=== PATIENT | male | born 1945 | race Caucasian/White ===

== ENCOUNTER → 2018-01-18 | Outpatient (CLI) | payer MEDICARE, BC ==
--- NOTE | 2018-01-25 09:54 | P.ARTDOP ---
Arterial Doppler LOWER EXTREMITY ARTERIAL DOPPLER: DATE OF SERVICE: 01/18/2018 Reason for study: Bilateral leg weakness, unable to walk. Doppler waveforms: Multiphasic bilaterally throughout. Pulse volume recording: Normal configuration. Pressure gradients: None. Ankle-brachial indices: Greater than 1 bilaterally. Toe pressures: [] on the right, [] on the left Impression: Normal study.
== END | disposition home or self-care (01) ==
LOC: RADUSWWP 14:09
PROVIDERS: ATTEND Psychiatry & Neurology Neurology
DX: I70.213 Atherosclerosis of native arteries of extremities with intermittent claudication, bilateral legs (principal)
CPT/HCPCS: 93923

== ENCOUNTER → 2019-04-19 | Outpatient (CLI) | payer MEDICARE, BC ==
--- NOTE | 2019-04-20 10:57 | NM ---
EXAMINATION TYPE: NM thyroid image w uptake DATE OF EXAM: 04/20/2019 COMPARISON: NONE HISTORY: Change in weight, heart palpitations TECHNIQUE: Thyroid iodine uptake is calculated and images performed after the oral administration of 302 uCi 1-123 Capsule. FINDINGS: There is a diffuse increased uptake throughout both lobes of the thyroid. Questionable cold defect involving the inferolateral right thyroid lobe.. The 4 hour iodine uptake is calculated at 1 5.2% (normal range 8-14%). The 24-hour iodine uptake is calculated at 41.1% (normal range 15-35%). IMPRESSION: 1. Findings are suggestive of hyperthyroidism. 2. Questionable cold defect inferior lateral right lobe thyroid for which ultrasound suggested.
== END | disposition home or self-care (01) ==
LOC: RADNMMAIN 09:26
PROVIDERS: ATTEND Family Medicine
DX: R94.6 Abnormal results of thyroid function studies (principal); Z88.1 Allergy status to other antibiotic agents
CPT/HCPCS: 78014; A9516

== ENCOUNTER → 2019-05-04 | Outpatient (CLI) | payer MEDICARE, BC ==
--- NOTE | 2019-05-04 14:27 | US ---
EXAMINATION TYPE: US thyroid st tissue head/neck DATE OF EXAM: 05/04/2019 COMPARISON: NM 04/19/19 CLINICAL HISTORY: E04.1 RT LOBE NODULE. Abnormal nuclear study. Abnormal thyroid labs. GLAND SIZE: Right Lobe: 5.2 x 2.1 x 1.9 cm Overall Parenchyma: heterogenous Left Lobe: 4.2 x 1.6 x 1.4 cm Overall Parenchyma: heterogeneous Isthmus Thickness: 0.5 cm NODULES RIGHT: # of nodules measured on right: ?1 1. 1.1 X 0.3 x 0.9 cm isoechoic solid nodule at the lower pole with poorly defined margins; possibl e extrathyroid extension. This nodule is taller than wide and shows intranodular vascularity. Prior size: No previous ? Nodule vs normal thyroid tissue. LEFT: # of nodules measured on left: 0 ISTHMUS: # of nodules measured in the isthmus: 1 1. 0.3 cm simple cyst toward right side. Bilateral neck scanned, no evidence of lymphadenopathy. Right lymph node = 1.3 x 0.7 x 0.6 cm IMPRESSION: Cannot exclude marked far posterior mid to lower pole right thyroid nodule. Total points 6, TR 4 lesion. Advise ultrasound follow-up.
== END | disposition home or self-care (01) ==
LOC: RADUSWWP 13:34
PROVIDERS: ATTEND Family Medicine
DX: E04.1 Nontoxic single thyroid nodule (principal); R22.0 Localized swelling, mass and lump, head; E05.90 Thyrotoxicosis, unspecified without thyrotoxic crisis or storm; Z91.048 Other nonmedicinal substance allergy status; Z88.8 Allergy status to other drugs, medicaments and biological substances
CPT/HCPCS: 76536

== ENCOUNTER → 2019-05-25 | Outpatient (CLI) | payer MEDICARE, BC ==
--- NOTE | 2019-05-28 12:29 | CT ---
EXAMINATION TYPE: CT soft tissue neck wo con DATE OF EXAM: 05/25/2019 COMPARISON: Ultrasound 05/04/2019 HISTORY: 73-year-old male abnormal results thyroid function test. TECHNIQUE: Contiguous axial scanning of the soft tissues of the neck without IV contrast. Coronal and sagittal reconstructions performed. CT DLP: 500.6 mGycm Automated exposure control for dose reduction was used. FINDINGS: Visualized intracranial structures, orbits and globes, paranasal sinuses, and mastoid air cells appea r clear. Lack of IV contrast limits assessment of the cervical mucosal space and also makes it more difficult to assess for underlying lymphadenopathy. In the visualized upper thorax, large caliber to the main left pulmonary artery at 3.2 cm suggests un derlying pulmonary arterial hypertension. Nonenlarged and borderline to mildly enlarged mediastinal lymph nodes measure up to 1 cm precarinal r egion, 9 mm AP window, and 1 cm upper right paratracheal. There is a cutaneous/subcutaneous nodule along the anterior right upper chest measuring 1.3 cm that s hould be correlated with physical exam. Right lobe of the thyroid gland is mildly enlarged at 5.3 cm craniocaudal. There is a subtle nodular extension from the posterior lower pole of the right lobe, reference axial image 40 and sagittal imag e 37 which may correspond to the nodule seen on ultrasound. This is a very subtle finding only seen a fter correlation with the recent ultrasound. The mandibular and parotid glands appear satisfactory. Scattered small abnormal calcifications are present along the cheeks of uncertain clinical significan ce. No suspicious cervical lymphadenopathy identified. Bones: Moderate to advanced endplate spondylotic change throughout with reversal of the normal cervic al lordosis and degenerative or posttraumatic interbody ankylosis at C3-C4 with fixed grade 1 retroli sthesis here. IMPRESSION: 1. AFTER CORRELATING WITH THE PATIENT'S RECENT 05/04/2019 THYROID ULTRASOUND, THERE IS VERY SUBTLE NOD ULAR EXTENSION FROM THE POSTERIOR LOWER POLE OF THE RIGHT THYROID LOBE PROBABLY CORRESPONDING TO THE NODULE SEEN ON 05/04/2019. THIS CAN BE FOLLOWED BY ULTRASOUND. 2. A CUTANEOUS/SUBCUTANEOUS NODULE MEASURING 1.3 CM ALONG THE ANTERIOR RIGHT UPPER CHEST. CORRELATE W ITH PHYSICAL EXAM FINDINGS TO EXCLUDE A SUSPICIOUS CUTANEOUS LESION. FINDING MAY REPRESENT A SEBACEOU S CYST. 3. MEASUREMENTS SUGGEST UNDERLYING PULMONARY ARTERIAL HYPERTENSION. CLINICALLY CORRELATE. 4. IN ADDITION, BORDERLINE ENLARGED MEDIASTINAL LYMPH NODES ARE SEEN IN THE UPPER THORAX. THREE-MONTH FOLLOW-UP CONTRAST ENHANCED CT CHEST RECOMMENDED TO REASSESS.
== END | disposition home or self-care (01) ==
LOC: RADCTMAIN 14:38
PROVIDERS: ATTEND Family Medicine
DX: E04.1 Nontoxic single thyroid nodule (principal); R94.6 Abnormal results of thyroid function studies; R22.2 Localized swelling, mass and lump, trunk; I77.89 Other specified disorders of arteries and arterioles; R59.0 Localized enlarged lymph nodes
CPT/HCPCS: 70490

== ENCOUNTER → 2019-06-23 | Outpatient (CLI) | payer MEDICARE, BC ==
[2019-06-23 14:59] LABS: HCT 31.5 % (39.0-53.0); MCH 26.3 pg (25.0-35.0); MCHC 31.6 g/dL (31.0-37.0); Platelet Count 165 k/uL (150-450); RBC 3.79 m/uL (4.30-5.90); RDW 15.7 % (11.5-15.5); WBC 2.1 k/uL (3.8-10.6)
[2019-06-23 15:05] LABS: Prothrombin Time 10.5 sec (9.0-12.0)
[2019-06-23 15:06] LABS: Calcium 9.3 mg/dL (8.4-10.2); Potassium 4.2 mmol/L (3.5-5.1); Total Bilirubin 0.7 mg/dL (0.2-1.3); Total Protein 6.5 g/dL (6.3-8.2)
[2019-06-23 15:07] LABS: Appearance,Urine Clear (Clear); Bilirubin,Urine Negative (Negative); Blood,Urine Negative (Negative); Color,Urine Yellow; Glucose,Urine (UA) Negative (Negative); Ketones,Urine Negative (Negative); Leukocyte Esterase,Urine Negative (Negative); Nitrite,Urine Negative (Negative); PH, Urine 6.5 (5.0-8.0); Protein,Urine Negative (Negative); Specific Gravity,Urine 1.014 (1.001-1.035); Urobilinogen,Urine <2.0 mg/dL (<2.0)
== END | disposition home or self-care (01) ==
LOC: LABPAT 13:45
PROVIDERS: ATTEND Orthopaedic Surgery
DX: Z01.818 Encounter for other preprocedural examination (principal); Z01.812 Encounter for preprocedural laboratory examination; M17.11 Unilateral primary osteoarthritis, right knee
CPT/HCPCS: 36415; 80053; 81003; 85027; 85610; 85730; 86850; 86900; 86901; 87070; 93005

== ENCOUNTER → 2019-09-11 | Outpatient (CLI) | payer MEDICARE, BC ==
[2019-09-11 11:47] LABS: African American GFR (CKD) >90 (>60 ml/min/1.73 sqM); Blood Urea Nitrogen 21 mg/dL (9-20); Non-African American GFR(CKD) 84 (>60 ml/min/1.73 sqM)
--- NOTE | 2019-09-11 13:10 | CT ---
EXAMINATION TYPE: CT chest w con DATE OF EXAM: 09/11/2019 COMPARISON: Neck CT May 25, 2019 HISTORY: new found lymphadenopathy on prior neck ct, abnormal CT. CT DLP: 408.3 mGycm. Automated Exposure Control for Dose Reduction was Utilized. TECHNIQUE: CT scan of the thorax is performed following with IV Contrast, patient injected with 100 mL of Isovue 300. FINDINGS: LUNGS: Mild to moderate linear scarring and/or atelectasis in both lower lobes most prominent just ab ove diaphragm. No suspicious nodules or masses. No pleural effusion or pneumothorax bilaterally. MEDIASTINUM: Correlating with neck CT there are prominent but subcentimeter lymph nodes throughout th e mediastinum. Right paratracheal lymph node measuring 1.3 x 0.9 cm axial image 17 not significantly changed from prior study image 24. 2 adjacent prominent pericarinal lymph nodes axial image 26 noted, largest measures 1.5 x 1.1 cm axial image 26. Small pericardial effusion is seen most prominent infe riorly. Cardiomegaly. Moderate three-vessel coronary artery calcification with moderate to severe chance trial dilatation. OTHER: Prominent bilateral subareolar gynecomastia. Splenomegaly measuring 17.0 cm long axis axial im age 67. Subcutaneous vertical sutures overlying the upper to mid abdomen are partially imaged. Occasi onal diverticula visualized colon. Mild fluid signal throughout the upper abdominal mesentery. Spine is straightened with mild multilevel spurring. Prominent but subcentimeter bilateral axillary lymph n odes. Stable 1.2 cm right upper medial subcutaneous lesion axial image 18 presumed dermatologic or ot her benign etiology. IMPRESSION: Prominent borderline enlarged thoracic lymph nodes as detailed above without significant change from prior CT. Cannot exclude neoplastic process such as lymphoma. Mild leah mesentery though t present. Splenomegaly noted. Need for further workup with PET CT or CT abdomen and pelvis study angely uld be based on clinical and lab correlation.
== END | disposition home or self-care (01) ==
LOC: RADCTMAIN 11:08
PROVIDERS: ATTEND Internal Medicine Hematology & Oncology
DX: R59.0 Localized enlarged lymph nodes (principal); R91.8 Other nonspecific abnormal finding of lung field
CPT/HCPCS: 82565; 84520; 71260; 36415; Q9967

== ENCOUNTER 2020-12-26 06:29 | Day surgery (SDC) | payer MEDICARE, BC ==
[2020-12-23 16:07] VITALS: BMI 27.1
[~2020-12-26 06:29] MED LIST: LACTATED RINGERS 1,000 ML IV SCH; LIDOCAINE 1% (10MG/ML) FOR IV START INTRADERMA PRN
[2020-12-26 06:59] VITALS: RESP 16; TEMP 97.9
[2020-12-26] MEDS ORDERED: PROPOFOL 10 MG/ML 20 ML VIAL IV ONE (07:06)
[2020-12-26] MEDS ORDERED: fentaNYL (PF) 50 MCG/ML 2 ML AMP ONE (07:06)
[2020-12-26 08:00] LABS: Basophils % (A) 0 %; Eosinophils # (A) 0.1 k/uL (0-0.7); Eosinophils % (A) 4 %; HCT 31.8 % (39.0-53.0); HGB 10.1 gm/dL (13.0-17.5); Lymphocytes # (A) 0.6 k/uL (1.0-4.8); Lymphocytes % (A) 28 %; MCH 27.8 pg (25.0-35.0); MCHC 31.7 g/dL (31.0-37.0); MCV 87.6 fL (80.0-100.0); Mean Platelet Volume 7.3; Monocytes # (A) 0.2 k/uL (0-1.0); Monocytes % (A) 8 %; Neutrophils # (A) 1.1 k/uL (1.3-7.7); Neutrophils % (A) 57 %; Platelet Count 155 k/uL (150-450); RBC 3.63 m/uL (4.30-5.90); RDW 14.4 % (11.5-15.5); Reticulocyte % 1.7 % (0.5-2.0)
[2020-12-26 08:13] VITALS: BP 125/78; PULSE 48
--- NOTE | 2020-12-26 08:26 | PCN ---
PROCEDURE NOTE PROCEDURE: Bone marrow aspirate and biopsy. DATE OF PROCEDURE: December 26, 2020. PREOPERATIVE DIAGNOSIS: Pancytopenia. POSTOPERATIVE DIAGNOSIS: Pancytopenia. SITE: Right iliac crest. ANESTHESIA: Local with IV systemic sedation. DETAILS: Utilizing sterile technique, the skin overlying the right iliac crest was prepared with Betadine and alcohol. After adequate sterile draping, systemic sedation and local anesthesia with 1% lidocaine, a size 11, 4-inch Jamshidi needle was utilized to access the periosteum with ease. A total of 16 mL of aspirate and 3 cm bone core biopsies were obtained. The patient tolerated the procedure very well. There was no immediate procedure related complications. TOTAL BLOOD LOSS: Less than 1 mL. RESULTS: Pending. MMODL / IJN: [id number] /
== END 2020-12-26 08:13 | disposition home or self-care (01) ==
LOC: OR 06:29
PROVIDERS: ATTEND Internal Medicine Hematology & Oncology
DX: D72.810 Lymphocytopenia (principal); D70.8 Other neutropenia; I10 Essential (primary) hypertension; Z98.890 Other specified postprocedural states; Z90.89 Acquired absence of other organs; Z80.3 Family history of malignant neoplasm of breast; Z80.42 Family history of malignant neoplasm of prostate; Z86.19 Personal history of other infectious and parasitic diseases; E53.8 Deficiency of other specified B group vitamins; D50.9 Iron deficiency anemia, unspecified; I48.92 Unspecified atrial flutter; I27.20 Pulmonary hypertension, unspecified; E07.9 Disorder of thyroid, unspecified; K21.9 Gastro-esophageal reflux disease without esophagitis; Z79.01 Long term (current) use of anticoagulants; Z79.899 Other long term (current) drug therapy
CPT/HCPCS: 85025; 85045; 38222; J3010; J2704

== ENCOUNTER → 2021-06-10 | Outpatient (CLI) | payer MEDICARE, BC ==
[2021-06-10 14:52] LABS: INR 1.1 (<1.2); Partial Thromboplastin Time 28.7 sec (22.0-30.0); Prothrombin Time 11.3 sec (9.0-12.0)
[2021-06-10 22:57] LABS: HCT 32.4 % (39.6-50.0); MCH 27.9 pg (27.0-32.0); MCHC 30.9 g/dL (32.0-37.0); MCV 90.5 fL (80.0-97.0); Mean Platelet Volume 10.9 fL (9.5-12.2); Platelet Count 175 X 10*3/uL (140-440); RBC 3.58 X 10*6/uL (4.40-5.60); RDW 14.5 % (11.5-14.5); WBC 2.37 X 10*3/uL (4.50-10.00)
[2021-06-11 05:40] LABS: African American GFR (CKD) 80.7 (60.0-200.0); Albumin 4.3 g/dL (3.8-4.9); Albumin/Globulin Ratio 1.74 (1.60-3.17); Anion Gap 15.5 mmol/L (4.00-12.00); BUN/Creat Ratio 16.76 Ratio (12.00-20.00); Blood Urea Nitrogen 17.6 mg/dL (9.0-27.0); Globulin 2.5 g/dL (1.6-3.3); Non-African American GFR(CKD) 69.6 (60.0-200.0); Total Bilirubin 0.5 mg/dL (0.30-1.20); Total Protein 6.7 g/dL (6.2-8.2)
== END | disposition home or self-care (01) ==
LOC: LABWHC1 13:51
PROVIDERS: ATTEND Orthopaedic Surgery
DX: Z01.812 Encounter for preprocedural laboratory examination (principal)
CPT/HCPCS: 36415; 80053; 85027; 85610; 85730; 87070; 93005

== ENCOUNTER → 2021-07-16 | Outpatient (CLI) | payer MEDICARE, BC ==
[2021-07-16 12:49] LABS: INR 1.1 (<1.2); Partial Thromboplastin Time 29.7 sec (22.0-30.0); Prothrombin Time 11.1 sec (9.0-12.0)
[2021-07-16 13:13] LABS: Appearance,Urine Clear (Clear); Bilirubin,Urine Negative (Negative); Blood,Urine Trace (Negative); Color,Urine Yellow; Glucose,Urine (UA) Negative (Negative); Hyaline Casts,Urine 3 /lpf (0-2); Ketones,Urine Negative (Negative); Leukocyte Esterase,Urine Negative (Negative); Mucus,Urine Rare /hpf; Nitrite,Urine Negative (Negative); PH, Urine 5.5 (5.0-8.0); Protein,Urine 1+ (Negative); RBC,Urine 4 /hpf (0-5); Specific Gravity,Urine 1.026 (1.001-1.035); Squamous Epithelial Cell,Urine <1 /hpf (0-4); Urobilinogen,Urine <2.0 mg/dL (<2.0); WBC,Urine 2 /hpf (0-5)
== END | disposition home or self-care (01) ==
LOC: LABPAT 11:38
PROVIDERS: ATTEND Orthopaedic Surgery
DX: Z01.812 Encounter for preprocedural laboratory examination (principal); M17.11 Unilateral primary osteoarthritis, right knee
CPT/HCPCS: 81001; 85610; 85730

== ENCOUNTER 2021-07-22 11:38 | Day surgery (SDC) | payer MEDICARE, BC ==
[2021-07-15 10:45] VITALS: BMI 27.8
[~2021-07-22 11:38] MED LIST changes: +ACETAMINOPHEN TAB 500 MG TAB PO PRN; +DEXAMETHASONE SOD PHOSPHATE 4 MG/ML 1 ML VIAL IV ONE; +GABAPENTIN 300 MG CAP PO PRN; -LACTATED RINGERS 1,000 ML IV SCH; -LIDOCAINE 1% (10MG/ML) FOR IV START INTRADERMA PRN; +MELOXICAM 7.5 MG TAB PO PRN; +MIDAZOLAM 2 MG/2 ML VIAL IV PRN; +ONDANSETRON 4 MG/2 ML VIAL IVP ONE; +ROPIVACAINE/EPI/CLONIDINE/KET 50 ML SYRINGE MISCELLANE PRN; +TRANEXAMIC ACID 1,000 MG in SODIUM CHLORIDE 0.9% 100 ML IVPB PRN
[2021-07-22] MEDS ORDERED: MIDAZOLAM 2 MG/2 ML VIAL IVP ONE (12:50)
[2021-07-22] MEDS: LACTATED RINGERS 1,000 ML IV SCH (12:56)
[2021-07-22] MEDS ORDERED: HYDROmorphone 0.5 MG/0.5 ML SYRINGE IVP PRN ×2 (13:11)
[2021-07-22] MEDS ORDERED: ePHEDrine 50 MG/ML 1 ML AMP ONE (13:11)
[2021-07-22] MEDS ORDERED: fentaNYL (PF) 50 MCG/ML 2 ML AMP ONE (13:11)
[2021-07-22] MEDS ORDERED: MAGNESIUM HYDROXIDE 2,400 MG/10 ML CUP PO PRN (13:11)
[2021-07-22] MEDS ORDERED: PROPOFOL 10 MG/ML 20 ML VIAL IV ONE (13:11)
[2021-07-22] MEDS ORDERED: NALOXONE 0.4 MG/ML 1 ML VIAL IV PRN (13:11)
[2021-07-22] MEDS ORDERED: HYDROmorphone 0.2 MG/1 ML SYRINGE IVP PRN (13:11)
[2021-07-22] MEDS ORDERED: DEXAMETHASONE SOD PHOSPHATE 4 MG/ML 1 ML VIAL ONE (13:11)
[2021-07-22] MEDS ORDERED: bisacodyL 10 MG SUPP RECTAL PRN (13:11)
[2021-07-22] MEDS ORDERED: GLYCOPYRROLATE 0.2 MG/ML 2 ML VIAL ONE (13:11)
[2021-07-22] MEDS ORDERED: MIDAZOLAM 2 MG/2 ML VIAL ONE (13:11)
[2021-07-22] MEDS ORDERED: PHENYLEPHRINE-0.9% NACL SYG 1,000 MCG/10 ML SYRINGE ONE (13:11)
[2021-07-22] MEDS ORDERED: ROPIVACAINE 5 MG/ML 30 ML VIAL ONE (13:11)
[2021-07-22] MEDS ORDERED: ONDANSETRON 4 MG/2 ML VIAL IVP PRN (13:11)
[2021-07-22] MEDS ORDERED: NA PHOS,M-B/NA PHOS,DI-BA 133 ML ENEMA RECTAL PRN (13:11)
[2021-07-22] MEDS ORDERED: SODIUM CHLORIDE 0.9% 100 ML BAG ONE (13:11)
[2021-07-22] MEDS ORDERED: TRANEXAMIC ACID 1,000 MG/10 ML VIAL ONE (13:11)
[2021-07-22] MEDS ORDERED: HYDROcodone/APAP 7.5-325MG 1 EACH TAB PO PRN (13:12)
[2021-07-22] MEDS ORDERED: ceFAZolin 1,000 MG in SODIUM CHLORIDE 0.9% 1,000 ML IRRIGATION ONE (13:16)
[2021-07-22] MEDS ORDERED: LACTATED RINGERS 1,000 ML IV ONE ×4 (14:10→17:25)
--- NOTE | 2021-07-22 14:40 | P.OP ---
Date of Procedure: 07/22/21 Preoperative Diagnosis: Severe osteoarthritis right knee Postoperative Diagnosis: Severe osteoarthritis right knee Procedure(s) Performed: Right total knee arthroplasty Implants: Welch [employer] Nephew Journey II Oxinium bicruciate stabilized femoral component size 7, right [employer] Journey nonporous tibial baseplate size 7, right [employer] Journey II, constrained articular insert, size 9 mm, Size 7-8, right [employer] Journey Johnna II resurfacing patellar component, oval, 35 mm All components were cemented using Palacos R bone cement The articulation is Oxinium on polyethylene Anesthesia: spinal Surgeon: Bo Martinez Furnace Filler #1: Lola Ferguson Furnace Filler #2: Taiwo Hutchinson Estimated Blood Loss (ml): 50 Pathology: other (Bone and cartilage) Condition: stable Disposition: PACU Indications for Procedure: After failure of conservative treatment we discussed the surgical and nonsurgical treatment options at length. Patient wishes to proceed with a total knee arthroplasty. Complications specific to this procedure were discussed at length, including but not limited to infection, bleeding, stiffness, and nerve injury. Covid-19 was also discussed at length with the patient, and they are aware of the current policies and procedures. The patient was given the option of delaying surgery, but they elect to proceed knowing these risks. Patient is aware of all these complications and informed consent was obtained Operative Findings: The operative findings are consistent with severe osteoarthritis of the right knee Description of Procedure: Patient was seen in the preoperative area and the consent was reviewed and the operative site was marked with a skin marker. The patient verified the procedure and the operative site. An adductor canal pain catheter and an iPACK block was placed by anesthesia in the preoperative area. The patient was then brought to the operating room and given preoperative antibiotics intravenously. A gram of transexamic acid was given intravenously. A spinal anesthetic was administered by the anesthesia department. A tourniquet was placed on the upper thigh and the lower extremity was prepped with chlorhexidine and draped in usual sterile fashion. A universal timeout was then performed which confirmed the patient's name, surgical site, ALLERGIES, and consent. The lower extremity was then exsanguinated and tourniquet was inflated to 250 mmHg. A standard anterior midline approach to the knee was performed. The skin and subcutaneous tissue were sharply dissected down to the patellar tendon. A medial parapatellar arthrotomy was then performed. The knee was then extended, the patellar was everted, and the knee was again flexed. The infra-patellar fat pad was removed in order to enhance exposure. The anterior horns of both menisci were excised, and a release was performed to the posterior medial aspect of the knee. On gross visual inspection, there was complete loss of articular cartilage in the medial and patellofemoral joint spaces. There was also significant cartilage damage in the lateral compartment. There were multiple periarticular osteophytes globally about the knee which were then removed with a Ronguer. The femoral canal was then opened with the 9.5 mm intramedullary drill. The 8 mm intramedullary opal was then inserted into the femoral canal with the distal femoral cutting guide set for 5 of valgus. The distal femoral cutting block was then pinned in place. The intramedullary opal was then removed, and the distal femur was then cut. The cutting block was then removed and the cut was checked for symmetry. The resected bone was then measured to confirm the appropriate distal femoral resection. Next, the sizing guide was then placed and set for 3 external rotation based off of the epicondylar axis and Whitesides line. Pins were then placed and the drill holes, and the femur was sized with the sizing stylus. The pins were then removed, and the sizing guide was then removed. The spikes of the femoral block was then placed into the predrilled holes, and malleted into place. Two 45 mm pins were then placed into the fixation holes on the cutting block. An cherri wing was then used to ensure there would be no notching with the anterior cut. The anterior condyles were cut without notching. The anterior chord cut was then performed, followed by the posterior cut, posterior chamfer cut, and the anterior chamfer cut. The collateral ligaments were protected during the entire process. The cutting blo ck was then removed. Any remaining bone and osteophytes were removed from the femur with a Rominger. The femoral canal was plugged with autologous bone. Attention was then directed to the tibia. The remaining ACL was removed with a Ronguer, and the tibia was then gently subluxed forward with a large bent knee retractor. Any remaining menisci were excised. The posterior lateral corner was cauterized in order to coagulate the lateral geniculate artery. The extra medullary tibial cutting guide was then placed, set for the appropriate rotation, slope, and depth of resection. The proximal tibia cutting guide was then pinned in place. Proximal tibia was then cut and sized. The femoral trial was placed. A narrow saw blade was then used to remove the anterior intracondylar femoral bone. The CR notch trial was then placed. The tibial trial was placed with the appropriate-sized insert. The knee was able to fully extend and flex to 130 and was stable throughout all range of motion. The knee was then extended and the patella was everted. Patella was then measured, and then using an osteotomy guide, the patella was cut at the appropriate level. The patella was then measured and drilled and the patella trial was then placed. The knee was then taken through range of motion with the patella trial and the patella tracked normally using the no thumbs technique.. The knee was then extended patella trial was then removed and the patella was everted. Knee was then flexed and lug holes were drilled through the femoral trial and the femoral trial was then removed. The tibial was then re-exposed, and the tibial broach guide was then pinned in place after it was set for the appropriate rotation to allow for the most coverage without overhang. The tibia was then reamed and broached. The cut surfaces of bone were then irrigated with pulsatile lavage. The knee was also irrigated with Irrisept solution. The components were then opened, the cement was mixed, and the components were then cemented in place. The cement was allowed to harden with the knee in full extension. After the cemented hardened. The tourniquet was released, and hemostasis was obtained. A second gram of transexamic acid was given intravenously. The knee was again irrigated. The knee was again taken through range of motion and found to be stable throughout all range of motion of 0-130, and the patella tracked normally. The fascia was then closed with 0 Vicryl followed by #2 strata fix suture. The subcutaneous tissue was closed with 3-0 Vicryl and 3-0 strata fix. Exofin glue was used for the skin and placed with the knee in flexion. After the glue had dried, and Optafoam silver impregnated dressing was applied. The patient was then transferred to recovery room in stable condition. The human resources assistant manager HANY Andujar was required due the complexity surgery and the need for a skilled surgical garment inspector. She assisted in positioning, draping, retraction, and closure of the wound.
--- NOTE | 2021-07-22 16:06 | XR ---
EXAMINATION TYPE: XR knee limited RT DATE OF EXAM: 07/22/2021 COMPARISON: NONE TECHNIQUE: Two views submitted HISTORY: Post op FINDINGS: There is a prosthetic knee in near anatomic alignment. There is soft tissue edema and emphysema. IMPRESSION: 1. Postoperative change. Appears in near-anatomic alignment
[2021-07-22] MEDS: HYDROmorphone 0.5 MG/0.5 ML SYRINGE IVP PRN ×2 (16:49→17:14)
[2021-07-22] MEDS: SODIUM CHLORIDE 0.9% 1,000 ML IV SCH (17:57)
--- NOTE | 2021-07-22 19:37 | P.ANPRN ---
Procedure Note - Anesthesia - Nerve Block Performed Right Adductor Canal Infusion Time Out Performed: Yes Date of Procedure: 07/22/21 Procedure Start Time: 12:49 Procedure Stop Time: 12:59 Location of Patient: PreOp Indication: Acute Post-Operative Pain, Requested by Surgeon Sedation Type: Sedate with meaningful contact maintained Preparation: Sterile Prep, Sterile Dressing Position: Supine Catheter: Indwelling Needle Types: Pajunk Needle Gauge: 21 Ultrasound used to visualize needle placement: Yes Ultrasound used to observe medication spread: Yes Blood Aspirated: No Pain Paresthesia on Injection Noted: No Resistance on Injection: Normal Image Stored and Saved: Yes Events: Uneventful and Well Tolerated (ropi .5% 20cc)
--- NOTE | 2021-07-22 19:38 | P.ANPRN ---
Procedure Note - Anesthesia - Nerve Block Performed Right Jovanck Single Time Out Performed: Yes Date of Procedure: 07/22/21 Procedure Start Time: 13:00 Procedure Stop Time: 13:05 Location of Patient: PreOp Indication: Acute Post-Operative Pain, Requested by Surgeon Sedation Type: Sedate with meaningful contact maintained Preparation: Sterile Prep Position: Supine Needle Types: Pajunk Needle Gauge: 21 Ultrasound used to visualize needle placement: Yes Ultrasound used to observe medication spread: Yes Blood Aspirated: No Pain Paresthesia on Injection Noted: No Resistance on Injection: Normal Image Stored and Saved: Yes Events: Uneventful and Well Tolerated (ropi .5% 25cc plus dexamethasone 4mg)
[2021-07-22] MEDS ORDERED: SENNOSIDES-DOCUSATE SODIUM 1 EACH TAB PO SCH (21:00)
[2021-07-22] MEDS: HYDROcodone/APAP 7.5-325MG 1 EACH TAB PO PRN (21:20)
[2021-07-23] MEDS: HYDROcodone/APAP 7.5-325MG 1 EACH TAB PO PRN ×2 (05:20→11:12)
[2021-07-23] MEDS: LACTATED RINGERS 1,000 ML IV SCH (06:16)
--- NOTE | 2021-07-23 07:33 | P.DS ---
Providers Expected date of discharge: 07/23/21 Attending physician: Bo Martinez Consults: 07/22/21 13:11 Consult Physician Routine Consulting Provider: Clovis Espinosa Consult Reason/Comments: medical management Do you want consulting provider notified?: Yes Primary care physician: Clovis Espinosa - Discharge Diagnosis(es) (1) Primary localized osteoarthritis of right knee Current Visit: Yes Status: Acute (2) Status post total right knee replacement Current Visit: Yes Status: Acute Hospital Course: This is a 75-year-old male who was last seen with complaint of continued right knee pain. The patient has a known history of degenerative arthritis of the right knee and presents to discuss surgical options. After discussion and consideration the patient elects to proceed with total right knee arthroplasty. The patient is seen preoperatively by his primary care physician and cleared for surgery. The patient is admitted to [facility] for total right knee arthroplasty. The procedure is performed without complication or sequelae. Patient is doing well postoperatively. Vital signs are stable at discharge. Labs are stable at discharge. the patient is ambulating well with walker with minimal assistance. The patient is discharged to home on postop day #1 pending medical clearance. Please see orders and refer to the med rec for accurate list of medications. Patient Condition at Discharge: Good Plan - Discharge Summary Discharge Rx Participant: No New Discharge Prescriptions: New HYDROcodone/APAP 7.5-325MG [Aurora 7.5-325] 1 - 2 tab PO Q6H PRN #32 tab PRN Reason: Pain Sennosides [Senokot] 2 tab PO DAILY PRN #60 tablet PRN Reason: Constipation Ondansetron Odt [Zofran Odt] 1 tab PO Q8HR PRN #10 tab PRN Reason: Nausea No Action Diclofenac Sodium [Voltaren] 75 mg PO BID PRN PRN Reason: Pain ALPRAZolam [Xanax] 0.5 mg PO QID PRN PRN Reason: Anxiety Multivit-Min/Folic/Vit K/Lycop [Men's Multivitamin Tablet] 1 each PO DAILY Ergocalciferol [Vitamin D2 (1250 Mcg = 72878 Iu)] 1,250 mcg PO Q30D Gabapentin 300 mg PO TID Folic Acid 1 mg PO DAILY Albuterol Sulfate [Ventolin HFA] 1 - 2 puff INHALATION Q6H PRN PRN Reason: Shortness Of Breath Apixaban [Eliquis] 5 mg PO BID hydroCHLOROthiazide [Hydrodiuril] 25 mg PO DAILY PRN PRN Reason: Edema Spironolactone [Aldactone] 25 mg PO DAILY PRN PRN Reason: swelling Dextroamphetamine/Amphetamine [Adderall Xr] 30 mg PO QAM Macitentan [Opsumit] 10 mg PO HS Losartan [Cozaar] 50 mg PO HS HYDROcodone/APAP 7.5-325MG [Aurora 7.5-325] 1 tab PO TID PRN PRN Reason: Pain Cyanocobalamin [Vitamin B-12 Injection] 1,000 mcg SQ WE Iron Infusions 1 dose IV Q90D Discharge Medication List ALPRAZolam [Xanax] 0.5 mg PO QID PRN 12/23/20 [History] Albuterol Sulfate [Ventolin HFA] 1 - 2 puff INHALATION Q6H PRN 12/23/20 [History] Apixaban [Eliquis] 5 mg PO BID 12/23/20 [History] Dextroamphetamine/Amphetamine [Adderall Xr] 30 mg PO QAM 12/23/20 [History] Diclofenac Sodium [Voltaren] 75 mg PO BID PRN 12/23/20 [History] Losartan [Cozaar] 50 mg PO HS 12/23/20 [History] Macitentan [Opsumit] 10 mg PO HS 12/23/20 [History] Multivit-Min/Folic/Vit K/Lycop [Men's Multivitamin Tablet] 1 each PO DAILY 12/23/20 [History] Spironolactone [Aldactone] 25 mg PO DAILY PRN 12/23/20 [History] hydroCHLOROthiazide [Hydrodiuril] 25 mg PO DAILY PRN 12/23/20 [History] Cyanocobalamin [Vitamin B-12 Injection] 1,000 mcg SQ WE 06/20/21 [History] Ergocalciferol [Vitamin D2 (1250 Mcg = 61655 Iu)] 1,250 mcg PO Q30D 06/20/21 [History] Folic Acid 1 mg PO DAILY 06/20/21 [History] Gabapentin 300 mg PO TID 06/20/21 [History] HYDROcodone/APAP 7.5-325MG [Aurora 7.5-325] 1 tab PO TID PRN 06/20/21 [History] Iron Infusions 1 dose IV Q90D 07/15/21 [History] HYDROcodone/APAP 7.5-325MG [Aurora 7.5-325] 1 - 2 tab PO Q6H PRN #32 tab 07/22/21 [Rx] Ondansetron Odt [Zofran Odt] 1 tab PO Q8HR PRN #10 tab 07/22/21 [Rx] Sennosides [Senokot] 2 tab PO DAILY PRN #60 tablet 07/22/21 [Rx] Follow up Appointment(s)/Referral(s): Bo Martinez DO [Doctor of Osteopathic Medicine] - 2 Weeks Activity/Diet/Wound Care/Special Instructions: Weightbearing as tolerated with a walker. CPM 5-6h daily as tolerated. Leave dressing intact. Dressing may be removed by home care nurse or by patient in 7 days. Then change dressing twice daily until follow up. May shower with initial dressing intact and after removal. If dressing become saturated, please remove. Recommend use of compression stockings daily until follow up to help prevent swelling and blood clots. May remove at night before sleeping. Please resume Eliquis. Please follow up with [facility] and call with any questions or concerns, . Discharge Disposition: HOME WITH HOME HEALTH SERVICES
--- NOTE | 2021-07-23 07:58 | P.PN ---
Progress Note - Text 07/23/21 711am 75-year-old male is post total knee replacement. Patient seen and evaluated this morning for postop pain control, On-Q pump solution running at 8 mL an hour, patient has a VAS of 1 at rest dressing clean dry and intact and to continue On-Q pump infusion
[2021-07-23 08:08] LABS: Basophils % (A) 0 %; Eosinophils % (A) 0 %; HCT 28.5 % (39.0-53.0); HGB 9.4 gm/dL (13.0-17.5); Lymphocytes # (A) 0.4 k/uL (1.0-4.8); Lymphocytes % (A) 8 %; MCH 28.7 pg (25.0-35.0); MCV 87.1 fL (80.0-100.0); Mean Platelet Volume 8.8; Monocytes # (A) 0.4 k/uL (0-1.0); Monocytes % (A) 9 %; Neutrophils # (A) 3.7 k/uL (1.3-7.7); Neutrophils % (A) 82 %; Platelet Count 149 k/uL (150-450); RBC 3.27 m/uL (4.30-5.90); RDW 14.2 % (11.5-15.5); WBC 4.5 k/uL (3.8-10.6)
[2021-07-23] MEDS ORDERED: APIXABAN 5 MG TAB PO SCH ×2 (09:00→11:45)
[2021-07-23] MEDS: SODIUM CHLORIDE 0.9% 1,000 ML IV SCH (09:16)
[2021-07-23 12:44] VITALS: BP 123/65; PULSE 51; RESP 17; TEMP 98.6
--- NOTE | 2021-07-24 15:12 | PN ---
PROGRESS NOTE DATE OF SERVICE: 07/23/2021. CHIEF COMPLAINT: Status post right TKA. HISTORY OF PRESENT ILLNESS: This gentleman is doing well. He has not had any fever, chills, difficulty urinating, nausea, vomiting, etc. He expects to go home today. PHYSICAL EXAMINATION: Chest is clear. Cardiac exam is unchanged. Abdomen is soft, nontender. Dressing is dry and pulses in the lower extremities are normal. IMPRESSION: Status post right TKA. PLAN: Probably home today. MMODL / IJN: [id number] /
--- NOTE | 2021-07-24 16:48 | CONS ---
CONSULTATION CHIEF COMPLAINT: Arthritis, right knee. HISTORY OF PRESENT ILLNESS: This gentleman was brought in for an elective TKA on the right side. REVIEW OF SYSTEMS: He has had no recent neurologic problems, chest pain, shortness of breath, abdominal pain, urinary complaints, etc. Past medical history, family history, and personal and social histories reveal that he has a long-standing history of congestive heart failure, pulmonary hypertension, cardiac murmur, coronary artery disease, vitamin D deficiency and pancytopenia. The remainder of his history, including medications, past medical history, family history and personal and social histories can all be found in his admitting summary. He cannot take SELENE inhibitors. He is currently on Lasix, gabapentin, diclofenac, omeprazole, Aldactazide, folic acid, D3, Ventolin HFA, losartan, Eliquis, Vicodin and Xanax. PHYSICAL EXAMINATION: Blood pressure 138/85 with a pulse of 70, respirations of 30. He is afebrile. In general he appeared to be slightly pale and in no acute distress. Skin color is otherwise normal. Lymph nodes are not enlarged. Head, ears, eyes, nose, mouth and throat are normal. Neck veins are not distended. Thyroid is not enlarged. Chest is clear. Cardiac exam demonstrates a faint grade 2/6 systolic murmur. Abdomen is soft, nontender. Extremities are normal. IMPRESSION: Osteoarthritis of right knee. RECOMMENDATIONS: None at this time. He seems to be doing well. Thank you. Respectfully, Clovis Espinosa II, M.D. MARLA / PADMINI: [phone] /
== END 2021-07-23 13:40 | disposition home health service (06) ==
LOC: OR 11:38 → 5NMEDONC 17:02 → OR 07-23 13:40
PROVIDERS: ATTEND Orthopaedic Surgery
DX: M17.11 Unilateral primary osteoarthritis, right knee (principal); Z20.822 Contact with and (suspected) exposure to COVID-19
CPT/HCPCS: 27447; 97162; 64999; 64448; 76942; 85025; 87635; 73560; C1713; C1776; J2250; J1100; J0690 ×3; J2405; J1170; 88300

== ENCOUNTER → 2021-11-06 | Outpatient (CLI) | payer MEDICARE, BC ==
[2021-11-06 14:35] LABS: INR 1.1 (<1.2); Partial Thromboplastin Time 35.5 sec (22.0-30.0)
[2021-11-06 18:24] LABS: African American GFR (CKD) 75.4 (60.0-200.0); Albumin 4.6 g/dL (3.8-4.9); Albumin/Globulin Ratio 1.76 (1.60-3.17); Anion Gap 11.8 mmol/L (10.00-18.00); BUN/Creat Ratio 15.68 Ratio (12.00-20.00); Blood Urea Nitrogen 17.4 mg/dL (9.0-27.0); Calcium 10.1 mg/dL (8.7-10.3); Carbon Dioxide 24.3 mmol/L (20.0-27.5); Globulin 2.6 g/dL (1.6-3.3); Non-African American GFR(CKD) 65.1 (60.0-200.0); Potassium 3.9 mmol/L (3.5-5.5); Total Bilirubin 0.7 mg/dL (0.30-1.20); Total Protein 7.2 g/dL (6.2-8.2)
[2021-11-06 18:26] LABS: HCT 35.1 % (39.6-50.0); HGB 10.4 g/dL (13.0-17.0); MCHC 29.6 g/dL (32.0-37.0); MCV 84.4 fL (80.0-97.0); Mean Platelet Volume 9.7 fL (9.5-12.2); NRBC Per 100 WBC 0 /100 WBCS (0.0-0.0); Platelet Count 151 X 10*3/uL (140-440); RBC 4.16 X 10*6/uL (4.40-5.60); WBC 2.22 X 10*3/uL (4.50-10.00)
== END | disposition home or self-care (01) ==
LOC: LABPAT 12:48
PROVIDERS: ATTEND Orthopaedic Surgery
DX: Z01.812 Encounter for preprocedural laboratory examination (principal)
CPT/HCPCS: 80053; 85027; 85610; 85730; 87070

== ENCOUNTER 2021-11-11 07:25 | Inpatient (IN) | payer MEDICARE, BC ==
[2021-11-05 16:27] VITALS: BMI 26.9
[~2021-11-11 07:25] MED LIST changes: -DEXAMETHASONE SOD PHOSPHATE 4 MG/ML 1 ML VIAL IV ONE; +LIDOCAINE 1% (10MG/ML) FOR IV START INTRADERMA PRN; -MIDAZOLAM 2 MG/2 ML VIAL IV PRN; -ROPIVACAINE/EPI/CLONIDINE/KET 50 ML SYRINGE MISCELLANE PRN; -TRANEXAMIC ACID 1,000 MG in SODIUM CHLORIDE 0.9% 100 ML IVPB PRN; +TRANEXAMIC ACID IN NACL,ISO-OS 1,000 MG in SALINE 1 100ML.BAG IVPB PRN
[2021-11-11] MEDS: LACTATED RINGERS 1,000 ML IV SCH (08:02)
[2021-11-11] MEDS ORDERED: NALOXONE 0.4 MG/ML 1 ML VIAL IV PRN (08:17)
[2021-11-11] MEDS ORDERED: ONDANSETRON 4 MG/2 ML VIAL IVP PRN (08:17)
[2021-11-11] MEDS ORDERED: MAGNESIUM HYDROXIDE 2,400 MG/10 ML CUP PO PRN (08:17)
[2021-11-11] MEDS ORDERED: NA PHOS,M-B/NA PHOS,DI-BA 133 ML ENEMA RECTAL PRN (08:17)
[2021-11-11] MEDS ORDERED: bisacodyL 10 MG SUPP RECTAL PRN (08:17)
[2021-11-11] MEDS ORDERED: HYDROmorphone 0.5 MG/0.5 ML SYRINGE IVP PRN ×2 (08:17)
[2021-11-11] MEDS ORDERED: DEXAMETHASONE SOD PHOSPHATE 4 MG/ML 1 ML VIAL IVP ONE (08:31)
[2021-11-11 08:47] LABS: INR 1.1 (<1.2); Partial Thromboplastin Time 29.8 sec (22.0-30.0); Prothrombin Time 11.9 sec (9.0-12.0)
[2021-11-11] MEDS ORDERED: MIDAZOLAM 2 MG/2 ML VIAL IVP ONE (08:55)
[2021-11-11] MEDS ORDERED: fentaNYL (PF) 50 MCG/ML 2 ML AMP IVP ONE ×2 (08:55→12:55)
[2021-11-11] MEDS ORDERED: GLYCOPYRROLATE 0.2 MG/ML 2 ML VIAL ONE (09:21)
[2021-11-11] MEDS ORDERED: MIDAZOLAM 2 MG/2 ML VIAL ONE (09:21)
[2021-11-11] MEDS ORDERED: SODIUM CHLORIDE 0.9% (PF) 10 ML VIAL ONE (09:21)
[2021-11-11] MEDS ORDERED: PROPOFOL 10 MG/ML 20 ML VIAL IV ONE (09:21)
[2021-11-11] MEDS ORDERED: ePHEDrine 50 MG/ML 1 ML VIAL ONE (09:21)
[2021-11-11] MEDS ORDERED: TRANEXAMIC ACID IN NACL,ISO-OS 1,000 MG/100 ML BAG ONE (09:21)
[2021-11-11] MEDS ORDERED: ROPIVACAINE 5 MG/ML 30 ML VIAL ONE (09:21)
[2021-11-11] MEDS ORDERED: ceFAZolin 1,000 MG in SODIUM CHLORIDE 0.9% 1,000 ML IRRIGATION ONE (09:51)
--- NOTE | 2021-11-11 10:20 | P.ANPRN ---
Procedure Note - Anesthesia - Nerve Block Performed Left Adductor Canal Infusion Time Out Performed: Yes (855) Date of Procedure: 11/11/21 Procedure Start Time: 08:56 Procedure Stop Time: 09:01 Location of Patient: PreOp Indication: Acute Post-Operative Pain, Requested by Surgeon Specifically requested for management of pain by DrJulián: Bo Martinez Sedation Type: Sedate with meaningful contact maintained Preparation: Sterile Prep, Sterile Dressing Position: Supine Catheter Depth at Skin (cm): 9 Catheter: Indwelling Needle Types: Pajunk Needle Gauge: 18 Ultrasound used to visualize needle placement: Yes Ultrasound used to observe medication spread: Yes Injectate: 0.5% Ropivacaine (see comment for volume) (15cc + 5cc nacl) Blood Aspirated: No Pain Paresthesia on Injection Noted: No Resistance on Injection: Normal Image Stored and Saved: Yes Events: Uneventful and Well Tolerated
--- NOTE | 2021-11-11 10:21 | P.ANPRN ---
Procedure Note - Anesthesia - Nerve Block Performed Left iPack Single Time Out Performed: Yes (0855) Date of Procedure: 11/11/21 Procedure Start Time: : Procedure Stop Time: : Location of Patient: PreOp Indication: Acute Post-Operative Pain, Requested by Surgeon Specifically requested for management of pain by DrJulián: Bo Martinez Sedation Type: Sedate with meaningful contact maintained Preparation: Sterile Prep Position: Supine Catheter: None Needle Types: Pajunk Needle Gauge: 21 Ultrasound used to visualize needle placement: Yes Ultrasound used to observe medication spread: Yes Injectate: 0.5% Ropivacaine (see comment for volume) (15cc + 5cc nacl) Blood Aspirated: No Pain Paresthesia on Injection Noted: No Resistance on Injection: Normal Image Stored and Saved: Yes Events: Uneventful and Well Tolerated
--- NOTE | 2021-11-11 10:42 | P.OP ---
Date of Procedure: 11/11/21 Preoperative Diagnosis: Severe osteoarthritis left knee Postoperative Diagnosis: Severe osteoarthritis left knee Procedure(s) Performed: Left total knee arthroplasty Implants: Welch [employer] Nephew Journey II CR Oxinium cruciate retaining femoral component size 7, left Welch [employer] Nephew Journey nonporous tibial baseplate size 7, left Welch [employer] Nephew Journey II, XLPE Deep Dished articular insert, size 9 mm, Size 7- 8, left [employer]hew Journey Johnna II resurfacing patellar component, oval, 35 mm All components were cemented using Palacos R bone cement The articulation is Oxinium on polyethylene Anesthesia: spinal Surgeon: Bo Martinez Cut Tobacco Bulker #1: Lola Ferguson Cut Tobacco Bulker #2: Preston Billingsley Estimated Blood Loss (ml): 50 Pathology: other (Bone and cartilage) Condition: stable Disposition: PACU Indications for Procedure: After failure of conservative treatment we discussed the surgical and nonsurgical treatment options at length. Patient wishes to proceed with a total knee arthroplasty. Complications specific to this procedure were discussed at length, including but not limited to infection, bleeding, stiffness, and nerve injury. Covid-19 was also discussed at length with the patient, and they are aware of the current policies and procedures. The patient was given the option of delaying surgery, but they elect to proceed knowing these risks. Patient is aware of all these complications and informed consent was obtained Operative Findings: The operative findings are consistent with severe osteoarthritis of the left knee Description of Procedure: Patient was seen in the preoperative area and the consent was reviewed and the operative site was marked with a skin marker. The patient verified the procedure and the operative site. An adductor canal pain catheter and an iPACK block was placed by anesthesia in the preoperative area. The patient was then brought to the operating room and given preoperative antibiotics intravenously. A gram of transexamic acid was given intravenously. A spinal anesthetic was administered by the anesthesia department. A tourniquet was placed on the upper thigh and the lower extremity was prepped with chlorhexidine and draped in usual sterile fashion. A universal timeout was then performed which confirmed the patient's name, surgical site, ALLERGIES, and consent. The lower extremity was then exsanguinated and tourniquet was inflated to 250 mmHg. A standard anterior midline approach to the knee was performed. The skin and subcutaneous tissue were sharply dissected down to the patellar tendon. A medial parapatellar arthrotomy was then performed. The knee was then extended, the patellar was everted, and the knee was again flexed. The infra-patellar fat pad was removed in order to enhance exposure. The anterior horns of both menisci were excised, and a release was performed to the posterior medial aspect of the knee. On gross visual inspection, there was complete loss of articular cartilage in the medial and patellofemoral joint spaces. There was also significant cartilage damage in the lateral compartment. There were multiple periarticular osteophytes globally about the knee which were then removed with a Ronguer. The femoral canal was then opened with the 9.5 mm intramedullary drill. The 8 mm intramedullary opal was then inserted into the femoral canal with the distal femoral cutting guide set for 5 of valgus. The distal femoral cutting block was then pinned in place. The intramedullary opal was then removed, and the distal femur was then cut. The cutting block was then removed and the cut was checked for symmetry. The resected bone was then measured to confirm the appropriate distal femoral resection. Next, the sizing guide was then placed and set for 3 external rotation based off of the epicondylar axis and Whitesides line. Pins were then placed and the drill holes, and the femur was sized with the sizing stylus. The pins were then removed, and the sizing guide was then removed. The spikes of the femoral block was then placed into the predrilled holes, and malleted into place. Two 45 mm pins were then placed into the fixation holes on the cutting block. An cherri wing was then used to ensure there would be no notching with the anterior cut. The anterior condyles were cut without notching. The anterior chord cut was then performed, followed by the posterior cut, posterior chamfer cut, and the anterior chamfer cut. The collateral ligaments were protected during the entire process. The cutting block was then removed. Any remaining bone and osteophytes were removed from the femur with a Ronguer. The femoral canal was plugged with autologous bone. Attention was then directed to the tibia. The remaining ACL was removed with a Ronguer, and the tibia was then gently subluxed forward with a large bent knee retractor. Any remaining menisci were excised. The posterior lateral corner was cauterized in order to coagulate the lateral geniculate artery. The extra medullary tibial cutting guide was then placed, set for the appropriate rotation, slope, and depth of resection. The proximal tibia cutting guide was then pinned in place. Proximal tibia was then cut and sized. The femoral trial was placed. A narrow saw blade was then used to remove the anterior intracondylar femoral bone. The CR notch trial was then placed. The tibial trial was placed with the appropriate-sized insert. The knee was able to fully extend and flex to 130 and was stable throughout all range of motion. The knee was then extended and the patella was everted. Patella was then measured, and then using an osteotomy guide, the patella was cut at the appropriate level. The patella was then measured and drilled and the patella trial was then placed. The knee was then taken through range of motion with the patella trial and the patella tracked normally using the no thumbs technique. The knee was then extended patella trial was then removed and the patella was everted. Knee was then flexed and lug holes were drilled through the femoral trial and the femoral trial was then removed. The tibial was then re-exposed, and the tibial broach guide was then pinned in place after it was set for the appropriate rotation to allow for the most coverage without overhang. The tibia was then reamed and bro ached. The cut surfaces of bone were then irrigated with pulsatile lavage. The knee was also irrigated with Irrisept solution. The components were then opened, the cement was mixed, and the components were then cemented in place. The cement was allowed to harden with the knee in full extension. After the cemented hardened, the tourniquet was released and hemostasis was obtained. A second gram of transexamic acid was given intravenously. The knee was again irrigated. The knee was again taken through range of motion and found to be stable throughout all range of motion of 0-130, and the patella tracked normally. The fascia was then closed with 0 Vicryl followed by #2 strata fix suture. The subcutaneous tissue was closed with 3-0 Vicryl and 3-0 strata fix. Exofin glue was used for the skin and placed with the knee in flexion. After the glue had dried, and Optafoam silver impregnated dressing was applied. The patient was then transferred to recovery room in stable condition. The assistants HANY Andujar and HANY Vickers were required due the complexity surgery and the need for a skilled surgical instrument technician. She assisted in positioning, draping, retraction, and closure of the wound.
[2021-11-11] MEDS ORDERED: ROPIVACAINE 0.2%-NS ON-Q PUMP 2 MG/ML EACH MISCELLANE ONE (11:21)
[2021-11-11] MEDS: HYDROmorphone 0.5 MG/0.5 ML SYRINGE IVP PRN ×5 (11:31→16:13)
--- NOTE | 2021-11-11 11:36 | XR ---
EXAMINATION TYPE: XR knee limited LT DATE OF EXAM: 11/11/2021 COMPARISON: NONE TECHNIQUE: Two views submitted HISTORY: Post op FINDINGS: There is a prosthetic knee in near anatomic alignment. There is soft tissue edema and emphysema. IMPRESSION: 1. Postoperative change. Appears in near-anatomic alignment
[2021-11-11] MEDS ORDERED: LACTATED RINGERS 1,000 ML IV ONE (11:45)
[2021-11-11] MEDS: SODIUM CHLORIDE 0.9% 1,000 ML IV SCH (13:44)
[2021-11-11] MEDS ORDERED: HYDROcodone/APAP 7.5-325MG 1 EACH TAB PO PRN (14:19)
[2021-11-11] MEDS ORDERED: ALPRAZolam 0.5 MG TAB PO PRN (19:11)
[2021-11-11] MEDS ORDERED: SENNOSIDES 8.6 MG TAB PO PRN (19:11)
[2021-11-11] MEDS ORDERED: SPIRONOLACTONE 25 MG TAB PO PRN (19:11)
[2021-11-11] MEDS ORDERED: hydroCHLOROthiazide 25 MG TAB PO PRN (19:11)
[2021-11-11] MEDS: HYDROcodone/APAP 7.5-325MG 1 EACH TAB PO PRN (19:51)
[2021-11-11] MEDS: SENNOSIDES-DOCUSATE SODIUM 1 EACH TAB PO SCH (20:27)
[2021-11-11] MEDS: LOSARTAN 50 MG TAB PO SCH (20:28)
[2021-11-11] MEDS: APIXABAN 5 MG TAB PO SCH ×2 (20:29→23:45)
[2021-11-11] MEDS: GABAPENTIN 300 MG CAP PO SCH (20:29)
--- NOTE | 2021-11-11 23:21 | CONS ---
CONSULTATION CHIEF COMPLAINT: Arthritis of the left knee. HISTORY OF PRESENT ILLNESS: This is another admission for this 75-year-old white male who had a prior knee replacement and is in for his second. He has a history of COPD, CAD, and congestive heart failure. He has had a mitral valve clip. He has been stable and doing well of late. He has had no fever, chest pain, shortness of breath, orthopnea, etc. Past medical history, family history, and personal and social histories reveal that his medications include: 1. Lasix 40 mg once a day. 2. Folic acid 1 mg once a day for anemia. 3. Diclofenac 75 once a day. 4. Omeprazole 20 mg once a day. 5. Aldactazide 25/25 once a day. 6. Gabapentin 300 mg 4 times a day. 7. Xanax 1 mg twice a day p.r.n. 8. Vitamin D. 9. Ventolin HFA. 10.Losartan 50 mg once a day. 11.Vicodin 10/325 p.r.n. 12.Ferrous sulfate. 13.Adderall 30 mg once a day. 14.Opsumit 10 mg twice a day. He has had numerous proceed surgical procedures. He does not smoke. PHYSICAL EXAMINATION: Blood pressure is 110/70 with a pulse of 51, respirations 16. He is afebrile. In general he appeared to be well developed, well nourished, slightly pale and comfortable. Head, ears, eyes, nose, mouth and throat were normal. Neck veins are not distended. Chest is clear. Cardiac exam demonstrated what sounded like sinus rhythm with a grade 1 systolic murmur. Abdomen is flat, soft and nontender. Extremities are normal. Neurologically he is intact. He is admitted to the hospital with diagnoses: 1. Osteoarthritis of the left knee. 2. Chronic obstructive pulmonary disease. 3. Congestive heart failure. 4. History of hypertension. 5. Anemia. RECOMMENDATIONS: None. Thank you. Respectfully, Clovis Espinosa II, M.D. MARLA / PADMINI: [phone] /
[2021-11-11] MEDS: Macitentan [Opsumit] 10 MG Tablet PO SCH (23:45)
[2021-11-12] MEDS: HYDROcodone/APAP 7.5-325MG 1 EACH TAB PO PRN ×3 (02:11→12:13)
[2021-11-12] MEDS: SODIUM CHLORIDE 0.9% 1,000 ML IV SCH ×3 (07:02→16:23)
[2021-11-12] MEDS: FOLIC ACID 1 MG TAB PO SCH (07:03)
[2021-11-12] MEDS: Dextroamphetamine/Amphetamine [Adderall Xr] PO SCH (07:03)
[2021-11-12] MEDS: APIXABAN 5 MG TAB PO SCH ×3 (07:03→22:30)
[2021-11-12] MEDS: GABAPENTIN 300 MG CAP PO SCH ×2 (07:04→16:19)
[2021-11-12] MEDS: LACTATED RINGERS 1,000 ML IV SCH (07:11)
--- NOTE | 2021-11-12 07:39 | P.DS ---
Providers Expected date of discharge: 11/12/21 Attending physician: Bo Martinez Consults: 11/11/21 08:17 Consult Physician Routine Consulting Provider: Clovis Espinosa Consult Reason/Comments: medical management Do you want consulting provider notified?: Yes Primary care physician: Clovis Espinosa - Discharge Diagnosis(es) (1) Primary localized osteoarthritis of left knee Current Visit: Yes Status: Acute (2) Status post total left knee replacement Current Visit: Yes Status: Acute Hospital Course: This is a 75-year-old male who was last seen with complaint of continued left knee pain. The patient has a known history of degenerative arthritis of the left knee and presents to discuss surgical options. After discussion and consideration the patient elects to proceed with total left knee arthroplasty. The patient is seen preoperatively by his primary care physician and cleared for surgery. The patient is admitted to [facility] for total left knee arthroplasty. The procedures performed without complication or sequelae. He is doing well postoperatively. Vital signs are stable at discharge. Labs are stable at discharge. the patient is ambulating well with walker with minimal assistance. The patient is discharged to home on postop day #1 pending medical clearance. Please see orders and refer to the med rec for accurate list of medications.The patient is prescribed Limestone by his PCP. Patient Condition at Discharge: Good Plan - Discharge Summary Discharge Rx Participant: No New Discharge Prescriptions: New Ondansetron Odt [Zofran Odt] 1 tab PO Q8HR PRN #10 tab PRN Reason: Nausea Sennosides [Senokot] 2 tab PO DAILY PRN #60 tablet PRN Reason: Constipation No Action Diclofenac Sodium [Voltaren] 75 mg PO BID PRN PRN Reason: Pain ALPRAZolam [Xanax] 0.5 mg PO QID PRN PRN Reason: Anxiety Multivit-Min/Folic/Vit K/Lycop [Men's Multivitamin Tablet] 1 each PO DAILY Ergocalciferol [Vitamin D2 (1250 Mcg = 90839 Iu)] 1,250 mcg PO Q30D Gabapentin 300 mg PO TID Folic Acid 1 mg PO DAILY HYDROcodone/APAP 10-325MG [Limestone 10-325] 1 tab PO TID PRN PRN Reason: Pain Albuterol Sulfate [Ventolin HFA] 1 - 2 puff INHALATION Q6H PRN PRN Reason: Shortness Of Breath Apixaban [Eliquis] 5 mg PO BID hydroCHLOROthiazide [Hydrodiuril] 25 mg PO DAILY PRN PRN Reason: Edema Spironolactone [Aldactone] 25 mg PO DAILY PRN PRN Reason: swelling Dextroamphetamine/Amphetamine [Adderall Xr] 30 mg PO QAM Macitentan [Opsumit] 10 mg PO HS Losartan [Cozaar] 50 mg PO HS Cyanocobalamin [Vitamin B-12 Injection] 1,000 mcg SQ DIRECTED Sennosides [Senokot] 2 tab PO DAILY PRN #60 tablet PRN Reason: Constipation Discharge Medication List ALPRAZolam [Xanax] 0.5 mg PO QID PRN 12/23/20 [History] Albuterol Sulfate [Ventolin HFA] 1 - 2 puff INHALATION Q6H PRN 12/23/20 [History] Apixaban [Eliquis] 5 mg PO BID 12/23/20 [History] Dextroamphetamine/Amphetamine [Adderall Xr] 30 mg PO QAM 12/23/20 [History] Diclofenac Sodium [Voltaren] 75 mg PO BID PRN 12/23/20 [History] Losartan [Cozaar] 50 mg PO HS 12/23/20 [History] Macitentan [Opsumit] 10 mg PO HS 12/23/20 [History] Multivit-Min/Folic/Vit K/Lycop [Men's Multivitamin Tablet] 1 each PO DAILY 12/23/20 [History] Spironolactone [Aldactone] 25 mg PO DAILY PRN 12/23/20 [History] hydroCHLOROthiazide [Hydrodiuril] 25 mg PO DAILY PRN 12/23/20 [History] Cyanocobalamin [Vitamin B-12 Injection] 1,000 mcg SQ DIRECTED 06/20/21 [History] Ergocalciferol [Vitamin D2 (1250 Mcg = 91715 Iu)] 1,250 mcg PO Q30D 06/20/21 [History] Folic Acid 1 mg PO DAILY 06/20/21 [History] Gabapentin 300 mg PO TID 06/20/21 [History] Sennosides [Senokot] 2 tab PO DAILY PRN #60 tablet 07/22/21 [Rx] HYDROcodone/APAP 10-325MG [Limestone 10-325] 1 tab PO TID PRN 11/05/21 [History] Ondansetron Odt [Zofran Odt] 1 tab PO Q8HR PRN #10 tab 11/11/21 [Rx] Sennosides [Senokot] 2 tab PO DAILY PRN #60 tablet 11/11/21 [Rx] Follow up Appointment(s)/Referral(s): Bo Martinez DO [Doctor of Osteopathic Medicine] - 2 Weeks Activity/Diet/Wound Care/Special Instructions: Weightbearing as tolerated with a walker. CPM 5-6h daily as tolerated. Leave dressing intact. Dressing may be removed by home care nurse or by patient in 7 days. Then change dressing twice daily until follow up. May shower with initial dressing intact and after removal. If dressing become saturated, please remove. Recommend use of compression stockings daily until follow up to help prevent swelling and blood clots. May remove at night before sleeping. Please resume Eliquis. Pain medication per Dr. Espinosa. Please follow up with [facility] and call with any questions or concerns, . Discharge Disposition: HOME WITH HOME HEALTH SERVICES
[2021-11-12 09:31] LABS: Basophils # (A) 0.01 X 10*3/uL (0.00-0.10); Basophils % (A) 0.3 %; Eosinophils # (A) 0 X 10*3/uL (0.04-0.35); Eosinophils % (A) 0 %; HCT 26.2 % (39.6-50.0); Immature Grans, Automated 0.3 %; Lymphocytes # (A) 0.52 X 10*3/uL (0.90-5.00); MCH 25.5 pg (27.0-32.0); MCHC 30.5 g/dL (32.0-37.0); MCV 83.4 fL (80.0-97.0); Monocytes # (A) 0.49 X 10*3/uL (0.20-1.00); Monocytes % (A) 12.3 %; NRBC Per 100 WBC 0 /100 WBCS (0.0-0.0); Neutrophils # (A) 2.97 X 10*3/uL (1.80-7.70); Neutrophils % (A) 74.1 %; Platelet Count 134 X 10*3/uL (140-440); RBC 3.14 X 10*6/uL (4.40-5.60); RDW 16.4 % (11.5-14.5)
--- NOTE | 2021-11-12 09:43 | P.PN ---
Progress Note - Text Progress Note Date: 11/12/21 Patient was seen and evaluated at bedside. Status post postoperative day 1 for left total knee arthroplasty patient had adductor canal catheter for postop pain control. Patient rated pain at rest 5 out of 10 in severity. Patient describes pain is aching, throbbing type on the sides of the knee and back of the knee. Patient started walking with support. With activity patient pain levels are 6- 8 out of 10 in severity. With the help of oral pain medications pain levels are tolerable. Patient denied any weakness/ numbness in lower extremities. patient denied any fever, pain over the catheter site. Physical exam: Patient vital signs stable Patient is alert awake oriented 3 responding to all questions appropriately Examination of the catheter site showed dressing intact, no leaking fluid around the catheter, no redness, no tenderness over the catheter insertion area. plan: status post postoperative day 1 for left total knee arthroplasty with adductor canal catheter for pain control. Patient was discussed to continue the medication at the rate of 8 mL per hour until the pump is completely empty and instructed the patient how to discontinue the catheter.
[2021-11-12] MEDS ORDERED: TAMSULOSIN 0.4 MG CAP.ER.24H PO STA (09:44)
[2021-11-12] MEDS: SENNOSIDES-DOCUSATE SODIUM 1 EACH TAB PO SCH (20:09)
[2021-11-12] MEDS: LOSARTAN 50 MG TAB PO SCH (20:10)
[2021-11-12] MEDS: Macitentan [Opsumit] 10 MG Tablet PO SCH (22:30)
[2021-11-13] MEDS ORDERED: ACETAMINOPHEN TAB 325 MG TAB PO STA (00:38)
[2021-11-13] MEDS: HYDROcodone/APAP 7.5-325MG 1 EACH TAB PO PRN ×4 (02:38→21:12)
[2021-11-13] MEDS ORDERED: ACETAMINOPHEN TAB 325 MG TAB PO PRN (04:28)
[2021-11-13] MEDS ORDERED: SODIUM CHLORIDE 0.9% 500 ML 500 ML IV ONE (04:30)
[2021-11-13] MEDS ORDERED: SODIUM CHLORIDE 0.9% 1,000 ML IV SCH (04:30)
--- NOTE | 2021-11-13 05:08 | XR ---
EXAMINATION TYPE: XR chest 1V portable DATE OF EXAM: 11/13/2021 COMPARISON: NONE HISTORY: None TECHNIQUE: Single view FINDINGS: Heart appears enlarged. There is no heart failure. There is evidence of old left side rib f ractures. Lungs are clear of consolidation. There is no heart failure. There is no sign of pleural ef fusion. IMPRESSION: Cardiomegaly. No evidence of acute lung disease. Old left-sided rib fractures.
[2021-11-13] MEDS ORDERED: TAMSULOSIN 0.4 MG CAP.ER.24H PO STA (05:26)
[2021-11-13] MEDS: GABAPENTIN 300 MG CAP PO SCH ×4 (06:13→21:12)
[2021-11-13 07:22] LABS: ALT 10 U/L (4-49); AST 21 U/L (17-59); African American GFR (CKD) 71 (>60 ml/min/1.73 sqM); Albumin 3.3 g/dL (3.5-5.0); Albumin/Globulin Ratio 1.2; Alkaline Phosphatase 112 U/L (38-126); Anion Gap 8 mmol/L; Blood Urea Nitrogen 28 mg/dL (9-20); Calcium 8.3 mg/dL (8.4-10.2); Carbon Dioxide 21 mmol/L (22-30); Chloride 94 mmol/L (98-107); Globulin 2.7 g/dL; Glucose 91 mg/dL (74-99); Non-African American GFR(CKD) 61 (>60 ml/min/1.73 sqM); Potassium 4.3 mmol/L (3.5-5.1); Sodium 123 mmol/L (137-145); Total Bilirubin 1.2 mg/dL (0.2-1.3)
[2021-11-13] MEDS: APIXABAN 5 MG TAB PO SCH ×3 (07:32→21:12)
[2021-11-13] MEDS: FOLIC ACID 1 MG TAB PO SCH (07:32)
[2021-11-13] MEDS: LACTATED RINGERS 1,000 ML IV SCH (07:34)
[2021-11-13] MEDS: Dextroamphetamine/Amphetamine [Adderall Xr] PO SCH (07:34)
[2021-11-13] MEDS: SODIUM CHLORIDE 0.9% 1,000 ML IV SCH ×2 (07:34→22:00)
[2021-11-13 08:00] LABS: Appearance,Urine Cloudy (Clear); Bilirubin,Urine Negative (Negative); Blood,Urine Large (Negative); Color,Urine Red; Glucose,Urine (UA) Negative (Negative); Ketones,Urine Trace (Negative); Leukocyte Esterase,Urine Large (Negative); Mucus,Urine Rare /hpf; Nitrite,Urine Negative (Negative); PH, Urine 5.5 (5.0-8.0); Protein,Urine 1+ (Negative); RBC,Urine >182 /hpf (0-5); Specific Gravity,Urine 1.019 (1.001-1.035); Squamous Epithelial Cell,Urine 2 /hpf (0-4); Urobilinogen,Urine <2.0 mg/dL (<2.0); WBC,Urine 75 /hpf (0-5)
--- NOTE | 2021-11-13 11:43 | P.PN ---
Subjective Progress Note Date: 11/13/21 This is a 75-year-old male who is status post left total knee arthroplasty. This is postoperative day #2 and patient is seen and evaluated at bedside today. Patient states that he is having a lot of soreness in the left knee, has been able to ambulate. Patient states that he is going for abdominal x-ray later today and has a Chan catheter placed. Objective - Vital Signs Vital signs: Vital Signs Temp 98.7 F 11/13/21 10:52 Pulse 55 L 11/13/21 10:52 Resp 18 11/13/21 10:52 BP 94/64 11/13/21 10:52 Pulse Ox 93 L 11/13/21 10:52 Intake & Output 11/12/21 11/13/21 11/13/21 18:59 06:59 18:59 Output Total 560 250 Balance -560 -250 Output: Urine 560 250 Straight 560 100 Other: Voiding Method Indwelling Catheter Indwelling Catheter - Exam Vital signs are stable. Patient is in no acute distress and is alert and oriented 3. Calf is soft and nontender to palpation. Dressing is clean, dry, and intact. Patient has full foot and ankle motion without pain or difficulty. Sensation intact. Neurovascular status and circulatory status are intact. - Labs CBC & Chem 7: 11/12/21 06:00 11/13/21 06:37 Labs: Abnormal Lab Results - Last 24 Hours (Table) 11/13/21 11/13/21 11/13/21 Range/Units 06:19 06:37 06:37 Sodium 123 L (137-145) mmol/L Chloride 94 L (98-107) mmol/L Carbon Dioxide 21 L (22-30) mmol/L BUN 28 H (9-20) mg/dL Plasma Lactic Acid Terry 0.6 L (0.7-2.0) mmol/L Calcium 8.3 L (8.4-10.2) mg/dL Total Protein 6.0 L (6.3-8.2) g/dL Albumin 3.3 L (3.5-5.0) g/dL Urine Protein 1+ H (Negative) Urine Ketones Trace H (Negative) Urine Blood Large H (Negative) Ur Leukocyte Esterase Large H (Negative) Urine RBC >182 H (0-5) /hpf Urine WBC 75 H (0-5) /hpf Urine WBC Clumps Few H (None) /hpf Urine Mucus Rare H (None) /hpf Microbiology - Last 24 Hours (Table) 11/13/21 06:19 Urine Culture - Preliminary Urine,Catheterized Assessment and Plan (1) Primary localized osteoarthritis of left knee Current Visit: Yes Status: Acute Code(s): M17.12 - UNILATERAL PRIMARY OSTEOARTHRITIS, LEFT KNEE SNOMED Code(s): 436341531943710 (2) Status post total left knee replacement Current Visit: Yes Status: Acute Code(s): Z96.652 - PRESENCE OF LEFT ARTIFICIAL KNEE JOINT SNOMED Code(s): 0510035738288 Plan: #1 Continue with routine postoperative care and pain control, leave dressing in place for seven days. #2 Anticoagulation with Eliquis. #3 Physical therapy and CPM today. #4 Appreciate input from medicine and urology. #5 Anticipate discharge home or to rehab in the next 24-48 hours.
--- NOTE | 2021-11-13 12:40 | XR ---
EXAMINATION TYPE: XR abdomen 2V DATE OF EXAM: 11/13/2021 COMPARISON: NONE HISTORY: Pain TECHNIQUE: One view abdominal series FINDINGS: The osseous structures are intact. The bowel gas pattern is nonspecific. Postsurgical change overlyi ng the heart. Retained fecal debris throughout the colon. Dilated bowel loops in the midabdomen. Danii re arthropathy of the hips greater on the right. IMPRESSION: 1. Correlate for constipation. There are dilated bowel loops in the midabdomen. Localized ileus or pa rtial obstructive pattern not excluded.
--- NOTE | 2021-11-13 14:42 | PN ---
PROGRESS NOTE DATE OF SERVICE: 11/13/2021 CHIEF COMPLAINT: Urinary retention. HISTORY OF PRESENT ILLNESS: This gentleman is having some issues. He has repeatedly had difficulty voiding and has bladder scans measuring 700 to 800 mL of retained urine. Chan catheter was placed and urine was drained, but then he was found to have a full bladder. Catheter has been changed twice. Last night he ran a low-grade temperature. REVIEW OF SYSTEMS: He denies any chills, cough, shortness of breath, chest pain, nausea, vomiting, etc. PHYSICAL EXAMINATION: Chest is clear. Cardiac exam is unremarkable. The abdomen is slightly distended. He is not particularly tender. IMPRESSION: 1. Urinary retention. 2. Abdominal distention. 3. Fever of unknown origin. PLAN: 1. Chest x-ray. 2. Updrafts. 3. Chan catheter change with UA and culture. 4. abdomen. 5. Await urology evaluation. MMODL / IJN: [id number] /
--- NOTE | 2021-11-13 14:46 | PN ---
PROGRESS NOTE DATE OF SERVICE: 11/12/2021 CHIEF COMPLAINT: Status post left knee replacement and urinary retention. HISTORY OF PRESENT ILLNESS: This gentleman could go home, but he is still having trouble voiding. He is on Flomax. He cannot urinate without a Chan. Chan catheter was placed and was apparently draining, but his bladder scan still showed 700 mL in the urinary bladder. PHYSICAL EXAMINATION: He is slightly distended. Chest is clear. Cardiac exam is normal. Knee looks normal with no redness or drainage. IMPRESSION: 1. Urinary retention. 2. Congestive heart failure. 3. Status post left knee replacement. PLAN: Continue with attempted drainage of the bladder. He is referred to Urology. MMODL / IJN: [id number] /
[2021-11-13] MEDS: LOSARTAN 50 MG TAB PO SCH (21:11)
[2021-11-13] MEDS: SENNOSIDES-DOCUSATE SODIUM 1 EACH TAB PO SCH (21:11)
[2021-11-14] MEDS: Macitentan [Opsumit] 10 MG Tablet PO SCH ×2 (03:18→21:33)
[2021-11-14] MEDS: Dextroamphetamine/Amphetamine [Adderall Xr] PO SCH (07:41)
[2021-11-14] MEDS: FOLIC ACID 1 MG TAB PO SCH ×2 (07:56→07:57)
[2021-11-14] MEDS: HYDROcodone/APAP 7.5-325MG 1 EACH TAB PO PRN (07:56)
[2021-11-14] MEDS: SODIUM CHLORIDE 0.9% 1,000 ML IV SCH (07:57)
[2021-11-14] MEDS: APIXABAN 5 MG TAB PO SCH ×3 (07:57→21:33)
[2021-11-14] MEDS: LACTATED RINGERS 1,000 ML IV SCH (07:58)
[2021-11-14] MEDS: GABAPENTIN 300 MG CAP PO SCH ×3 (07:58→21:34)
[2021-11-14 09:02] LABS: Basophils # (A) 0.02 X 10*3/uL (0.00-0.10); Basophils % (A) 0.5 %; Eosinophils # (A) 0.09 X 10*3/uL (0.04-0.35); Eosinophils % (A) 2.4 %; HCT 23.1 % (39.6-50.0); HGB 7.3 g/dL (13.0-17.0); Immature Grans, Automated 0.5 %; Lymphocytes # (A) 0.35 X 10*3/uL (0.90-5.00); Lymphocytes % (A) 9.2 %; MCH 25.8 pg (27.0-32.0); MCHC 31.6 g/dL (32.0-37.0); MCV 81.6 fL (80.0-97.0); Mean Platelet Volume 10.5 fL (9.5-12.2); Monocytes # (A) 0.52 X 10*3/uL (0.20-1.00); Monocytes % (A) 13.6 %; NRBC Per 100 WBC 0 /100 WBCS (0.0-0.0); Neutrophils # (A) 2.81 X 10*3/uL (1.80-7.70); Neutrophils % (A) 73.8 %; Platelet Count 131 X 10*3/uL (140-440); RBC 2.83 X 10*6/uL (4.40-5.60); RDW 16.2 % (11.5-14.5); WBC 3.81 X 10*3/uL (4.50-10.00)
--- NOTE | 2021-11-14 09:28 | P.PN ---
Subjective Progress Note Date: 11/14/21 This is a 75-year-old male who is status post left total knee arthroplasty. This is postoperative day #3 and patient is seen and evaluated at bedside today. Patient states that his pain is well controlled and he has been up and walking. Patient denies any new complaints today. Objective - Vital Signs Vital signs: Vital Signs Temp 98.8 F 11/14/21 08:46 Pulse 70 11/14/21 08:46 Resp 17 11/14/21 08:46 BP 110/60 11/14/21 08:46 Pulse Ox 93 L 11/14/21 08:46 Intake & Output 11/13/21 11/14/21 11/14/21 18:59 06:59 18:59 Output Total 775 Balance -775 Output: Urine 775 Other: Voiding Method Indwelling Catheter Indwelling Catheter Indwelling Catheter - Exam Vital signs are stable. Patient is in no acute distress and is alert and oriented 3. Calf is soft and nontender to palpation. Dressing is clean, dry, and intact. Patient has full foot and ankle motion without pain or difficulty. Sensation intact. Neurovascular status and circulatory status are intact. - Labs CBC & Chem 7: 11/14/21 06:05 11/13/21 06:37 Labs: Abnormal Lab Results - Last 24 Hours (Table) 11/14/21 Range/Units 06:05 WBC 3.81 L (4.50-10.00) X 10*3/uL RBC 2.83 L (4.40-5.60) X 10*6/uL Hgb 7.3 L (13.0-17.0) g/dL Hct 23.1 L (39.6-50.0) % MCH 25.8 L (27.0-32.0) pg MCHC 31.6 L (32.0-37.0) g/dL RDW 16.2 H (11.5-14.5) % Plt Count 131 L (140-440) X 10*3/uL Lymphocytes # 0.35 L (0.90-5.00) X 10*3/uL Microbiology - Last 24 Hours (Table) 11/13/21 06:37 Blood Culture - Preliminary Blood No Growth after 24 hours 11/13/21 06:19 Urine Culture - Preliminary Urine,Catheterized Assessment and Plan (1) Primary localized osteoarthritis of left knee Current Visit: Yes Status: Acute Code(s): M17.12 - UNILATERAL PRIMARY OSTEOARTHRITIS, LEFT KNEE SNOMED Code(s): 295561112616981 (2) Status post total left knee replacement Current Visit: Yes Status: Acute Code(s): Z96.652 - PRESENCE OF LEFT ARTIFICIAL KNEE JOINT SNOMED Code(s): 6804282614675 Plan: #1 Continue with routine postoperative care and pain control, leave dressing in place for seven days. #2 Anticoagulation with Eliquis. #3 Physical therapy and CPM today. #4 Appreciate input from medicine and urology. #5 Anticipate discharge home later today pending urology consult.
[2021-11-14 10:29] LABS: African American GFR (CKD) 75 (>60 ml/min/1.73 sqM); Anion Gap 8 mmol/L; Blood Urea Nitrogen 31 mg/dL (9-20); Calcium 8.1 mg/dL (8.4-10.2); Carbon Dioxide 21 mmol/L (22-30); Chloride 96 mmol/L (98-107); Glucose 85 mg/dL (74-99); Non-African American GFR(CKD) 65 (>60 ml/min/1.73 sqM); Potassium 4.3 mmol/L (3.5-5.1); Sodium 125 mmol/L (137-145)
--- NOTE | 2021-11-14 11:36 | P.PN ---
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 Jerrell Perales at [facility]. Also hypertension. Presents because of left knee severe arthritis or arthritis underwent left knee replacement surgeryon on 11/11. Postoperatively he developed a fever of 100.9., Workup showed possible urinary tract infection with abnormal urine analysis, urine culture is pending, he was started on AcipHex on this morning. Chest x-ray is negative. Also patient did not have bowel movement he has some abdominal distention but no abdominal pain or vomiting. X-ray showing possible ileus versus bowel obstruction. He had his breakfast this morning. Patient also has a Chan catheter placed on admission. He has urinary retention off about 700 mL Denies other symptoms like no chest pain or dyspnea or coughing. No rash. WBC increased from baseline of 2-2.3 up to 4 and 3.8 today. Also hemoglobin dropped down to 7.3 today. It was 8.0 on admission and baseline 9-10. Objective - Vital Signs Vital signs: Vital Signs Temp 98.8 F 11/14/21 08:46 Pulse 70 11/14/21 08:46 Resp 17 11/14/21 08:46 BP 110/60 11/14/21 08:46 Pulse Ox 93 L 11/14/21 08:46 Intake & Output 11/13/21 11/14/21 11/14/21 18:59 06:59 18:59 Output Total 775 Balance -775 Output: Urine 775 Other: Voiding Method Indwelling Catheter Indwelling Catheter Indwelling Catheter - Exam GENERAL: The patient is alert and oriented x3, not in any acute distress. Well developed, well nourished. HEENT: Pupils are round and equally reacting to light. EOMI. No scleral icterus. No conjunctival pallor. Normocephalic, atraumatic. No pharyngeal erythema. No th yromegaly. CARDIOVASCULAR: S1 and S2 present. No murmurs, rubs, or gallops. PULMONARY: Chest is clear to auscultation, no wheezing or crackles. -ABDOMEN: Soft, nontender, distended, normoactive bowel sounds. No palpable organomegaly. Chan catheter is in place MUSCULOSKELETAL: No joint swelling or deformity. -EXTREMITIES: No cyanosis, clubbing, or pedal edema. Left knee surgical wound with a dressing in place, left leg is swollen with no evidence of a bruise or discoloration. Pulses intact NEUROLOGICAL: Gross neurological examination did not reveal any focal deficits. SKIN: No rashes. no petechiae. - Labs CBC & Chem 7: 11/14/21 06:05 11/14/21 06:05 Labs: Abnormal Lab Results - Last 24 Hours (Table) 11/14/21 11/14/21 Range/Units 06:05 06:05 WBC 3.81 L (4.50-10.00) X 10*3/uL RBC 2.83 L (4.40-5.60) X 10*6/uL Hgb 7.3 L (13.0-17.0) g/dL Hct 23.1 L (39.6-50.0) % MCH 25.8 L (27.0-32.0) pg MCHC 31.6 L (32.0-37.0) g/dL RDW 16.2 H (11.5-14.5) % Plt Count 131 L (140-440) X 10*3/uL Lymphocytes # 0.35 L (0.90-5.00) X 10*3/uL Sodium 125 L (137-145) mmol/L Chloride 96 L (98-107) mmol/L Carbon Dioxide 21 L (22-30) mmol/L BUN 31 H (9-20) mg/dL Calcium 8.1 L (8.4-10.2) mg/dL Microbiology - Last 24 Hours (Table) 11/13/21 06:37 Blood Culture - Preliminary Blood No Growth after 24 hours 11/13/21 06:19 Urine Culture - Preliminary Urine,Catheterized Assessment and Plan Assessment: Possible acute urinary tract infection Mild sepsis with fever and mild relative leukocytosis Acute blood loss anemia, most likely secondary to surgery, rule out other causes of bleeding since patient is on Eliquis Severe osteoarthritis of the left knee status post left knee arthroplasty on 11/11 Mild pancytopenia Chronic atrial fibrillation on Eliquis Hypertension Plan: This is a pleasant 75 years old male who presents for total left knee arthroplasty, found to have UTI and possible bowel obstruction Continue with ceftriaxone follow-up urine culture Continue with Chan catheter, urologist on the case. Consult surgery team for possible bowel obstruction, keep patient nothing by mouth since then Start IV fluids D5 normal saline at 50 mL/h. Pain management Labs and medication were reviewed.. Continue same treatment. Continue with symptomatic treatment. Resume home medication. Monitor lytes and vitals. DVT and GI prophylaxis. Further recommendationsas per clinical course of the patient DVT prophylaxis: On Eliquis GI Prophylaxis: Pepcid PT/OT: Pending Prognosis is guarded
[2021-11-14] MEDS ORDERED: LIDOCAINE URO-JET JELLY 2% 5 ML KIT URETHRAL ONE (11:39)
[2021-11-14] MEDS ORDERED: LIDOCAINE 2% SYG (PF) 100 MG/5 ML MISCELLANE ONE (11:44)
[2021-11-14] MEDS: HYDROmorphone 0.5 MG/0.5 ML SYRINGE IVP PRN (11:57)
[2021-11-14] MEDS: FAMOTIDINE 20 MG/2 ML VIAL IV SCH ×2 (11:58→21:34)
[2021-11-14] MEDS: DEXTROSE 5%-0.9% NACL 1,000 ML IV SCH (11:58)
[2021-11-14 15:04] LABS: % Iron Saturation 6.43 (15.00-50.00)
[2021-11-14] MEDS: HYDROcodone/APAP 10-325MG 1 EACH TAB PO PRN (17:36)
[2021-11-14] MEDS: SENNOSIDES-DOCUSATE SODIUM 1 EACH TAB PO SCH (21:33)
[2021-11-14] MEDS: LOSARTAN 50 MG TAB PO SCH (21:34)
[2021-11-15] MEDS: HYDROcodone/APAP 7.5-325MG 1 EACH TAB PO PRN ×3 (00:46→22:08)
[2021-11-15] MEDS: Dextroamphetamine/Amphetamine [Adderall Xr] PO SCH (06:47)
[2021-11-15] MEDS: APIXABAN 5 MG TAB PO SCH ×2 (06:56→22:00)
[2021-11-15] MEDS: GABAPENTIN 300 MG CAP PO SCH ×3 (06:57→22:00)
[2021-11-15] MEDS: DEXTROSE 5%-0.9% NACL 1,000 ML IV SCH (09:23)
[2021-11-15] MEDS: FAMOTIDINE 20 MG/2 ML VIAL IV SCH ×2 (09:23→22:00)
[2021-11-15 09:27] LABS: African American GFR (CKD) 97.2 (60.0-200.0); Anion Gap 10.9 mmol/L (10.00-18.00); Calcium 8.5 mg/dL (8.7-10.3); Carbon Dioxide 21.1 mmol/L (20.0-27.5); Magnesium 2.1 mg/dL (1.5-2.4); Non-African American GFR(CKD) 83.8 (60.0-200.0); Potassium 4.2 mmol/L (3.5-5.5)
[2021-11-15 09:58] LABS: Basophils # (A) 0.02 X 10*3/uL (0.00-0.10); Basophils % (A) 0.5 %; Eosinophils # (A) 0.09 X 10*3/uL (0.04-0.35); Eosinophils % (A) 2.4 %; HCT 24.1 % (39.6-50.0); HGB 7.5 g/dL (13.0-17.0); Immature Grans, Automated 0.3 %; Lymphocytes # (A) 0.28 X 10*3/uL (0.90-5.00); Lymphocytes % (A) 7.5 %; MCH 25.9 pg (27.0-32.0); MCHC 31.1 g/dL (32.0-37.0); MCV 83.1 fL (80.0-97.0); Mean Platelet Volume 10.2 fL (9.5-12.2); Monocytes # (A) 0.47 X 10*3/uL (0.20-1.00); Monocytes % (A) 12.5 %; NRBC Per 100 WBC 0 /100 WBCS (0.0-0.0); Neutrophils # (A) 2.88 X 10*3/uL (1.80-7.70); Neutrophils % (A) 76.8 %; Platelet Count 158 X 10*3/uL (140-440); RDW 16.2 % (11.5-14.5); WBC 3.75 X 10*3/uL (4.50-10.00)
--- NOTE | 2021-11-15 10:49 | P.PN ---
Progress Note - Text Progress Note Date: 11/15/21 The patient denies any bladder pain. The Chan catheter has drained well overnight. The urine is faintly blood-tinged. He is afebrile. Urine and blood cultures are negative. I would suggest that the catheter be removed prior to discharge for a voiding trial. Post-void residuals should be checked to assess bladder emptying. I have prescribed tamsulosin to increase his ability to void.
--- NOTE | 2021-11-15 10:50 | P.GSCN ---
History of Present Illness Consult date: 11/14/21 Reason for Consult: Urinary retention Requesting physician: Clovis Espinosa History of present illness: The patient is a 75-year-old white male who underwent a left total knee arthroplasty on 11/11/2021. Although he has an unremarkable urologic history, he developed postoperative urinary retention and currently has an indwelling Chan catheter in place. It appears that the catheter was inserted on November 12 or November 13, with return of 700-800 mL of urine. Apparently after the Chan catheter was inserted bladder scan still showed 700 mL of urine in the bladder. He denies any prior history of UTIs or urolithiasis. 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 Baseline voiding symptoms are as follows: Nocturia 1, no dysuria, no hematuria, no daytime urinary frequency, and no straining. He describes his urinary stream is being "pretty good". Review of Systems - Constitutional Denies chills, Denies fever - Genitourinary Reports as per HPI Past Medical History Past Medical History: Atrial Flutter, GERD/Reflux, Hypertension, Respiratory Disorder Additional Past Medical History / Comment(s): PULMONARY HTN. ANEMIA History of Any Multi-Drug Resistant Organisms: None Reported Past Surgical History: Heart Catheterization, Tonsillectomy Additional Past Surgical History / Comment(s): COLONOSCOPY Past Anesthesia/Blood Transfusion Reactions: No Reported Reaction Additional Past Anesthesia/Blood Transfusion Reaction / Comm: WAS SLOW TO COME OUT OF ANESTHESIA ONCE Past Psychological History: ADD/ADHD Smoking Status: Never smoker Past Alcohol Use History: Occasional Past Drug Use History: None Reported - Past Family History Mother Family Medical History: No Reported History Medications and Allergies Home Medications Medication Instructions Recorded Confirmed Type ALPRAZolam [Xanax] 0.5 mg PO QID PRN 12/23/20 11/11/21 History Albuterol Sulfate [Ventolin HFA] 1 - 2 puff INHALATION Q6H PRN 12/23/20 11/11/21 History Apixaban [Eliquis] 5 mg PO BID 12/23/20 11/11/21 History Dextroamphetamine/Amphetamine 30 mg PO QAM 12/23/20 11/11/21 History [Adderall Xr] Diclofenac Sodium [Voltaren] 75 mg PO BID PRN 12/23/20 11/11/21 History Losartan [Cozaar] 50 mg PO HS 12/23/20 11/11/21 History Macitentan [Opsumit] 10 mg PO HS 12/23/20 11/11/21 History Multivit-Min/Folic/Vit K/Lycop 1 each PO DAILY 12/23/20 11/11/21 History [Men's Multivitamin Tablet] Spironolactone [Aldactone] 25 mg PO DAILY PRN 12/23/20 11/11/21 History hydroCHLOROthiazide [Hydrodiuril] 25 mg PO DAILY PRN 12/23/20 11/11/21 History Cyanocobalamin [Vitamin B-12 1,000 mcg SQ DIRECTED 06/20/21 11/11/21 History Injection] Ergocalciferol [Vitamin D2 (1250 1,250 mcg PO Q30D 06/20/21 11/11/21 History Mcg = 95549 Iu)] Folic Acid 1 mg PO DAILY 06/20/21 11/11/21 History Gabapentin 300 mg PO TID 06/20/21 11/11/21 History Sennosides [Senokot] 2 tab PO DAILY PRN #60 tablet 07/22/21 11/11/21 Rx HYDROcodone/APAP 10-325MG [[place] 1 tab PO TID PRN 11/05/21 11/11/21 History 10-325] Ondansetron Odt [Zofran Odt] 1 tab PO Q8HR PRN #10 tab 11/11/21 Rx Sennosides [Senokot] 2 tab PO DAILY PRN #60 tablet 11/11/21 Rx HYDROcodone/APAP 7.5-325MG [[place] 1 - 2 tab PO Q6H PRN #32 tab 11/13/21 Rx 7.5-325] Allergies Allergy/AdvReac Type Severity Reaction Status Date / Time No Known Allergies Allergy Verified 11/11/21 08:02 Surgical - Exam Vital Signs Temp Pulse Resp BP Pulse Ox 98.0 F 46 L 18 125/59 96 11/11/21 08:08 11/11/21 08:08 11/11/21 08:08 11/11/21 08:08 11/11/21 08:08 - General well developed, well nourished, no distress - Respiratory normal respiratory effort - Abdomen Abdomen: soft, non tender, no guarding, no rigid, no rebound - Genitourinary Normal phallus, normal urethral meatus. The scrotum and left ST are palpably normal. 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 - Rectum Rectum: normal sphincter tone, no masses, other (Prostate approximately 30 g in size, 6-8 mm nodule just to the left of midline.) Results - Labs 11/15/21 05:51 11/15/21 05:51 Abnormal Lab Results - Last 24 Hours (Table) 11/14/21 11/14/21 Range/Units 06:05 06:05 WBC 3.81 L (4.50-10.00) X 10*3/uL RBC 2.83 L (4.40-5.60) X 10*6/uL Hgb 7.3 L (13.0-17.0) g/dL Hct 23.1 L (39.6-50.0) % MCH 25.8 L (27.0-32.0) pg MCHC 31.6 L (32.0-37.0) g/dL RDW 16.2 H (11.5-14.5) % Plt Count 131 L (140-440) X 10*3/uL Lymphocytes # 0.35 L (0.90-5.00) X 10*3/uL Sodium 125 L (137-145) mmol/L Chloride 96 L (98-107) mmol/L Carbon Dioxide 21 L (22-30) mmol/L BUN 31 H (9-20) mg/dL Calcium 8.1 L (8.4-10.2) mg/dL Microbiology - Last 24 Hours (Table) 11/13/21 06:37 Blood Culture - Preliminary Blood No Growth after 24 hours 11/13/21 06:19 Urine Culture - Preliminary Urine,Catheterized Diabetes panel 11/14/21 Range/Units 06:05 Sodium 125 L (137-145) mmol/L Potassium 4.3 (3.5-5.1) mmol/L Chloride 96 L (98-107) mmol/L Carbon Dioxide 21 L (22-30) mmol/L BUN 31 H (9-20) mg/dL Creatinine 1.11 (0.66-1.25) mg/dL Glucose 85 (74-99) mg/dL Calcium 8.1 L (8.4-10.2) mg/dL Calcium panel 11/14/21 Range/Units 06:05 Calcium 8.1 L (8.4-10.2) mg/dL Pituitary panel 11/14/21 Range/Units 06:05 Sodium 125 L (137-145) mmol/L Potassium 4.3 (3.5-5.1) mmol/L Chloride 96 L (98-107) mmol/L Carbon Dioxide 21 L (22-30) mmol/L BUN 31 H (9-20) mg/dL Creatinine 1.11 (0.66-1.25) mg/dL Glucose 85 (74-99) mg/dL Calcium 8.1 L (8.4-10.2) mg/dL Adrenal panel 11/14/21 Range/Units 06:05 Sodium 125 L (137-145) mmol/L Potassium 4.3 (3.5-5.1) mmol/L Chloride 96 L (98-107) mmol/L Carbon Dioxide 21 L (22-30) mmol/L BUN 31 H (9-20) mg/dL Creatinine 1.11 (0.66-1.25) mg/dL Glucose 85 (74-99) mg/dL Calcium 8.1 L (8.4-10.2) mg/dL Assessment and Plan (1) Retention of urine, unspecified Current Visit: Yes Status: Acute Code(s): R33.9 - RETENTION OF URINE, UNSPECIFIED SNOMED Code(s): 165070517 (2) Prostate nodule Current Visit: Yes Status: Acute Code(s): N40.2 - NODULAR PROSTATE WITHOUT LOWER URINARY TRACT SYMPTOMS SNOMED Code(s): 372457971488335 Plan: I explained to Mr. Pope that the presence of a prostate nodule could represent occult prostate cancer, and the prostate biopsies would be required in order to determine whether or not he has prostate cancer. I do not have any PSA records available to me at this time. Unfortunately, prostate biopsies will need to be deferred because of the risk of bacterial seeding of his knee implants. I irrigated the Chan catheter. I was able to instill fluid without resistance, but could not aspirate return. Therefore, under sterile conditions, 2% lidocaine gel was instilled per urethra. A 16-[place] coud-tip Chan catheter was then inserted. I was able to irrigate the catheter to confirm appropriate placement. Time with Patient: Greater than 30
--- NOTE | 2021-11-15 11:25 | P.GSCN ---
History of Present Illness Consult date: 11/14/21 History of present illness: This is a 75-year-old male who recently underwent left knee replacement. He has been experiencing both urinary retention and constipation since his surgery. He has significant stool burden seen on x-ray. He has not had a bowel movement sin ce Wednesday. He denies any nausea vomiting at this time. He denies any past intra-abdominal surgical intervention Past Medical History Past Medical History: Atrial Flutter, GERD/Reflux, Hypertension, Respiratory Disorder Additional Past Medical History / Comment(s): PULMONARY HTN. ANEMIA History of Any Multi-Drug Resistant Organisms: None Reported Past Surgical History: Heart Catheterization, Tonsillectomy Additional Past Surgical History / Comment(s): COLONOSCOPY Past Anesthesia/Blood Transfusion Reactions: No Reported Reaction Additional Past Anesthesia/Blood Transfusion Reaction / Comm: WAS SLOW TO COME OUT OF ANESTHESIA ONCE Past Psychological History: ADD/ADHD Smoking Status: Never smoker Past Alcohol Use History: Occasional Past Drug Use History: None Reported - Past Family History Mother Family Medical History: No Reported History Medications and Allergies Home Medications Medication Instructions Recorded Confirmed Type ALPRAZolam [Xanax] 0.5 mg PO QID PRN 12/23/20 11/11/21 History Albuterol Sulfate [Ventolin HFA] 1 - 2 puff INHALATION Q6H PRN 12/23/20 11/11/21 History Apixaban [Eliquis] 5 mg PO BID 12/23/20 11/11/21 History Dextroamphetamine/Amphetamine 30 mg PO QAM 12/23/20 11/11/21 History [Adderall Xr] Diclofenac Sodium [Voltaren] 75 mg PO BID PRN 12/23/20 11/11/21 History Losartan [Cozaar] 50 mg PO HS 12/23/20 11/11/21 History Macitentan [Opsumit] 10 mg PO HS 12/23/20 11/11/21 History Multivit-Min/Folic/Vit K/Lycop 1 each PO DAILY 12/23/20 11/11/21 History [Men's Multivitamin Tablet] Spironolactone [Aldactone] 25 mg PO DAILY PRN 12/23/20 11/11/21 History hydroCHLOROthiazide [Hydrodiuril] 25 mg PO DAILY PRN 12/23/20 11/11/21 History Cyanocobalamin [Vitamin B-12 1,000 mcg SQ DIRECTED 06/20/21 11/11/21 History Injection] Ergocalciferol [Vitamin D2 (1250 1,250 mcg PO Q30D 06/20/21 11/11/21 History Mcg = 05072 Iu)] Folic Acid 1 mg PO DAILY 06/20/21 11/11/21 History Gabapentin 300 mg PO TID 06/20/21 11/11/21 History Sennosides [Senokot] 2 tab PO DAILY PRN #60 tablet 07/22/21 11/11/21 Rx HYDROcodone/APAP 10-325MG [[place] 1 tab PO TID PRN 11/05/21 11/11/21 History 10-325] Ondansetron Odt [Zofran Odt] 1 tab PO Q8HR PRN #10 tab 11/11/21 Rx Sennosides [Senokot] 2 tab PO DAILY PRN #60 tablet 11/11/21 Rx HYDROcodone/APAP 7.5-325MG [[place] 1 - 2 tab PO Q6H PRN #32 tab 11/13/21 Rx 7.5-325] Allergies Allergy/AdvReac Type Severity Reaction Status Date / Time No Known Allergies Allergy Verified 11/11/21 08:02 Surgical - Exam Osteopathic Statement: *. No significant issues noted on an osteopathic structural exam other than those noted in the History and Physical/Consult. Vital Signs Temp Pulse Resp BP Pulse Ox 98.0 F 46 L 18 125/59 96 11/11/21 08:08 11/11/21 08:08 11/11/21 08:08 11/11/21 08:08 11/11/21 08:08 - General well developed, well nourished, no distress - Respiratory normal expansion - Cardiovascular Rhythm: regular - Abdomen Abdomen: soft, non tender - Neurologic normal coordination, normal sensation Results - Labs 11/15/21 05:51 11/15/21 05:51 Abnormal Lab Results - Last 24 Hours (Table) 11/14/21 11/15/21 11/15/21 Range/Units 06:05 05:51 05:51 WBC 3.75 L (4.50-10.00) X 10*3/uL RBC 2.90 L (4.40-5.60) X 10*6/uL Hgb 7.5 L (13.0-17.0) g/dL Hct 24.1 L (39.6-50.0) % MCH 25.9 L (27.0-32.0) pg MCHC 31.1 L (32.0-37.0) g/dL RDW 16.2 H (11.5-14.5) % Lymphocytes # 0.28 L (0.90-5.00) X 10*3/uL Sodium 128 L (135-145) mmol/L BUN/Creatinine Ratio 30.00 H (12.00-20.00) Ratio Calcium 8.5 L (8.7-10.3) mg/dL Iron 14 L (65-175) ug/dL TIBC 211 L (228-460) ug/dL % Saturation 6.43 L (15.00-50.00) Transferrin 151.0 L (204.0-354.0) mg/dL Microbiology - Last 24 Hours (Table) 11/13/21 06:37 Blood Culture - Preliminary Blood No Growth after 48 hours 11/13/21 06:19 Urine Culture - Final Urine,Catheterized Diabetes panel 11/15/21 Range/Units 05:51 Sodium 128 L (135-145) mmol/L Potassium 4.2 (3.5-5.5) mmol/L Chloride 96 (96-109) mmol/L Carbon Dioxide 21.1 (20.0-27.5) mmol/L BUN 27.0 (9.0-27.0) mg/dL Creatinine 0.9 (0.6-1.5) mg/dL Glucose 97 (70-110) mg/dL Calcium 8.5 L (8.7-10.3) mg/dL Calcium panel 11/15/21 Range/Units 05:51 Calcium 8.5 L (8.7-10.3) mg/dL Pituitary panel 11/15/21 Range/Units 05:51 Sodium 128 L (135-145) mmol/L Potassium 4.2 (3.5-5.5) mmol/L Chloride 96 (96-109) mmol/L Carbon Dioxide 21.1 (20.0-27.5) mmol/L BUN 27.0 (9.0-27.0) mg/dL Creatinine 0.9 (0.6-1.5) mg/dL Glucose 97 (70-110) mg/dL Calcium 8.5 L (8.7-10.3) mg/dL Adrenal panel 11/15/21 Range/Units 05:51 Sodium 128 L (135-145) mmol/L Potassium 4.2 (3.5-5.5) mmol/L Chloride 96 (96-109) mmol/L Carbon Dioxide 21.1 (20.0-27.5) mmol/L BUN 27.0 (9.0-27.0) mg/dL Creatinine 0.9 (0.6-1.5) mg/dL Glucose 97 (70-110) mg/dL Calcium 8.5 L (8.7-10.3) mg/dL Assessment and Plan Assessment: Constipation and/or ileus status post orthopedic surgery Plan: Recommend continuing bowel regimen milk of magnesia as needed suppositories and enema. Patient does have significant stool burden seen on x-ray. He clear liquid diet as tolerated. No plans for acute surgical intervention at this time
--- NOTE | 2021-11-15 11:44 | P.PN ---
Subjective Progress Note Date: 11/15/21 Principal diagnosis: Left TKA Patient is seen at bedside this morning. He is postop from left total knee arthroplasty on 11/11/21. He has pain at the surgical site as expected but denies any new complaints. Medicine is following and surgery has been consulted for possible bowel obstruction. he has been passing gas. He denies abdominal pain. He denies numbness, tingling or calf pain. Review of systems is negative for fever, chills, chest pain, shortness of breath or other Objective - Vital Signs Vital signs: Vital Signs Temp 98.3 F 11/15/21 08:00 Pulse 68 11/15/21 08:00 Resp 16 11/15/21 08:00 BP 128/65 11/15/21 08:00 Pulse Ox 94 L 11/15/21 08:00 Intake & Output 11/14/21 11/15/21 11/15/21 18:59 06:59 18:59 Intake Total 0 Output Total 700 400 Balance -700 -400 Intake: Oral 0 Output: Urine 700 400 Other: Voiding Method Indwelling Catheter Indwelling Catheter Indwelling Catheter # Voids 1 - Exam Inspection reveals a benign surgical wound. There is no active bleeding or drainage. Neurovascular status is intact throughout the lower extremity with motor and sensation fully intact. Calf is soft and nontender. 2+ dorsalis pedis pulse and less than 2 second cap refill is present. - Constitutional General appearance: Present: no acute distress - Labs CBC & Chem 7: 11/15/21 05:51 11/15/21 05:51 Labs: Abnormal Lab Results - Last 24 Hours (Table) 11/14/21 11/15/21 11/15/21 Range/Units 06:05 05:51 05:51 WBC 3.75 L (4.50-10.00) X 10*3/uL RBC 2.90 L (4.40-5.60) X 10*6/uL Hgb 7.5 L (13.0-17.0) g/dL Hct 24.1 L (39.6-50.0) % MCH 25.9 L (27.0-32.0) pg MCHC 31.1 L (32.0-37.0) g/dL RDW 16.2 H (11.5-14.5) % Lymphocytes # 0.28 L (0.90-5.00) X 10*3/uL Sodium 128 L (135-145) mmol/L BUN/Creatinine Ratio 30.00 H (12.00-20.00) Ratio Calcium 8.5 L (8.7-10.3) mg/dL Iron 14 L (65-175) ug/dL TIBC 211 L (228-460) ug/dL % Saturation 6.43 L (15.00-50.00) Transferrin 151.0 L (204.0-354.0) mg/dL Microbiology - Last 24 Hours (Table) 11/13/21 06:37 Blood Culture - Preliminary Blood No Growth after 48 hours 11/13/21 06:19 Urine Culture - Final Urine,Catheterized Assessment and Plan (1) Primary localized osteoarthritis of left knee Narrative/Plan: He will continue with routine postop orthopedic protocol including pain management, wound care, PT, DVT prophylaxis and medical management. He may be discharged when okay with IM and general surgery. Current Visit: Yes Status: Acute Code(s): M17.12 - UNILATERAL PRIMARY OSTEOARTHRITIS, LEFT KNEE SNOMED Code(s): 017679596586616 Time with Patient: Less than 30
[2021-11-15] MEDS ORDERED: LACTULOSE 20 GM/30 ML CUP PO ONE (21:06)
--- NOTE | 2021-11-15 21:08 | P.PN ---
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 Jerrell Perales at [facility]. Also hypertension. Presents because of left knee severe arthritis or arthritis underwent left knee replacement surgeryon on 11/11. Postoperatively he developed a fever of 100.9., Workup showed possible urinary tract infection with abnormal urine analysis, urine culture is pending, he was started on AcipHex on this morning. Chest x-ray is negative. Also patient did not have bowel movement he has some abdominal distention but no abdominal pain or vomiting. X-ray showing possible ileus versus bowel obstruction. He had his breakfast this morning. Patient also has a Chan catheter placed on admission. He has urinary retention off about 700 mL Denies other symptoms like no chest pain or dyspnea or coughing. No rash. WBC increased from baseline of 2-2.3 up to 4 and 3.8 today. Also hemoglobin dropped down to 7.3 today. It was 8.0 on admission and baseline 9-10. 11/15/2021 Patient awake and alert with no abdominal pain, he is tolerating liquid diet, he does not have bowel movement gait, he states that usually he has one bowel movement every 2 days at his baseline and last bowel movement was prior to admission to the hospital. He did not have bowel movement since then, he is passing gases. Surgery team on the case and recommended laxatives and enemas. We will give 1 dose of lactulose he is currently on Senokot. Urologist recommend to discontinue Chan catheter prior to discharge and check a PVR, Flomax is started. His urine culture came back negative, his ceftriaxone dose lowered from 2 g down to 1 g, we will check forcalcitonin and discussed with urology and if negative test results then may consider discontinuing antibiotic while monitoring. Hyponatremia is improving. He has anemia of chronic disease per workup, probably complicated by some blood loss during surgery., Hemoglobin is stable at 7.5. Mild leukopenia and platelet is normal. Sodium 128. He remains on home dose of Eliquis 5 mg and D5 normal saline at 50 mL/h. Objective - Vital Signs Vital signs: Vital Signs Temp 98.3 F 11/15/21 08:00 Pulse 68 11/15/21 08:00 Resp 16 11/15/21 08:00 BP 128/65 11/15/21 08:00 Pulse Ox 94 L 11/15/21 08:00 Intake & Output 11/14/21 11/15/21 11/15/21 18:59 06:59 18:59 Intake Total 0 Output Total 700 400 Balance -700 -400 Intake: Oral 0 Output: Urine 700 400 Other: Voiding Method Indwelling Catheter Indwelling Catheter Indwelling Catheter # Voids 1 - Exam GENERAL: The patient is alert and oriented x3, not in any acute distress. Well developed, well nourished. HEENT: Pupils are round and equally reacting to light. EOMI. No scleral icterus. No conjunctival pallor. Normocephalic, atraumatic. No pharyngeal erythema. No thyromegaly. CARDIOVASCULAR: S1 and S2 present. No murmurs, rubs, or gallops. PULMONARY: Chest is clear to auscultation, no wheezing or crackles. -ABDOMEN: Soft, nontender, distended, normoactive bowel sounds. No palpable organomegaly. Chan catheter is in place MUSCULOSKELETAL: No joint swelling or deformity. -EXTREMITIES: No cyanosis, clubbing, or pedal edema. Left knee surgical wound with a dressing in place, left leg is swollen with no evidence of a bruise or discoloration. Pulses intact NEUROLOGICAL: Gross neurological examination did not reveal any focal deficits. SKIN: No rashes. no petechiae. - Labs CBC & Chem 7: 11/15/21 05:51 11/15/21 05:51 Labs: Abnormal Lab Results - Last 24 Hours (Table) 11/14/21 11/15/21 11/15/21 Range/Units 06:05 05:51 05:51 WBC 3.75 L (4.50-10.00) X 10*3/uL RBC 2.90 L (4.40-5.60) X 10*6/uL Hgb 7.5 L (13.0-17.0) g/dL Hct 24.1 L (39.6-50.0) % MCH 25.9 L (27.0-32.0) pg MCHC 31.1 L (32.0-37.0) g/dL RDW 16.2 H (11.5-14.5) % Lymphocytes # 0.28 L (0.90-5.00) X 10*3/uL Sodium 128 L (135-145) mmol/L BUN/Creatinine Ratio 30.00 H (12.00-20.00) Ratio Calcium 8.5 L (8.7-10.3) mg/dL Iron 14 L (65-175) ug/dL TIBC 211 L (228-460) ug/dL % Saturation 6.43 L (15.00-50.00) Transferrin 151.0 L (204.0-354.0) mg/dL Microbiology - Last 24 Hours (Table) 11/13/21 06:37 Blood Culture - Preliminary Blood No Growth after 48 hours 11/13/21 06:19 Urine Culture - Final Urine,Catheterized Assessment and Plan Assessment: Possible acute urinary tract infection Mild sepsis with fever and mild relative leukocytosis Acute blood loss anemia, most likely secondary to surgery, rule out other causes of bleeding since patient is on Eliquis Severe osteoarthritis of the left knee status post left knee arthroplasty on 11/11 Mild pancytopenia Chronic atrial fibrillation on Eliquis Hypertension Plan: This is a pleasant 75 years old male who presents for total left knee arthroplasty, found to have UTI and possible bowel obstruction Continue with ceftriaxone follow-up urine culture Continue with Chan catheter, urologist on the case. Consult surgery team for possible bowel obstruction, keep patient nothing by mouth since then Start IV fluids D5 normal saline at 50 mL/h. Pain management Labs and medication were reviewed.. Continue same treatment. Continue with symptomatic treatment. Resume home medication. Monitor lytes and vitals. DVT and GI prophylaxis. Further recommendationsas per clinical course of the patient DVT prophylaxis: On Eliquis GI Prophylaxis: Pepcid PT/OT: Pending Prognosis is guarded
[2021-11-15] MEDS: SENNOSIDES-DOCUSATE SODIUM 1 EACH TAB PO SCH (22:00)
[2021-11-15] MEDS: LOSARTAN 50 MG TAB PO SCH (22:00)
[2021-11-15] MEDS: Macitentan [Opsumit] 10 MG Tablet PO SCH (22:02)
[2021-11-16] MEDS: DEXTROSE 5%-0.9% NACL 1,000 ML IV SCH (07:34)
[2021-11-16] MEDS: Dextroamphetamine/Amphetamine [Adderall Xr] PO SCH (09:04)
[2021-11-16] MEDS: GABAPENTIN 300 MG CAP PO SCH ×3 (09:09→21:14)
[2021-11-16] MEDS: FOLIC ACID 1 MG TAB PO SCH (09:09)
[2021-11-16] MEDS: APIXABAN 5 MG TAB PO SCH ×2 (09:09→21:13)
[2021-11-16] MEDS: HYDROcodone/APAP 10-325MG 1 EACH TAB PO PRN ×2 (09:14→17:19)
[2021-11-16] MEDS: FAMOTIDINE 20 MG/2 ML VIAL IV SCH ×2 (09:46→21:14)
[2021-11-16 11:56] LABS: Basophils # (A) 0.02 X 10*3/uL (0.00-0.10); Basophils % (A) 0.6 %; Eosinophils # (A) 0.18 X 10*3/uL (0.04-0.35); HCT 23.9 % (39.6-50.0); HGB 7.3 g/dL (13.0-17.0); Immature Grans, Automated 0.3 %; Lymphocytes # (A) 0.46 X 10*3/uL (0.90-5.00); Lymphocytes % (A) 12.9 %; MCH 25.4 pg (27.0-32.0); MCHC 30.5 g/dL (32.0-37.0); MCV 83.3 fL (80.0-97.0); Mean Platelet Volume 10.3 fL (9.5-12.2); Monocytes # (A) 0.56 X 10*3/uL (0.20-1.00); Monocytes % (A) 15.7 %; NRBC Per 100 WBC 0 /100 WBCS (0.0-0.0); Neutrophils # (A) 2.34 X 10*3/uL (1.80-7.70); Neutrophils % (A) 65.5 %; Platelet Count 190 X 10*3/uL (140-440); RBC 2.87 X 10*6/uL (4.40-5.60); RDW 16.2 % (11.5-14.5); WBC 3.57 X 10*3/uL (4.50-10.00)
--- NOTE | 2021-11-16 11:56 | P.PN ---
Subjective Progress Note Date: 11/16/21 Principal diagnosis: Left TKA Patient is seen at bedside this morning. He is postop from left total knee arthroplasty on 11/11/21. His pain at the surgical site is improving. He denies new complaints. He has had a bowel movement. He denies abdominal pain. He denies numbness, tingling or calf pain. Review of systems is negative for fever, chills, chest pain, shortness of breath or other Objective - Vital Signs Vital signs: Vital Signs Temp 97.8 F 11/16/21 08:00 Pulse 62 11/16/21 08:00 Resp 14 11/16/21 08:00 BP 123/68 11/16/21 08:00 Pulse Ox 93 L 11/16/21 08:00 Intake & Output 11/15/21 11/16/21 11/16/21 18:59 06:59 18:59 Output Total 1200 Balance -1200 Output: Urine 1200 Other: Voiding Method Indwelling Catheter Indwelling Catheter - Exam Inspection reveals a benign surgical wound. There is no active bleeding or drainage. Neurovascular status is intact throughout the lower extremity with motor and sensation fully intact. Calf is soft and nontender. 2+ dorsalis pedis pulse and less than 2 second cap refill is present. - Constitutional General appearance: Present: no acute distress - Labs CBC & Chem 7: 11/15/21 05:51 11/15/21 05:51 Labs: Microbiology - Last 24 Hours (Table) 11/13/21 06:37 Blood Culture - Preliminary Blood No Growth after 72 hours Assessment and Plan (1) Primary localized osteoarthritis of left knee Narrative/Plan: He will continue with routine postop orthopedic protocol including pain management, wound care, PT, DVT prophylaxis and medical management. he is pending D/C of [place] and 24hr trial of voiding. He may D/C tomorrow if voiding. Current Visit: Yes Status: Acute Priority: Medium Code(s): M17.12 - UNILATERAL PRIMARY OSTEOARTHRITIS, LEFT KNEE SNOMED Code(s): 803168666462972 Time with Patient: Less than 30
[2021-11-16 11:59] LABS: African American GFR (CKD) 97.2 (60.0-200.0); Anion Gap 9.7 mmol/L (10.00-18.00); BUN/Creat Ratio 22.11 Ratio (12.00-20.00); Blood Urea Nitrogen 19.9 mg/dL (9.0-27.0); Calcium 8.6 mg/dL (8.7-10.3); Carbon Dioxide 20.3 mmol/L (20.0-27.5); Non-African American GFR(CKD) 83.8 (60.0-200.0); Potassium 4.1 mmol/L (3.5-5.5)
--- NOTE | 2021-11-16 18:09 | P.PN ---
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 Jerrell Perales at [facility]. Also hypertension. Presents because of left knee severe arthritis or arthritis underwent left knee replacement surgeryon on 11/11. Postoperatively he developed a fever of 100.9., Workup showed possible urinary tract infection with abnormal urine analysis, urine culture is pending, he was started on AcipHex on this morning. Chest x-ray is negative. Also patient did not have bowel movement he has some abdominal distention but no abdominal pain or vomiting. X-ray showing possible ileus versus bowel obstruction. He had his breakfast this morning. Patient also has a Chan catheter placed on admission. He has urinary retention off about 700 mL Denies other symptoms like no chest pain or dyspnea or coughing. No rash. WBC increased from baseline of 2-2.3 up to 4 and 3.8 today. Also hemoglobin dropped down to 7.3 today. It was 8.0 on admission and baseline 9-10. 11/15/2021 Patient awake and alert with no abdominal pain, he is tolerating liquid diet, he does not have bowel movement gait, he states that usually he has one bowel movement every 2 days at his baseline and last bowel movement was prior to admission to the hospital. He did not have bowel movement since then, he is passing gases. Surgery team on the case and recommended laxatives and enemas. We will give 1 dose of lactulose he is currently on Senokot. Urologist recommend to discontinue Chan catheter prior to discharge and check a PVR, Flomax is started. His urine culture came back negative, his ceftriaxone dose lowered from 2 g down to 1 g, we will check forcalcitonin and discussed with urology and if negative test results then may consider discontinuing antibiotic while monitoring. Hyponatremia is improving. He has anemia of chronic disease per workup, probably complicated by some blood loss during surgery., Hemoglobin is stable at 7.5. Mild leukopenia and platelet is normal. Sodium 128. He remains on home dose of Eliquis 5 mg and D5 normal saline at 50 mL/h. 11/16/2021 Patient with no abdominal complaints, no abdominal distention or pain or tenderness. Diet advanced to regular diet and his appetite is improving gradually. He wants his Chan catheter today discontinued, and discussed the case with and he is in agreement to try discontinue the Chan. Discussed with the bedside nurse to take it off and keep monitoring post void residual. He remains on home dose of Eliquis 5 mg, ceftriaxone 1 g daily and I will keep that for now. his procalcitonin is mildly elevated at 0.24. He is also on D5 normal saline at 50 mL per hour. Flomax is added. Labs showed stable WBC 3.5, hemoglobin 7.3 with evidence of anemia of chronic disease and platelets normal at 190. Sodium remains stable at 128. Objective - Vital Signs Vital signs: Vital Signs Temp 97.8 F 11/16/21 08:00 Pulse 62 11/16/21 08:00 Resp 14 11/16/21 08:00 BP 123/68 11/16/21 08:00 Pulse Ox 93 L 11/16/21 08:00 Intake & Output 11/15/21 11/16/21 11/16/21 18:59 06:59 18:59 Output Total 1200 Balance -1200 Output: Urine 1200 Other: Voiding Method Indwelling Catheter Indwelling Catheter - Exam GENERAL: The patient is alert and oriented x3, not in any acute distress. Well developed, well nourished. HEENT: Pupils are round and equally reacting to light. EOMI. No scleral icterus. No conjunctival pallor. Normocephalic, atraumatic. No pharyngeal erythema. No thyromegaly. CARDIOVASCULAR: S1 and S2 present. No murmurs, rubs, or gallops. PULMONARY: Chest is clear to auscultation, no wheezing or crackles. -ABDOMEN: Soft, nontender, distended, normoactive bowel sounds. No palpable organomegaly. Chan catheter is in place MUSCULOSKELETAL: No joint swelling or deformity. -EXTREMITIES: No cyanosis, clubbing, or pedal edema. Left knee surgical wound with a dressing in place, left leg is swollen with no evidence of a bruise or discoloration. Pulses intact NEUROLOGICAL: Gross neurological examination did not reveal any focal deficits. SKIN: No rashes. no petechiae. - Labs CBC & Chem 7: 11/16/21 04:43 11/16/21 04:43 Labs: Abnormal Lab Results - Last 24 Hours (Table) 11/16/21 11/16/21 Range/Units 04:43 04:43 WBC 3.57 L (4.50-10.00) X 10*3/uL RBC 2.87 L (4.40-5.60) X 10*6/uL Hgb 7.3 L (13.0-17.0) g/dL Hct 23.9 L (39.6-50.0) % MCH 25.4 L (27.0-32.0) pg MCHC 30.5 L (32.0-37.0) g/dL RDW 16.2 H (11.5-14.5) % Lymphocytes # 0.46 L (0.90-5.00) X 10*3/uL Sodium 128 L (135-145) mmol/L Anion Gap 9.70 L (10.00-18.00) mmol/L BUN/Creatinine Ratio 22.11 H (12.00-20.00) Ratio Calcium 8.6 L (8.7-10.3) mg/dL Microbiology - Last 24 Hours (Table) 11/13/21 06:37 Blood Culture - Preliminary Blood No Growth after 72 hours Assessment and Plan Assessment: Possible acute urinary tract infection Mild sepsis with fever and mild relative leukocytosis Acute blood loss anemia, most likely secondary to surgery, rule out other causes of bleeding since patient is on Eliquis Severe osteoarthritis of the left knee status post left knee arthroplasty on 11/11 Mild pancytopenia Chronic atrial fibrillation on Eliquis Hypertension Plan: This is a pleasant 75 years old male who presents for total left knee arthroplasty, found to have UTI and possible bowel obstruction Continue with ceftriaxone Discontinue Chan catheter, with trial of voiding. Discussed with bed side nurse to check PVR. urologist on the case. surgery team for possible bowel obstruction, keep patient nothing by mouth since then. Patient tolerates diet well Start IV fluids D5 normal saline at 50 mL/h. Pain management Labs and medication were reviewed.. Continue same treatment. Continue with symptomatic treatment. Resume home medication. Monitor lytes and vitals. DVT and GI prophylaxis. Further recommendations as per clinical course of the patient DVT prophylaxis: On Eliquis GI Prophylaxis: Pepcid PT/OT: Pending
[2021-11-16] MEDS: LOSARTAN 50 MG TAB PO SCH (21:13)
[2021-11-16] MEDS: SENNOSIDES-DOCUSATE SODIUM 1 EACH TAB PO SCH (21:13)
[2021-11-16] MEDS: Macitentan [Opsumit] 10 MG Tablet PO SCH (21:14)
[2021-11-17] MEDS: DEXTROSE 5%-0.9% NACL 1,000 ML IV SCH (08:11)
[2021-11-17] MEDS: APIXABAN 5 MG TAB PO SCH (08:12)
[2021-11-17] MEDS: FAMOTIDINE 20 MG/2 ML VIAL IV SCH (08:15)
[2021-11-17] MEDS: FOLIC ACID 1 MG TAB PO SCH (08:15)
[2021-11-17] MEDS: GABAPENTIN 300 MG CAP PO SCH ×2 (08:15→16:48)
[2021-11-17] MEDS: HYDROcodone/APAP 10-325MG 1 EACH TAB PO PRN (08:28)
--- NOTE | 2021-11-17 08:58 | P.PN ---
Progress Note - Text Progress Note Date: 11/17/21 The Chan catheter was removed last night. He was subsequently able to void 100 mL, but postvoid residuals were 200 mL and 300 mL. A Chan catheter was placed. I have prescribed tamsulosin, and I intend for him to take this upon discharge. If he remains hospitalized, it would be reasonable to give him another voiding trial on 11/19/2021. However, if he is ready for discharge prior to that, he may be discharged home with the catheter and follow-up with me as an outpatient. Please notify me if we can be of further assistance.
[2021-11-17] MEDS: Dextroamphetamine/Amphetamine [Adderall Xr] PO SCH (09:39)
--- NOTE | 2021-11-17 14:13 | P.DS ---
Providers Date of admission: 11/15/21 12:43 Expected date of discharge: 11/17/21 Attending physician: Bo Martinez Consults: 11/11/21 08:17 Consult Physician Routine Consulting Provider: Clovis Espinosa Consult Reason/Comments: medical management Do you want consulting provider notified?: Yes 11/12/21 15:04 Consult Physician Routine Consulting Provider: Omkar Gamez Consult Reason/Comments: urianry retention Do you want consulting provider notified?: Yes 11/14/21 11:30 Consult Physician Urgent Consulting Provider: Alvaro Arenas Consult Reason/Comments: possible bowel obstruction Do you want consulting provider notified?: Yes Primary care physician: Clovis Espinosa - Discharge Diagnosis(es) (1) Primary localized osteoarthritis of left knee Current Visit: Yes Status: Acute Priority: Medium (2) Status post total left knee replacement Current Visit: Yes Status: Acute Hospital Course: This is a 75-year-old male who was last seen with complaint of continued left kn ee pain. The patient has a known history of degenerative arthritis of the left knee and presents to discuss surgical options. After discussion and consideration the patient elects to proceed with left total knee arthroplasty. The patient is seen preoperatively by Dr Bo Martinez and cleared for surgery by his primary care physician. The patient is admitted to [facility] on 11/11/2021 for left total knee arthroplasty. The procedures performed without complication or sequelae. Vital signs are stable at discharge. Labs are stable at discharge. The patient has been evaluated by urology during this admission and will discharge home with a Chan catheter and close outpatient follow-up. Patient was also evaluated by general surgery to rule out postoperative ileus. Patient has been having normal bowel movements. The patient is doing well postoperatively. On day of discharge patient's knee incision is healing well. There is minimal erythema. There is no drainage noted at this time. There is minimal soft tissue swelling to the knee. Patient has full foot and ankle motion without difficulty or pain. Calf is soft and nontender to palpation. Neurovascular status to the left lower extremity is intact. Patient is discharged home in good condition. Please see med rec for accurate list of home medications. Patient Condition at Discharge: Good Plan - Discharge Summary Discharge Rx Participant: No New Discharge Prescriptions: New Ondansetron Odt [Zofran Odt] 1 tab PO Q8HR PRN #10 tab PRN Reason: Nausea Sennosides [Senokot] 2 tab PO DAILY PRN #60 tablet PRN Reason: Constipation HYDROcodone/APAP 7.5-325MG [[place] 7.5-325] 1 - 2 tab PO Q6H PRN #32 tab PRN Reason: Pain Tamsulosin [Flomax] 0.4 mg PO DAILY #30 cap No Action Diclofenac Sodium [Voltaren] 75 mg PO BID PRN PRN Reason: Pain ALPRAZolam [Xanax] 0.5 mg PO QID PRN PRN Reason: Anxiety Multivit-Min/Folic/Vit K/Lycop [Men's Multivitamin Tablet] 1 each PO DAILY Ergocalciferol [Vitamin D2 (1250 Mcg = 22836 Iu)] 1,250 mcg PO Q30D Gabapentin 300 mg PO TID Folic Acid 1 mg PO DAILY HYDROcodone/APAP 10-325MG [[place] 10-325] 1 tab PO TID PRN PRN Reason: Pain Albuterol Sulfate [Ventolin HFA] 1 - 2 puff INHALATION Q6H PRN PRN Reason: Shortness Of Breath Apixaban [Eliquis] 5 mg PO BID hydroCHLOROthiazide [Hydrodiuril] 25 mg PO DAILY PRN PRN Reason: Edema Spironolactone [Aldactone] 25 mg PO DAILY PRN PRN Reason: swelling Dextroamphetamine/Amphetamine [Adderall Xr] 30 mg PO QAM Macitentan [Opsumit] 10 mg PO HS Losartan [Cozaar] 50 mg PO HS Cyanocobalamin [Vitamin B-12 Injection] 1,000 mcg SQ DIRECTED Sennosides [Senokot] 2 tab PO DAILY PRN #60 tablet PRN Reason: Constipation Discharge Medication List ALPRAZolam [Xanax] 0.5 mg PO QID PRN 12/23/20 [History] Albuterol Sulfate [Ventolin HFA] 1 - 2 puff INHALATION Q6H PRN 12/23/20 [History] Apixaban [Eliquis] 5 mg PO BID 12/23/20 [History] Dextroamphetamine/Amphetamine [Adderall Xr] 30 mg PO QAM 12/23/20 [History] Diclofenac Sodium [Voltaren] 75 mg PO BID PRN 12/23/20 [History] Losartan [Cozaar] 50 mg PO HS 12/23/20 [History] Macitentan [Opsumit] 10 mg PO HS 12/23/20 [History] Multivit-Min/Folic/Vit K/Lycop [Men's Multivitamin Tablet] 1 each PO DAILY 12/23/20 [History] Spironolactone [Aldactone] 25 mg PO DAILY PRN 12/23/20 [History] hydroCHLOROthiazide [Hydrodiuril] 25 mg PO DAILY PRN 12/23/20 [History] Cyanocobalamin [Vitamin B-12 Injection] 1,000 mcg SQ DIRECTED 06/20/21 [History] Ergocalciferol [Vitamin D2 (1250 Mcg = 19205 Iu)] 1,250 mcg PO Q30D 06/20/21 [History] Folic Acid 1 mg PO DAILY 06/20/21 [History] Gabapentin 300 mg PO TID 06/20/21 [History] Sennosides [Senokot] 2 tab PO DAILY PRN #60 tablet 07/22/21 [Rx] HYDROcodone/APAP 10-325MG [[place] 10-325] 1 tab PO TID PRN 11/05/21 [History] Ondansetron Odt [Zofran Odt] 1 tab PO Q8HR PRN #10 tab 11/11/21 [Rx] Sennosides [Senokot] 2 tab PO DAILY PRN #60 tablet 11/11/21 [Rx] HYDROcodone/APAP 7.5-325MG [[place] 7.5-325] 1 - 2 tab PO Q6H PRN #32 tab 11/13/21 [Rx] Tamsulosin [Flomax] 0.4 mg PO DAILY #30 cap 11/17/21 [Rx] Follow up Appointment(s)/Referral(s): Clovis Espinosa MD [Primary Care Provider] - 11/18/21 2:10 pm Omkar Gamez MD [STAFF PHYSICIAN] - 1 Week [facility],Equipment [NON-STAFF] - (*Please call [facility] once home to arrange delivery of the Continuous Passive Motion (CPM) machine. ) [facility], [NON-STAFF] - ([facility] will call you to schedule your in home physical therapy visits. ) Bo Martinez DO [Doctor of Osteopathic Medicine] - 11/27/21 1:30 pm (Lola LEACH) Activity/Diet/Wound Care/Special Instructions: Weightbearing as tolerated with a walker. CPM 5-6h daily as tolerated. Leave dressing intact. Dressing may be removed by home care nurse or by patient in 7 days. Then change dressing twice daily until follow up. May shower with initial dressing intact and after removal. If dressing become saturated, please remove. Recommend use of compression stockings daily until follow up to help prevent swelling and blood clots. May remove at night before sleeping. Please resume Eliquis. Pain medication per Dr. Espinosa. Please follow up with [facility] and call with any questions or concerns, . Discharge Disposition: HOME WITH HOME HEALTH SERVICES
[2021-11-17 15:56] VITALS: BP 122/64; RESP 18; TEMP 98.8
--- NOTE | 2021-11-17 17:10 | PN ---
PROGRESS NOTE DATE OF SERVICE: 11/17/2021 CHIEF COMPLAINT: Status post left knee replacement and urinary retention. HISTORY OF PRESENT ILLNESS: This gentleman has been doing well, but every time his catheter is removed he retains urine. Another attempt was performed last night and he failed it, with a reaccumulation of about 700 mL of urine. Chan catheter has been placed. He is going home today. PHYSICAL EXAMINATION: Chest is clear. The cardiac exam is unchanged. The abdomen is soft and nontender. IMPRESSION: 1. Status post left knee replacement. 2. Urinary retention. 3. Atrial fibrillation. 4. Anemia. PLAN: Home today. He will follow up with me and also Orthopedics as well as Urology. MMODL / IJN: [id number] /
[2021-11-17 18:13] VITALS: PULSE 60
--- NOTE | 2021-11-20 13:32 | CDI ---
Documentation Clarification Form Date: 11/20/2021 12:55:28 PM From: Devorah Machado RN, CCDS Admit Date: 11/15/2021 12:43:00 PM Patient Name: Vitaliy Pope Visit Number: [id number] Discharge Date: 11/17/2021 05:49:00 PM ATTENTION: The Clinical Documentation Specialists (CDI) and [facility] Coding Staff appreciate your assistance in clarifying documentation. Please respond to the clarification below the line at the bottom and electronically sign. The CDI & [facility] Coding staff will review the response and follow-up if needed. Please note: Queries are made part of the Legal Health Record. If you have any questions, please contact the author of this message via ITS. Dr. Vin Castillo Possible UTI is documented in your progress notes starting on 11/14/21. Urine culture on 11/13 final repost has no growth after 18 hours. No antibiotics at discharge. Additional clarification regarding this diagnosis is requested. History/Risk Factors: Atrial Fibrillation, Pulmonary Hypertension Heart Disease, Osteoarthritis left knee Clinical Indicators: 75-year-old male present for same day surgery for left knee replacement on 11/11/21. He had a Chan catheter placed on 11/12/21 for urinary retention. 11/15 Progress notes: His urine culture came back negative, his ceftriaxone dose lowered from 2 gm down to 1 gm, will check for-calcitonin and discussed with urology and if negative test results then may consider discontinuing antibiotic while monitoring. 11/12 @19:51 Vital Signs: 108/57 65 14 97.8 94 % RA WBC: 4.0, 3.82, 3.75, 3.57 11/13 Urinalysis: Nitrite negative, Ur Leukocyte Esterase Large, Urine WBC 75 11/13 Urine Culture: No growth after 18 hours 11/13 Blood cultures: No Growth after 144 hours Treatment Rocephin 2 GM IVPB Q 24 HRS 11/14; Rocephin 1 GM IVPB Q 24 HRS 11/15-11/17 Please clarify if there is an additional diagnosis associated with the UTI: [ ] UTI Only, POA [ ] Sepsis due to UTI, related to Chan Catheter, POA [ ] UTI Ruled out [ ] Contaminated specimen [ ] Other, please specify [ ] Unable to determine (Template Last Revised: October 2020) mild sepis due to uti MTDD
--- NOTE | 2021-11-20 14:04 | CDI ---
Documentation Clarification Form Date: 11/20/2021 01:33:45 PM From: Devorah Machado RN, CCDS Admit Date: 11/15/2021 12:43:00 PM Patient Name: Vitaliy Pope Visit Number: [id number] Discharge Date: 11/17/2021 05:49:00 PM ATTENTION: The Clinical Documentation Specialists (CDI) and [facility] Coding Staff appreciate your assistance in clarifying documentation. Please respond to the clarification below the line at the bottom and electronically sign. The CDI & [facility] Coding staff will review the response and follow-up if needed. Please note: Queries are made part of the Legal Health Record. If you have any questions, please contact the author of this message via ITS. Dr. Omkar Gamez Urinary retention unspecified, is documented in your consult on 11/14/21 and subsequent progress notes, and patient had left knee arthroplasty on 11/11/21. Additional clarification is requested regarding the relationship, if any, that exists between the diagnosis and the procedure. Patients same day surgery Diagnosis: Severe osteoarthritis left knee Post-Operative Diagnosis: Same Procedure performed: Left total knee arthroplasty History/Risk Factors: Atrial fibrillation, Hypertension, Anemia Clinical Indicators: 75-year-old male present for same day surgery for left knee replacement on 11/11/21. He had a Chan catheter placed on 11/12/21 for urinary retention, after Chan catheter was inserted bladder scan still showed 700ml of urine in the bladder. Rectum Exam: normal sphincter tone, no masses, other (Prostate approximately 30 g in size 6-8 mm nodule just to the left of midline.) Treatment: 16 -Ukrainian coude'-tip Hcan catheter inserted Monitor Chan output 11/13 Urine culture: No growth after 18 hours Flomax .4 MG PO 11/12-11/13 11/17 DC home with Chan catheter (failed postvoid residual) What relationship, if any, exists between the diagnosis of postoperative urinary retention and the procedure? [ ] Postoperative urinary retention is a complication of surgical procedure [ ] Postoperative urinary retention is an expected outcome of the surgical procedure [ ] Postoperative urinary retention is related to patients co-morbid condition(s) of prostate nodule and not a complication of the procedure [ ] Other please specify ____ [ X] Unable to determine (Template Last Revised: October 2020) MTDD
== END 2021-11-17 17:49 | disposition home health service (06) | DRG 854 ==
LOC: OR 07:25 → 4SSUR 11:04 → OR 11-13 07:23 → 4SSUR 11-13 07:32 → OBSVTOIN 11-15 12:43
PROVIDERS: ADMIT Orthopaedic Surgery; ATTEND Orthopaedic Surgery
PROC: 0SRD069 Replacement of Left Knee Joint with Oxidized Zirconium on Polyethylene Synthetic Substitute, Cemented, Open Approach (ICD-10-PCS; principal; 2021-11-11 09:15)
DX: A41.9 Sepsis, unspecified organism (principal); I48.20 Chronic atrial fibrillation, unspecified; D61.818 Other pancytopenia; E87.1 Hypo-osmolality and hyponatremia; D62 Acute posthemorrhagic anemia; N39.0 Urinary tract infection, site not specified; I27.20 Pulmonary hypertension, unspecified; D63.8 Anemia in other chronic diseases classified elsewhere; I11.0 Hypertensive heart disease with heart failure; I50.9 Heart failure, unspecified; J44.9 Chronic obstructive pulmonary disease, unspecified; G62.9 Polyneuropathy, unspecified; D50.9 Iron deficiency anemia, unspecified; E53.8 Deficiency of other specified B group vitamins; R33.9 Retention of urine, unspecified; M17.12 Unilateral primary osteoarthritis, left knee; M21.162 Varus deformity, not elsewhere classified, left knee; I25.10 Atherosclerotic heart disease of native coronary artery without angina pectoris; N40.2 Nodular prostate without lower urinary tract symptoms; Q53.10 Unspecified undescended testicle, unilateral; F90.9 Attention-deficit hyperactivity disorder, unspecified type; K21.9 Gastro-esophageal reflux disease without esophagitis; K59.00 Constipation, unspecified; R59.0 Localized enlarged lymph nodes; Z79.01 Long term (current) use of anticoagulants; Z79.899 Other long term (current) drug therapy; Z96.651 Presence of right artificial knee joint; Z97.3 Presence of spectacles and contact lenses; Z95.2 Presence of prosthetic heart valve; Z90.89 Acquired absence of other organs; Z86.79 Personal history of other diseases of the circulatory system; Z98.890 Other specified postprocedural states
CPT/HCPCS: 64448; 64999; 71045; 74019; 76942; 80048; 80053; 81001; 82607; 82746; 83540; 83550; 83605; 83735; 84145; 85025; 85610; 85730; 87040; 87086; 88300; 94760

== ENCOUNTER 2021-12-04 13:30 | Inpatient (IN) | payer MEDICARE, BC ==
[2021-12-04] MEDS ORDERED: SODIUM CHLORIDE 0.9% 1,000 ML IV STA (13:55)
[2021-12-04] MEDS ORDERED: SODIUM CHLORIDE 0.9% 500 ML 500 ML IV STA (13:55)
--- NOTE | 2021-12-04 13:59 | ED ---
General Adult HPI - General Chief complaint: Weakness Stated complaint: Weakness Time Seen by Provider: 12/04/21 13:35 Source: patient, EMS, RN notes reviewed, old records reviewed Mode of arrival: EMS Limitations: physical limitation - History of Present Illness Initial comments: This is a 76-year-old male presents emergency Department stating that he had surgery on his left knee 4 weeks ago. Patient states since that times become weaker and weaker to the point now where he can't even stand because his legs give out from under him. Patient's girlfriend states the patient sleeps about 18 hours a day. Patient states he is not eating or drinking because he just isn't hungry. Patient denies any chest pain difficulty breathing shortness of breath. Patient denies any abdominal pain patient denies nausea vomiting diarrhea. Patient denies headache patient denies lightheadedness or dizziness. Patient denies any dysuria hematuria urinary frequency. Patient denies any injury or trauma - Related Data Home Medications Medication Instructions Recorded Confirmed ALPRAZolam [Xanax] 1 mg PO BID PRN 12/23/20 12/04/21 Albuterol Sulfate [Ventolin HFA] 1 - 2 puff INHALATION RT-Q6H PRN 12/23/20 12/04/21 Apixaban [Eliquis] 5 mg PO BID 12/23/20 12/04/21 Dextroamphetamine/Amphetamine 30 mg PO DAILY 12/23/20 12/04/21 [Adderall Xr] Diclofenac Sodium [Voltaren] 75 mg PO DAILY PRN 12/23/20 12/04/21 Losartan [Cozaar] 50 mg PO HS 12/23/20 12/04/21 Macitentan [Opsumit] 10 mg PO HS 12/23/20 12/04/21 Multivit-Min/Folic/Vit K/Lycop 1 tab PO DAILY 12/23/20 12/04/21 [Men's Multivitamin Tablet] Cyanocobalamin [Vitamin B-12 1,000 mcg SQ DAILY 06/20/21 12/04/21 Injection] Ergocalciferol [Vitamin D2 (1250 1,250 mcg PO Q30D 06/20/21 12/04/21 Mcg = 62499 Iu)] Folic Acid 1 mg PO DAILY 06/20/21 12/04/21 Gabapentin 300 mg PO TID 06/20/21 12/04/21 HYDROcodone/APAP 10-325MG [[place] 1 tab PO TID PRN 11/05/21 12/04/21 10-325] Furosemide [Lasix] 40 mg PO DAILY 12/04/21 12/04/21 Omeprazole 20 mg PO DAILY 12/04/21 12/04/21 Spironolactone-Hctz 25-25Mg 1 tab PO DAILY 12/04/21 12/04/21 [Aldactazide 25-25Mg] Previous Rx's Medication Instructions Recorded Sennosides [Senokot] 2 tab PO DAILY PRN #60 tablet 07/22/21 Ondansetron Odt [Zofran Odt] 1 tab PO Q8HR PRN #10 tab 11/11/21 Tamsulosin [Flomax] 0.4 mg PO DAILY #30 cap 11/17/21 Allergies Allergy/AdvReac Type Severity Reaction Status Date / Time No Known Allergies Allergy Verified 12/04/21 14:38 Review of Systems ROS Statement: Those systems with pertinent positive or pertinent negative responses have been documented in the HPI. ROS Other: All systems not noted in ROS Statement are negative. Past Medical History Past Medical History: Atrial Flutter, GERD/Reflux, Hypertension, Respiratory Disorder Additional Past Medical History / Comment(s): PULMONARY HTN. ANEMIA History of Any Multi-Drug Resistant Organisms: None Reported Past Surgical History: Heart Catheterization, Tonsillectomy Additional Past Surgical History / Comment(s): COLONOSCOPY Past Anesthesia/Blood Transfusion Reactions: No Reported Reaction Additional Past Anesthesia/Blood Transfusion Reaction / Comment(s): WAS SLOW TO COME OUT OF ANESTHESIA ONCE Past Psychological History: ADD/ADHD Smoking Status: Never smoker Past Alcohol Use History: Occasional Past Drug Use History: None Reported - Past Family History Mother Family Medical History: No Reported History General Exam - General Exam Comments Initial Comments: GENERAL: Patient is well-developed and well-nourished. Patient is nontoxic and well- hydrated and is in mild distress. Patient is very lethargic but able to answer most questions he does not know the year but he knows the president and the speaker the house. ENT: Neck is soft and supple. No significant lymphadenopathy is noted. Oropharynx is clear. Dry mucous membranes. Neck has full range of motion without eliciting any pain. EYES: The sclera were anicteric and conjunctiva were pink and moist. Extraocular movements were intact and pupils were equal round and reactive to light. Eyelids were unremarkable. PULMONARY: Unlabored respirations. Good breath sounds bilaterally. No audible rales rhonchi or wheezing was noted. CARDIOVASCULAR: There is a regular rate and rhythm without any murmurs gallops or rubs. ABDOMEN: Soft and nontender with normal bowel sounds. SKIN: Skin is clear with no lesions or rashes and otherwise unremarkable. NEUROLOGIC: Patient is alert and oriented x3. Cranial nerves II through XII are grossly intact. Motor and sensory are also intact. Normal speech, volume and content. Symmetrical smile. MUSCULOSKELETAL: Patient is able to move the left knee fairly well but not full range of motion there is no tenderness to it there is no redness. Patient has some swelling to the leg but denies calf tenderness. PSYCHIATRIC: Normal psychiatric evaluation. Limitations: physical limitation Course Vital Signs 12/04/21 12/04/21 13:35 14:39 Temperature 98.1 F Pulse Rate 59 L Pulse Rate [ 62 [place] [employer] ] Respiratory 18 Rate Blood Pressure 143/83 O2 Sat by Pulse 92 L Oximetry Medical Decision Making - Medical Decision Making Girlfriend came in and stated that he was having maroon stools with some clots in the stool. Patient is on eliquis. Patient's EKG shows atrial fibrillation at 61 bpm QRS is 175 Q-T intervals 461 QTC is 464. Patient's right bundle branch block CT of brain showed no acute abnormality. I spoke with Dr. Espinosa and he agreed to admit the patient admitted the patient wrote admitting orders. - Lab Data Result diagrams: 12/04/21 13:55 12/04/21 13:55 Lab Results 12/04/21 12/04/21 12/04/21 Range/Units 13:55 13:55 13:55 WBC 2.7 L (3.8-10.6) k/uL RBC 3.66 L (4.30-5.90) m/uL Hgb 9.6 L (13.0-17.5) gm/dL Hct 31.3 L (39.0-53.0) % MCV 85.7 (80.0-100.0) fL MCH 26.2 (25.0-35.0) pg MCHC 30.6 L (31.0-37.0) g/dL RDW 17.0 H (11.5-15.5) % Plt Count 279 (150-450) k/uL MPV 7.3 Neutrophils % (Manual) 62 % Lymphocytes % (Manual) 22 % Monocytes % (Manual) 9 % Eosinophils % (Manual) 7 % Neutrophils # (Manual) 1.67 (1.3-7.7) k/uL Lymphocytes # (Manual) 0.59 L (1.0-4.8) k/uL Monocytes # (Manual) 0.24 (0-1.0) k/uL Eosinophils # (Manual) 0.19 (0-0.7) k/uL Nucleated RBCs 0 (0-0) /100 WBC Polychromasia Present Hypochromasia Marked Anisocytosis Slight PT 12.1 H (9.0-12.0) sec INR 1.1 (<1.2) APTT 31.4 H (22.0-30.0) sec Sodium (137-145) mmol/L Potassium (3.5-5.1) mmol/L Chloride (98-107) mmol/L Carbon Dioxide (22-30) mmol/L Anion Gap mmol/L BUN (9-20) mg/dL Creatinine (0.66-1.25) mg/dL Est GFR (CKD-EPI)AfAm (>60 ml/min/1.73 sqM) Est GFR (CKD-EPI)NonAf (>60 ml/min/1.73 sqM) Glucose (74-99) mg/dL Plasma Lactic Acid Terry (0.7-2.0) mmol/L Calcium (8.4-10.2) mg/dL Magnesium (1.6-2.3) mg/dL Total Bilirubin (0.2-1.3) mg/dL AST (17-59) U/L ALT (4-49) U/L Alkaline Phosphatase (38-126) U/L Troponin I (0.000-0.034) ng/mL Total Protein (6.3-8.2) g/dL Albumin (3.5-5.0) g/dL Urine Color Yellow Urine Appearance Clear (Clear) Urine pH 5.5 (5.0-8.0) Ur Specific [place] 1.021 (1.001-1.035) Urine Protein Trace H (Negative) Urine Glucose (UA) Negative (Negative) Urine Ketones Negative (Negative) Urine Blood Negative (Negative) Urine Nitrite Negative (Negative) Urine Bilirubin Negative (Negative) Urine Urobilinogen 2.0 (<2.0) mg/dL Ur Leukocyte Esterase Trace H (Negative) Urine RBC 2 (0-5) /hpf Urine WBC 7 H (0-5) /hpf Hyaline Casts 4 H (0-2) /lpf Urine Mucus Rare H (None) /hpf Blood Type Blood Type Recheck Bld Type Recheck Status Antibody Screen Spec Expiration Date 12/04/21 12/04/21 12/04/21 Range/Units 13:55 13:55 13:55 WBC (3.8-10.6) k/uL RBC (4.30-5.90) m/uL Hgb (13.0-17.5) gm/dL Hct (39.0-53.0) % MCV (80.0-100.0) fL MCH (25.0-35.0) pg MCHC (31.0-37.0) g/dL RDW (11.5-15.5) % Plt Count (150-450) k/uL MPV Neutrophils % (Manual) % Lymphocytes % (Manual) % Monocytes % (Manual) % Eosinophils % (Manual) % Neutrophils # (Manual) (1.3-7.7) k/uL Lymphocytes # (Manual) (1.0-4.8) k/uL Monocytes # (Manual) (0-1.0) k/uL Eosinophils # (Manual) (0-0.7) k/uL Nucleated RBCs (0-0) /100 WBC Polychromasia Hypochromasia Anisocytosis PT (9.0-12.0) sec INR (<1.2) APTT (22.0-30.0) sec Sodium 135 L (137-145) mmol/L Potassium 4.7 (3.5-5.1) mmol/L Chloride 99 (98-107) mmol/L Carbon Dioxide 27 (22-30) mmol/L Anion Gap 9 mmol/L BUN 19 (9-20) mg/dL Creatinine 1.02 (0.66-1.25) mg/dL Est GFR (CKD-EPI)AfAm 83 (>60 ml/min/1.73 sqM) Est GFR (CKD-EPI)NonAf 72 (>60 ml/min/1.73 sqM) Glucose 85 (74-99) mg/dL Plasma Lactic Acid Terry 1.0 (0.7-2.0) mmol/L Calcium 8.8 (8.4-10.2) mg/dL Magnesium 2.2 (1.6-2.3) mg/dL Total Bilirubin 1.0 (0.2-1.3) mg/dL AST 26 (17-59) U/L ALT 10 (4-49) U/L Alkaline Phosphatase 165 H (38-126) U/L Troponin I 0.025 (0.000-0.034) ng/mL Total Protein 6.7 (6.3-8.2) g/dL Albumin 3.6 (3.5-5.0) g/dL Urine Color Urine Appearance (Clear) Urine pH (5.0-8.0) Ur Specific [place] (1.001-1.035) Urine Protein (Negative) Urine Glucose (UA) (Negative) Urine Ketones (Negative) Urine Blood (Negative) Urine Nitrite (Negative) Urine Bilirubin (Negative) Urine Urobilinogen (<2.0) mg/dL Ur Leukocyte Esterase (Negative) Urine RBC (0-5) /hpf Urine WBC (0-5) /hpf Hyaline Casts (0-2) /lpf Urine Mucus (None) /hpf Blood Type Blood Type Recheck Bld Type Recheck Status Antibody Screen Spec Expiration Date 12/04/21 Range/Units 15:57 WBC (3.8-10.6) k/uL RBC (4.30-5.90) m/uL Hgb (13.0-17.5) gm/dL Hct (39.0-53.0) % MCV (80.0-100.0) fL MCH (25.0-35.0) pg MCHC (31.0-37.0) g/dL RDW (11.5-15.5) % Plt Count (150-450) k/uL MPV Neutrophils % (Manual) % Lymphocytes % (Manual) % Monocytes % (Manual) % Eosinophils % (Manual) % Neutrophils # (Manual) (1.3-7.7) k/uL Lymphocytes # (Manual) (1.0-4.8) k/uL Monocytes # (Manual) (0-1.0) k/uL Eosinophils # (Manual) (0-0.7) k/uL Nucleated RBCs (0-0) /100 WBC Polychromasia Hypochromasia Anisocytosis PT (9.0-12.0) sec INR (<1.2) APTT (22.0-30.0) sec Sodium (137-145) mmol/L Potassium (3.5-5.1) mmol/L Chloride (98-107) mmol/L Carbon Dioxide (22-30) mmol/L Anion Gap mmol/L BUN (9-20) mg/dL Creatinine (0.66-1.25) mg/dL Est GFR (CKD-EPI)AfAm (>60 ml/min/1.73 sqM) Est GFR (CKD-EPI)NonAf (>60 ml/min/1.73 sqM) Glucose (74-99) mg/dL Plasma Lactic Acid Terry (0.7-2.0) mmol/L Calcium (8.4-10.2) mg/dL Magnesium (1.6-2.3) mg/dL Total Bilirubin (0.2-1.3) mg/dL AST (17-59) U/L ALT (4-49) U/L Alkaline Phosphatase (38-126) U/L Troponin I (0.000-0.034) ng/mL Total Protein (6.3-8.2) g/dL Albumin (3.5-5.0) g/dL Urine Color Urine Appearance (Clear) Urine pH (5.0-8.0) Ur Specific [place] (1.001-1.035) Urine Protein (Negative) Urine Glucose (UA) (Negative) Urine Ketones (Negative) Urine Blood (Negative) Urine Nitrite (Negative) Urine Bilirubin (Negative) Urine Urobilinogen (<2.0) mg/dL Ur Leukocyte Esterase (Negative) Urine RBC (0-5) /hpf Urine WBC (0-5) /hpf Hyaline Casts (0-2) /lpf Urine Mucus (None) /hpf Blood Type O Positive Blood Type Recheck O Pos Bld Type Recheck Status No Antibody Screen NEGATIVE Spec Expiration Date 12/07/20212356 Disposition Clinical Impression: Altered mental status, Generalized weakness, GI bleed Disposition: ADMITTED IP TO THIS HOSP Referrals: Clovis Espinosa MD [Primary Care Provider] - 1-2 days Time of Disposition: 19:11
[2021-12-04 14:34] LABS: INR 1.1 (<1.2)
[2021-12-04 14:35] LABS: Partial Thromboplastin Time 31.4 sec (22.0-30.0); Prothrombin Time 12.1 sec (9.0-12.0)
[2021-12-04 14:40] LABS: Albumin 3.6 g/dL (3.5-5.0); Anisocytosis Slight; Calcium 8.8 mg/dL (8.4-10.2); HCT 31.3 % (39.0-53.0); HGB 9.6 gm/dL (13.0-17.5); Hypochromasia Marked; MCH 26.2 pg (25.0-35.0); MCHC 30.6 g/dL (31.0-37.0); MCV 85.7 fL (80.0-100.0); Magnesium 2.2 mg/dL (1.6-2.3); Mean Platelet Volume 7.3; Platelet Count 279 k/uL (150-450); Potassium 4.7 mmol/L (3.5-5.1); RBC 3.66 m/uL (4.30-5.90); Total Protein 6.7 g/dL (6.3-8.2); WBC 2.7 k/uL (3.8-10.6)
[2021-12-04 15:10] LABS: Eosinophils # (M) 0.19 k/uL (0-0.7); Lymphocytes # (M) 0.59 k/uL (1.0-4.8); Monocytes # (M) 0.24 k/uL (0-1.0); Neutrophils # (M) 1.67 k/uL (1.3-7.7); Neutrophils % (M) 62 %; Nucleated Red Blood Cells 0 /100 WBC (0-0); Polychromasia Present; Total Cells Counted 100
--- NOTE | 2021-12-04 15:13 | XR ---
EXAMINATION TYPE: XR chest 2V DATE OF EXAM: 12/04/2021 COMPARISON: 11/13/2021 HISTORY: 76-year-old male with weakness and fatigue TECHNIQUE: AP and lateral views FINDINGS: Heart is moderately enlarged. Diffuse interstitial density. No ilana consolidation or pleural effusio n. PFO closure device. IMPRESSION: Moderate cardiomegaly. Interstitial changes. Correlate to exclude mild pulmonary vascular congestion.
[2021-12-04] MEDS ORDERED: HYDROmorphone 0.5 MG/0.5 ML SYRINGE IVP STA (15:55)
[2021-12-04 17:23] LABS: Appearance,Urine Clear (Clear); Bilirubin,Urine Negative (Negative); Blood,Urine Negative (Negative); Color,Urine Yellow; Glucose,Urine (UA) Negative (Negative); Hyaline Casts,Urine 4 /lpf (0-2); Ketones,Urine Negative (Negative); Leukocyte Esterase,Urine Trace (Negative); Mucus,Urine Rare /hpf; Nitrite,Urine Negative (Negative); PH, Urine 5.5 (5.0-8.0); Protein,Urine Trace (Negative); RBC,Urine 2 /hpf (0-5); Specific Gravity,Urine 1.021 (1.001-1.035); WBC,Urine 7 /hpf (0-5)
--- NOTE | 2021-12-04 18:44 | CT ---
EXAMINATION TYPE: CT brain wo con CT DLP: 1098.4 mGycm, Automated exposure control for dose reduction was used. DATE OF EXAM: 12/04/2021 5:41 PM COMPARISON: None. CLINICAL INDICATION:Male, 76 years old with history of Altered mental status. TECHNIQUE: Brain: Multiple axial CT images of the brain were obtained without IV contrast. FINDINGS: Brain: Extra-axial spaces: No abnormal extra-axial fluid collections. Ventricular system: Within normal limits Cerebral parenchyma: Cerebral atrophy. No acute intraparenchymal hemorrhage or mass effect. The khoury -white junction is well differentiated. Scattered hypoattenuating areas are seen within the white mat ter. Cerebellum: Unremarkable. Mass effect: No evidence of midline shift. Intracranial vasculature: Atherosclerotic calcifications of the intracranial vessels. Soft tissues: Normal. Calvarium/osseous structures: No depressed skull fracture. Paranasal sinuses and mastoid air cells: Mild scattered paranasal sinus disease. Visualized orbits: Bilateral aphakia IMPRESSION: 1. No acute intracranial process. 2. Nonspecific white matter changes, likely secondary to chronic small vessel ischemic disease.
[2021-12-04] MEDS ORDERED: NALOXONE 0.4 MG/ML 1 ML VIAL IVP STA (18:58)
[2021-12-04] MEDS ORDERED: SODIUM CHLORIDE 0.9% 1,000 ML IV ONE (19:11)
[2021-12-04 20:50] LABS: Anisocytosis Slight; Basophils % (A) 1 %; Eosinophils # (A) 0.1 k/uL (0-0.7); Eosinophils % (A) 3 %; HCT 31.4 % (39.0-53.0); HGB 9.1 gm/dL (13.0-17.5); Hypochromasia Marked; Lymphocytes # (A) 0.4 k/uL (1.0-4.8); Lymphocytes % (A) 14 %; MCH 25.7 pg (25.0-35.0); MCHC 29.1 g/dL (31.0-37.0); MCV 88.3 fL (80.0-100.0); Mean Platelet Volume 7.3; Monocytes # (A) 0.2 k/uL (0-1.0); Monocytes % (A) 7 %; Neutrophils # (A) 2.3 k/uL (1.3-7.7); Neutrophils % (A) 74 %; Platelet Count 198 k/uL (150-450); RBC 3.56 m/uL (4.30-5.90); RDW 16.7 % (11.5-15.5); WBC 3.2 k/uL (3.8-10.6)
[2021-12-05 09:22] LABS: Basophils # (A) 0.03 X 10*3/uL (0.00-0.10); Eosinophils # (A) 0.05 X 10*3/uL (0.04-0.35); Eosinophils % (A) 1.6 %; HCT 26.3 % (39.6-50.0); HGB 7.7 g/dL (13.0-17.0); Immature Grans, Automated 0.3 %; Lymphocytes # (A) 0.42 X 10*3/uL (0.90-5.00); Lymphocytes % (A) 13.7 %; MCH 25.3 pg (27.0-32.0); MCHC 29.3 g/dL (32.0-37.0); MCV 86.5 fL (80.0-97.0); Mean Platelet Volume 9.9 fL (9.5-12.2); Monocytes # (A) 0.24 X 10*3/uL (0.20-1.00); Monocytes % (A) 7.8 %; NRBC Per 100 WBC 0 /100 WBCS (0.0-0.0); Neutrophils # (A) 2.31 X 10*3/uL (1.80-7.70); Neutrophils % (A) 75.6 %; Platelet Count 204 X 10*3/uL (140-440); RBC 3.04 X 10*6/uL (4.40-5.60); RDW 17.5 % (11.5-14.5); WBC 3.06 X 10*3/uL (4.50-10.00)
[2021-12-05] MEDS ORDERED: SENNOSIDES 8.6 MG TAB PO PRN (11:37)
[2021-12-05] MEDS ORDERED: ALPRAZolam 1 MG TAB PO PRN (11:37)
[2021-12-05] MEDS: GABAPENTIN 300 MG CAP PO SCH ×2 (15:20→21:21)
[2021-12-05] MEDS: APIXABAN 5 MG TAB PO SCH ×2 (15:20→21:21)
--- NOTE | 2021-12-05 16:49 | P.GSCN ---
History of Present Illness Consult date: 12/05/21 Reason for Consult: GI bleed History of present illness: Patient presents to the hospital complaining of fatigue and may be some confusion. He was brought in by his family. Apparently he had left knee surgery 4 weeks ago. He has had progressive and persistent weakness. Patient was found to be slightly anemic. Patient states he deals with anemia chronically and has been following with Dr. Elena for this. He thinks his last colonoscopy was a couple of years ago. No history of known ulcers. He is not sure if he has had an upper endoscopy in the past. Denies rectal bleeding or melena. Review of Systems The patient denies any acute changes in vision or hearing, no dysphagia or odynophagia, no chest pain or shortness of breath, no dysuria or hematuria, no headache, no runny nose, no rectal bleeding or melena, no unexplained weight loss Past Medical History Past Medical History: Atrial Flutter, GERD/Reflux, Hypertension, Respiratory Disorder Additional Past Medical History / Comment(s): PULMONARY HTN. ANEMIA History of Any Multi-Drug Resistant Organisms: None Reported Past Surgical History: Heart Catheterization, Tonsillectomy Additional Past Surgical History / Comment(s): COLONOSCOPY Past Anesthesia/Blood Transfusion Reactions: No Reported Reaction Additional Past Anesthesia/Blood Transfusion Reaction / Comm: WAS SLOW TO COME OUT OF ANESTHESIA ONCE Past Psychological History: ADD/ADHD Smoking Status: Never smoker Past Alcohol Use History: Occasional Past Drug Use History: None Reported - Past Family History Mother Family Medical History: No Reported History Medications and Allergies Home Medications Medication Instructions Recorded Confirmed Type ALPRAZolam [Xanax] 1 mg PO BID PRN 12/23/20 12/04/21 History Albuterol Sulfate [Ventolin HFA] 1 - 2 puff INHALATION RT-Q6H PRN 12/23/20 12/04/21 History Apixaban [Eliquis] 5 mg PO BID 12/23/20 12/04/21 History Dextroamphetamine/Amphetamine 30 mg PO DAILY 12/23/20 12/04/21 History [Adderall Xr] Diclofenac Sodium [Voltaren] 75 mg PO DAILY PRN 12/23/20 12/04/21 History Losartan [Cozaar] 50 mg PO HS 12/23/20 12/04/21 History Macitentan [Opsumit] 10 mg PO HS 12/23/20 12/04/21 History Multivit-Min/Folic/Vit K/Lycop 1 tab PO DAILY 12/23/20 12/04/21 History [Men's Multivitamin Tablet] Cyanocobalamin [Vitamin B-12 1,000 mcg SQ DAILY 06/20/21 12/04/21 History Injection] Ergocalciferol [Vitamin D2 (1250 1,250 mcg PO Q30D 06/20/21 12/04/21 History Mcg = 18517 Iu)] Folic Acid 1 mg PO DAILY 06/20/21 12/04/21 History Gabapentin 300 mg PO TID 06/20/21 12/04/21 History Sennosides [Senokot] 2 tab PO DAILY PRN #60 tablet 07/22/21 12/04/21 Rx HYDROcodone/APAP 10-325MG [[place] 1 tab PO TID PRN 11/05/21 12/04/21 History 10-325] Ondansetron Odt [Zofran Odt] 1 tab PO Q8HR PRN #10 tab 11/11/21 12/04/21 Rx Tamsulosin [Flomax] 0.4 mg PO DAILY #30 cap 11/17/21 12/04/21 Rx Furosemide [Lasix] 40 mg PO DAILY 12/04/21 12/04/21 History Omeprazole 20 mg PO DAILY 12/04/21 12/04/21 History Spironolactone-Hctz 25-25Mg 1 tab PO DAILY 12/04/21 12/04/21 History [Aldactazide 25-25Mg] Allergies Allergy/AdvReac Type Severity Reaction Status Date / Time No Known Allergies Allergy Verified 12/04/21 14:38 Surgical - Exam Vital Signs Temp Pulse Resp BP Pulse Ox 98.1 F 59 L 18 143/83 92 L 12/04/21 13:35 12/04/21 13:35 12/04/21 13:35 12/04/21 13:35 12/04/21 13:35 Physical exam: General: Well-developed, well-nourished HEENT: Normocephalic, sclerae nonicteric Abdomen: Nontender, nondistended Extremities: Left knee incision with dressing in place Neuro: Alert and oriented Results - Labs 12/05/21 03:23 12/04/21 13:55 Abnormal Lab Results - Last 24 Hours (Table) 12/04/21 12/04/21 12/05/21 Range/Units 13:55 20:39 03:23 WBC 3.2 L 3.06 L (3.8-10.6) k/uL RBC 3.56 L 3.04 L (4.30-5.90) m/uL Hgb 9.1 L 7.7 L (13.0-17.5) gm/dL Hct 31.4 L 26.3 L (39.0-53.0) % MCH 25.3 L (27.0-32.0) pg MCHC 29.1 L 29.3 L (31.0-37.0) g/dL RDW 16.7 H 17.5 H (11.5-15.5) % Lymphocytes # 0.4 L 0.42 L (1.0-4.8) k/uL Urine Protein Trace H (Negative) Ur Leukocyte Esterase Trace H (Negative) Urine WBC 7 H (0-5) /hpf Hyaline Casts 4 H (0-2) /lpf Urine Mucus Rare H (None) /hpf Assessment and Plan (1) GI bleed Narrative/Plan: 76-year-old male with anemia and possible GI bleed. Check stool for occult blood. Possible endoscopic workup during this hospitalization. We'll discuss further. Current Visit: Yes Status: Acute Code(s): K92.2 - GASTROINTESTINAL HEMORRHAGE, UNSPECIFIED SNOMED Code(s): 38595692
--- NOTE | 2021-12-05 20:11 | HP ---
HISTORY AND PHYSICAL CHIEF COMPLAINT: Altered mental status. HISTORY OF PRESENT ILLNESS: This is another recent admission for this 76-year-old white male. He recently underwent a knee replacement. He went home and was doing fairly well and was being followed with Telehealth. He then came into the emergency room weak and confused. There is no history of any headache, fall, focalized or lateralizing neurologic symptoms or signs, difficulty with speech, fever, chills, nausea, vomiting, incontinence, etc. Review of systems unobtainable. Past medical history, family history, and personal and social histories are all otherwise unchanged from his recent admitting and discharge summaries. He is inclined to use narcotics and tranquilizers frequently. It is wondered if this may represent an overdose. He is he is ALLERGIC TO SELENE INHIBITORS. It is believed that he does not abuse alcohol. PHYSICAL EXAMINATION: Blood pressure is 118/65 with a pulse of 83, respirations of 20, and he is afebrile. In general he appeared to be pale. He was slightly lethargic. He was arousable. Head, ears, eyes, nose, mouth and throat seemed to be normal. Gaze was conjugate. Pupils equally round. Chest was clear. Cardiac exam demonstrated sinus rhythm with no murmurs or extra sounds. The abdomen was soft and nontender. Extremities were normal. The recently operated on left knee did not look infected. He had no gross neurologic findings other than his lethargy. He is admitted to the hospital with diagnoses: 1. Mental status changes. 2. Lethargy. 3. Status post recent left knee replacement. 4. History of congestive heart failure. 5. History of chronic obstructive pulmonary disease. PLAN: 1. Bedrest. 2. IV fluids. 3. Frequent monitoring of his neurologic status and vital signs. 4. Testing as appropriate for signs and symptoms. Will keep him off his sedatives and narcotics for the time being. MMODL / IJN: [id number] /
--- NOTE | 2021-12-05 20:17 | PN ---
PROGRESS NOTE DATE OF SERVICE: 12/05/2021 CHIEF COMPLAINT: Mental status changes. HISTORY OF PRESENT ILLNESS: This gentleman is still lethargic but seems to be possibly slightly better. He has no complaints of headaches, chest pain, shortness of breath, abdominal pain, chills, etc. PHYSICAL EXAMINATION: Chest is clear. Cardiac exam is normal. Abdomen is soft and nontender. Left knee looks good without any erythema or induration. IMPRESSION: 1. Mental status changes with lethargy. 2. Chronic obstructive pulmonary disease. 3. Congestive heart failure. 4. Recent left knee replacement. PLAN: Continue to follow vital signs and laboratory studies. MMODL / IJN: [id number] /
[2021-12-05] MEDS ORDERED: LOSARTAN 50 MG TAB PO SCH (21:00)
[2021-12-06 07:19] VITALS: BP 143/72; PULSE 48; RESP 18; TEMP 97.5
[2021-12-06 08:40] VITALS: BMI 27.1
[2021-12-06] MEDS ORDERED: SPIRONOLACTONE-HCTZ 25-25MG 1 EACH TAB PO SCH (09:00)
[2021-12-06] MEDS ORDERED: FUROSEMIDE 40 MG TAB PO SCH (09:00)
[2021-12-06] MEDS ORDERED: PANTOPRAZOLE 40 MG TABLET PO SCH (09:00)
[2021-12-06] MEDS: GABAPENTIN 300 MG CAP PO SCH (09:02)
[2021-12-06] MEDS: APIXABAN 5 MG TAB PO SCH (09:02)
--- NOTE | 2021-12-06 10:09 | P.PN ---
Subjective Progress Note Date: 12/06/21 Principal diagnosis: Anemia Patient is frustrated today. States he wants to go home today. No bowel function since I saw him yesterday. No labs from this morning thus far. Vasu erating diet. Objective - Vital Signs Vital signs: Vital Signs Temp 97.5 F L 12/06/21 07:17 Pulse 48 L 12/06/21 07:17 Resp 18 12/06/21 07:17 BP 143/72 12/06/21 07:17 Pulse Ox 96 12/06/21 07:17 Intake & Output 12/05/21 12/06/21 12/06/21 18:59 06:59 18:59 Intake Total 200 180 Output Total 800 1575 Balance -800 -1375 180 Weight 90.718 kg Intake: Oral 200 180 Output: Urine 800 1575 Other: Voiding Method Indwelling Catheter Indwelling Catheter - Exam Abdomen: Soft, nontender, nondistended - Labs CBC & Chem 7: 12/05/21 03:23 12/04/21 13:55 Assessment and Plan (1) GI bleed Narrative/Plan: 76-year-old male being evaluated for possible GI bleed. Await stool for occult blood. Check CBC. Patient states his anemia is chronic in nature and is not interested in endoscopy at this time. We'll follow. Current Visit: Yes Status: Acute Code(s): K92.2 - GASTROINTESTINAL HEMORRHAGE, UNSPECIFIED SNOMED Code(s): 18461162
--- NOTE | 2021-12-06 17:56 | DS ---
DISCHARGE SUMMARY CHIEF COMPLAINT: Mental status changes. HISTORY OF PRESENT ILLNESS AND PHYSICAL EXAMINATION: Details of this man's history and physical can be found in the initial workup. LABORATORY STUDIES: While he was in the hospital he had laboratory studies, details of which can be found in the laboratory section of his chart. COURSE IN THE HOSPITAL: After admission he was placed on bedrest, started intravenous fluids and frequent monitoring of his neurologic status and vital signs. His mentation improved. It was felt that this probably was due to an excessive use of his analgesics and tranquilizers at home. He was doing well and there were no signs of any other issues. It was felt that he could go home on December 06. His Chan catheter will be removed and he will go home on his usual activity, diet and medication. He was told on cut down on his use of Vicodin and Xanax. He will be seen in the office in several days. FINAL DIAGNOSIS: 1. Mental status changes due to analgesic and tranquilizer excess. 2. Congestive heart failure. 3. Chronic anemia. 4. Chronic obstructive pulmonary disease. 5. Status post recent left knee replacement. OPERATIONS: None. CONSULTATION: General Surgery. He is improved. MMODL / IJN: [id number] /
== END 2021-12-06 14:20 | disposition home or self-care (01) | DRG 378 ==
LOC: EC 13:30 → 6NMEDSUR 19:11 → OBSVTOIN 12-05 13:04
PROVIDERS: ADMIT Family Medicine; ATTEND Family Medicine
DX: K92.2 Gastrointestinal hemorrhage, unspecified (principal); I48.92 Unspecified atrial flutter; J44.9 Chronic obstructive pulmonary disease, unspecified; I50.9 Heart failure, unspecified; Z79.01 Long term (current) use of anticoagulants; I48.91 Unspecified atrial fibrillation; T39.95XA Adverse effect of unspecified nonopioid analgesic, antipyretic and antirheumatic, initial encounter; F90.9 Attention-deficit hyperactivity disorder, unspecified type; I45.10 Unspecified right bundle-branch block; T43.505A Adverse effect of unspecified antipsychotics and neuroleptics, initial encounter; K21.9 Gastro-esophageal reflux disease without esophagitis; I27.20 Pulmonary hypertension, unspecified; I11.0 Hypertensive heart disease with heart failure; D64.9 Anemia, unspecified; Z79.899 Other long term (current) drug therapy; Z88.8 Allergy status to other drugs, medicaments and biological substances; Z96.652 Presence of left artificial knee joint; X58.XXXA Exposure to other specified factors, initial encounter
CPT/HCPCS: 36415; 70450; 71046; 80053; 81001; 83605; 83735; 83880; 84484; 85025; 85610; 85730; 86850; 86900; 86901; 93005; 96361; 96374; 96375; 99285

== ENCOUNTER 2021-12-24 21:10 | Inpatient (IN) | payer MEDICARE, BC ==
[2021-12-24] MEDS ORDERED: SODIUM CHLORIDE 0.9% 500 ML 500 ML IV STA (21:14)
--- NOTE | 2021-12-24 21:20 | ED ---
General Adult HPI - General Stated complaint: Neuro Deficits Time Seen by Provider: 12/24/21 21:14 - History of Present Illness Initial comments: Dictation was produced using [employer] dictation software. please excuse any grammatical, word or spelling errors. Chief Complaint: This 76-year-old male presents to the emergency department for code stroke History of Present Illness: 76-year-old male who has past medical history of A. fib. He allegedly takes anticoagulation according to EMS. History of present illness obtained from EMS. They state that they were called by the patient's . Patient was last seen normal at around 8 PM when his symptoms began. According to EMS patient upon initial evaluation was very aphasic and dysarthric. They did not attempt to perform a NIH stroke scale. Patient was found have elevated blood pressure. En route patient's symptoms improved slightly. EMS reports that upon arrival to the emergency department he is a little more responsive. Unable to obtain significant her to mental status PHYSICAL EXAM: General Impression: Lethargic, not in acute distress HEENT: Normocephalic atraumatic, extra-ocular movements intact, pupils equal and reactive to light bilaterally, dry mucous membranes Cardiovascular: Heart regular rate and rhythm Chest: no retractions, no tachypnea Abdomen: abdomen soft, non-tender, non-distended, no organomegaly Musculoskeletal: Pulses present and equal in all extremities, no peripheral edema Motor: no focal deficits noted Neurological: Mild right perioral numbness, no facial asymmetry, patient's difficult to follow commands. He does have some drift of the left upper extremity and bilateral lower extremities. He is aphasic and dysarthric. Ataxia not tested. NIH score of approximately 10 Skin: Intact with no visualized rashes ED course: 76-year-old male presents to the emergency department for strokelike symptoms. According to EMS last low-normal was 8:00 PM. NIH score of 10. Patient is not a candidate for alteplase at this time given that he takes and a coagulation medications. EKG interpretation: Ventricular rate 62, A. fib, right bundle branch block, Q's 22, QTc 519.no QTC prolongation, no ST or T-wave changes noted. EKG compared to 12/04/2021 showing no changes. Overall, this EKG is unremarkable. Chart review from history and present illness performed by general surgery shows that patient takes Eliquis. Chart review shows that patient was recently admitted to the hospital for mental status changes, lethargy, COPD heart failure. According to most recent HPI by hospitalist patient is known to use narcotics and tranquilizers frequently. Laboratory evaluation obtained. Patient is worsening leukopenia 1.7. Last labs from last month history 0.06. He does have macrocytosis. And also thrombocytopenia. This reflects pancytopenia of unknown cause. Coag panel is unremarkable. Metabolic panel is within acceptable limits. Troponins 0.025. Which appears to be his baseline. Computed tomography scan of the brain and CT angios of the head and neck shows no acute issues. Does not have any large vess el occlusion. Patient reevaluated at 10:30 PM. She is much more responsive. He is does not appear to be in acute distress. He is having confused and tangential speech. Patient given aspirin. He'll be admitted with consultation to neurology. - Related Data Home Medications Medication Instructions Recorded Confirmed ALPRAZolam [Xanax] 1 mg PO BID PRN 12/23/20 12/24/21 Albuterol Sulfate [Ventolin HFA] 1 - 2 puff INHALATION RT-Q6H PRN 12/23/20 12/24/21 Apixaban [Eliquis] 5 mg PO BID 12/23/20 12/24/21 Dextroamphetamine/Amphetamine 30 mg PO DAILY 12/23/20 12/24/21 [Adderall Xr] Diclofenac Sodium [Voltaren] 75 mg PO DAILY PRN 12/23/20 12/24/21 Losartan [Cozaar] 50 mg PO HS 12/23/20 12/24/21 Macitentan [Opsumit] 10 mg PO HS 12/23/20 12/24/21 Multivit-Min/Folic/Vit K/Lycop 1 tab PO DAILY 12/23/20 12/24/21 [Men's Multivitamin Tablet] Cyanocobalamin [Vitamin B-12 1,000 mcg SQ DAILY 06/20/21 12/24/21 Injection] Ergocalciferol [Vitamin D2 (1250 1,250 mcg PO Q30D 06/20/21 12/24/21 Mcg = 84130 Iu)] Folic Acid 1 mg PO DAILY 06/20/21 12/24/21 Gabapentin 300 mg PO TID 06/20/21 12/24/21 HYDROcodone/APAP 10-325MG [[place] 1 tab PO TID PRN 11/05/21 12/24/21 10-325] Furosemide [Lasix] 40 mg PO DAILY 12/04/21 12/24/21 Omeprazole 20 mg PO DAILY 12/04/21 12/24/21 Spironolactone-Hctz 25-25Mg 1 tab PO DAILY 12/04/21 12/24/21 [Aldactazide 25-25 MG] Previous Rx's Medication Instructions Recorded Sennosides [Senokot] 2 tab PO DAILY PRN #60 tablet 07/22/21 Ondansetron Odt [Zofran ODT] 1 tab PO Q8HR PRN #10 tab 11/11/21 Tamsulosin [Flomax] 0.4 mg PO DAILY #30 cap 11/17/21 Allergies Allergy/AdvReac Type Severity Reaction Status Date / Time No Known Allergies Allergy Verified 12/24/21 22:20 Review of Systems ROS Statement: Those systems with pertinent positive or pertinent negative responses have been documented in the HPI. ROS Other: All systems not noted in ROS Statement are negative. Past Medical History Past Medical History: Atrial Flutter, GERD/Reflux, Hypertension, Respiratory Disorder Additional Past Medical History / Comment(s): PULMONARY HTN. ANEMIA History of Any Multi-Drug Resistant Organisms: None Reported Past Surgical History: Heart Catheterization, Tonsillectomy Additional Past Surgical History / Comment(s): COLONOSCOPY Past Anesthesia/Blood Transfusion Reactions: No Reported Reaction Additional Past Anesthesia/Blood Transfusion Reaction / Comment(s): WAS SLOW TO COME OUT OF ANESTHESIA ONCE Past Psychological History: ADD/ADHD Smoking Status: Never smoker Past Alcohol Use History: Occasional Past Drug Use History: None Reported - Past Family History Mother Family Medical History: No Reported History Course Vital Signs 12/24/21 12/24/21 12/24/21 21:36 21:58 22:04 Temperature 97.5 F L Pulse Rate 78 68 Respiratory 16 16 16 Rate Blood Pressure 147/96 115/86 O2 Sat by Pulse 95 95 Oximetry Medical Decision Making - Lab Data Result diagrams: 12/24/21 21:34 12/24/21 21:34 Lab Results 12/24/21 12/24/21 12/24/21 Range/Units 21:34 21:34 21:34 WBC 1.7 L (3.8-10.6) k/uL RBC 3.75 L (4.30-5.90) m/uL Hgb 9.3 L (13.0-17.5) gm/dL Hct 31.8 L (39.0-53.0) % MCV 84.7 (80.0-100.0) fL MCH 24.9 L (25.0-35.0) pg MCHC 29.4 L (31.0-37.0) g/dL RDW 16.5 H (11.5-15.5) % Plt Count 135 L (150-450) k/uL MPV 6.9 Neutrophils % 64 % Lymphocytes % 22 % Monocytes % 7 % Eosinophils % 5 % Basophils % 1 % Neutrophils # 1.1 L (1.3-7.7) k/uL Lymphocytes # 0.4 L (1.0-4.8) k/uL Monocytes # 0.1 (0-1.0) k/uL Eosinophils # 0.1 (0-0.7) k/uL Basophils # 0.0 (0-0.2) k/uL Hypochromasia Marked Anisocytosis Slight PT 13.0 H (9.0-12.0) sec INR 1.2 H (<1.2) APTT 34.4 H (22.0-30.0) sec Sodium 135 L (137-145) mmol/L Potassium 3.6 (3.5-5.1) mmol/L Chloride 104 (98-107) mmol/L Carbon Dioxide 25 (22-30) mmol/L Anion Gap 6 mmol/L BUN 8 L (9-20) mg/dL Creatinine 0.80 (0.66-1.25) mg/dL Est GFR (CKD-EPI)AfAm >90 (>60 ml/min/1.73 sqM) Est GFR (CKD-EPI)NonAf 88 (>60 ml/min/1.73 sqM) Glucose 82 (74-99) mg/dL POC Glucose (mg/dL) (75-99) mg/dL POC Glu Kiss Machine Operator ID Calcium 8.4 (8.4-10.2) mg/dL Total Bilirubin 0.9 (0.2-1.3) mg/dL AST 23 (17-59) U/L ALT 8 (4-49) U/L Alkaline Phosphatase 104 (38-126) U/L Troponin I (0.000-0.034) ng/mL Total Protein 5.9 L (6.3-8.2) g/dL Albumin 3.2 L (3.5-5.0) g/dL 12/24/21 12/24/21 Range/Units 21:34 21:37 WBC (3.8-10.6) k/uL RBC (4.30-5.90) m/uL Hgb (13.0-17.5) gm/dL Hct (39.0-53.0) % MCV (80.0-100.0) fL MCH (25.0-35.0) pg MCHC (31.0-37.0) g/dL RDW (11.5-15.5) % Plt Count (150-450) k/uL MPV Neutrophils % % Lymphocytes % % Monocytes % % Eosinophils % % Basophils % % Neutrophils # (1.3-7.7) k/uL Lymphocytes # (1.0-4.8) k/uL Monocytes # (0-1.0) k/uL Eosinophils # (0-0.7) k/uL Basophils # (0-0.2) k/uL Hypochromasia Anisocytosis PT (9.0-12.0) sec INR (<1.2) APTT (22.0-30.0) sec Sodium (137-145) mmol/L Potassium (3.5-5.1) mmol/L Chloride (98-107) mmol/L Carbon Dioxide (22-30) mmol/L Anion Gap mmol/L BUN (9-20) mg/dL Creatinine (0.66-1.25) mg/dL Est GFR (CKD-EPI)AfAm (>60 ml/min/1.73 sqM) Est GFR (CKD-EPI)NonAf (>60 ml/min/1.73 sqM) Glucose (74-99) mg/dL POC Glucose (mg/dL) 82 (75-99) mg/dL POC Glu Kiss Machine Operator ID Matt Lucero Calcium (8.4-10.2) mg/dL Total Bilirubin (0.2-1.3) mg/dL AST (17-59) U/L ALT (4-49) U/L Alkaline Phosphatase (38-126) U/L Troponin I 0.025 (0.000-0.034) ng/mL Total Protein (6.3-8.2) g/dL Albumin (3.5-5.0) g/dL Critical Care Time Critical Care Time: Yes Total Critical Care Time: 33 Disposition Clinical Impression: Cerebrovascular accident (CVA) Disposition: ADMITTED IP TO THIS [facility] Condition: Serious Referrals: Clovis Espinosa MD [Primary Care Provider] - 1-2 days
[2021-12-24] MEDS ORDERED: NALOXONE 0.4 MG/ML 1 ML VIAL IVP STA (21:37)
[2021-12-24 21:39] LABS: Glucose,Whole Blood 82 mg/dL (75-99)
[2021-12-24 22:01] LABS: Anisocytosis Slight; Basophils % (A) 1 %; Eosinophils # (A) 0.1 k/uL (0-0.7); Eosinophils % (A) 5 %; HCT 31.8 % (39.0-53.0); HGB 9.3 gm/dL (13.0-17.5); Hypochromasia Marked; Lymphocytes # (A) 0.4 k/uL (1.0-4.8); Lymphocytes % (A) 22 %; MCH 24.9 pg (25.0-35.0); MCHC 29.4 g/dL (31.0-37.0); MCV 84.7 fL (80.0-100.0); Mean Platelet Volume 6.9; Monocytes # (A) 0.1 k/uL (0-1.0); Monocytes % (A) 7 %; Neutrophils # (A) 1.1 k/uL (1.3-7.7); Neutrophils % (A) 64 %; Platelet Count 135 k/uL (150-450); RBC 3.75 m/uL (4.30-5.90); RDW 16.5 % (11.5-15.5); WBC 1.7 k/uL (3.8-10.6)
[2021-12-24 22:04] LABS: INR 1.2 (<1.2); Partial Thromboplastin Time 34.4 sec (22.0-30.0)
--- NOTE | 2021-12-24 22:07 | CT ---
EXAMINATION TYPE: CT brain wo con for TPA DATE OF EXAM: 12/24/2021 COMPARISON: 12/04/2021 INDICATION: STROKE LIKE SYMPTOMS DLP: 1109.8 mGycm, Automated exposure control for dose reduction was used. CONTRAST: None CT of the brain is performed utilizing 3 mm thick sections through the posterior fossa and 3 mm thick sections through the remaining calvarium. Study is performed within 24 hours of arrival to the hosp ital. No abnormal hyperdensity is present to suggest an acute intracranial hemorrhage. No mass lesion is evident. No acute infarcts are evident. Ventricles and sulci are appropriate for the patient age. Paranasal sinuses and mastoid air cells within the [id number] are clear. IMPRESSIONS: 1. No acute intracranial process. MRI can be performed as clinically indicated.
[2021-12-24 22:08] LABS: ALT 8 U/L (4-49); AST 23 U/L (17-59); African American GFR (CKD) >90 (>60 ml/min/1.73 sqM); Albumin 3.2 g/dL (3.5-5.0); Alkaline Phosphatase 104 U/L (38-126); Anion Gap 6 mmol/L; Blood Urea Nitrogen 8 mg/dL (9-20); Calcium 8.4 mg/dL (8.4-10.2); Carbon Dioxide 25 mmol/L (22-30); Chloride 104 mmol/L (98-107); Glucose 82 mg/dL (74-99); Non-African American GFR(CKD) 88 (>60 ml/min/1.73 sqM); Potassium 3.6 mmol/L (3.5-5.1); Sodium 135 mmol/L (137-145); Total Bilirubin 0.9 mg/dL (0.2-1.3); Total Protein 5.9 g/dL (6.3-8.2)
--- NOTE | 2021-12-24 22:20 | CT ---
EXAMINATION TYPE: CT angio head neck DATE OF EXAM: 12/24/2021 COMPARISON: None HISTORY: STROKE LIKE SYMPTOMS CT DLP: 627.5 mGycm Automated exposure control for dose reduction was used. CONTRAST: Performed with IV Contrast, patient injected with 65 mL of Isovue 370. Images obtained from the aortic arch to the vertex of the brain with IV contrast. There are Three-D p ostprocessed images. There is normal branching pattern of the great vessels on the aortic arch. There is arterial flow in both subclavian arteries. There is arterial flow in the common internal and external carotid arteries bilaterally. There is plaque formation at the carotid artery bifurcations. There is less than 25% st enosis at the origins of both internal carotid arteries. There is arterial flow in both vertebral art eries. Left vertebral artery is larger than the right. There is no evidence of carotid or vertebral a rtery aneurysm or dissection. There is soft tissue air in the subcutis tissues around the skull base and temporal muscles. There is arterial flow in the anterior middle and posterior cerebral arteries. No evidence of intracr anial aneurysm or neovascularity. No mass effect. There is normal enhancement of the venous sinuses. No evidence of intracranial hemodynamic arterial stenosis. There is some air in the right jugular vei n. There is no evidence of aneurysm of the aortic arch. There is left pleural effusion. There are some e nlarged paratracheal lymph nodes up to 2 cm. IMPRESSION: There is some atherosclerotic vascular disease. No evidence of hemodynamic stenosis. No significant i ntracranial angiographic abnormality. The soft tissue air seen around the skull base and the neck that could relate to venous air bubbles. There is small air bubble in the right jugular vein. There is some mediastinal adenopathy. Adenopathy increased compared to old CT scan of 09/11/2019.
[2021-12-24] MEDS ORDERED: NALOXONE 0.4 MG/ML 1 ML VIAL IV PRN (22:30)
--- NOTE | 2021-12-24 23:04 | XR ---
EXAMINATION TYPE: XR chest 1V DATE OF EXAM: 12/24/2021 COMPARISON: 12/04/2021 HISTORY: Weakness and fatigue TECHNIQUE: Single view FINDINGS: Heart appears enlarged. No heart failure seen. Costophrenic angles are clear. There are evon st leads. IMPRESSION: Cardiomegaly which appears increased compared to old exam. No pulmonary consolidation or heart failure.
[2021-12-24] MEDS: ASPIRIN 81 MG PO STA (23:30)
[2021-12-25] MEDS: ASPIRIN 81 MG PO STA (01:31)
[2021-12-25] MEDS: SODIUM CHLORIDE 0.9% 1,000 ML IV SCH ×2 (04:14→21:39)
[2021-12-25] MEDS ORDERED: SENNOSIDES 8.6 MG TAB PO PRN (07:29)
[2021-12-25] MEDS ORDERED: HYDROcodone/APAP 7.5-325MG 1 EACH TAB PO PRN (07:33)
[2021-12-25] MEDS: APIXABAN 5 MG TAB PO SCH ×2 (08:42→20:37)
[2021-12-25] MEDS: TAMSULOSIN 0.4 MG CAP.ER.24H PO SCH (08:42)
[2021-12-25] MEDS: GABAPENTIN 300 MG CAP PO SCH ×3 (08:43→20:37)
[2021-12-25] MEDS: CYANOCOBALAMIN 1,000 MCG/ML 1 ML VIAL SQ SCH (08:43)
[2021-12-25] MEDS: FAMOTIDINE 20 MG/2 ML VIAL IV SCH ×2 (08:43→20:37)
[2021-12-25] MEDS: FUROSEMIDE 40 MG TAB PO SCH (08:43)
[2021-12-25] MEDS: FOLIC ACID 1 MG TAB PO SCH (08:49)
--- NOTE | 2021-12-25 10:26 | P.HPIM ---
History of Present Illness This is a pleasant 76 years old male with past medical history of Atrial Flutter, Eliquis GERD/Reflux, Hypertension, and prostatic hypertension, ADD/ADHD. His PCP is Dr. Espinosa Patient presents with "stroke with altered mental status and found to be very aphasic and dysarthric as per documents. Per EMS his NIH score of 10. Patient is not a candidate for alteplase at this time given that he takes his coagulation medications. Patient 1 lm emergency room he was fully awake and oriented, calm but feels generally weak and deconditioned while sitting in his bed. He states he could not remember what happened and last thing he remembers he wants to wait after eating. As per documents the presents with altered mental status was dysarthria and dysphasia however currently he is still confluently. He denies any headache or dizziness. No weakness or numbness. Patient thinks he is at baseline. He denies chest pain or dyspnea or coughing. He had diarrhea for a few days about 6 times yesterday. No more bowel movement today. No pain. No vomiting. States he had recent surgery for his left knee about one month ago. He denies smoking, alcohol or illicit drugs. Blood pressure is 115/70. Heart rate 45. He is afebrile. Labs showed leukopenia with the bleeding she 1.7, hemoglobin 9.3, platelet count 135 INR 1.0. Sodium 135, so CBC and liver enzymes are unremarkable. CT of the brain, CT of the brain: Could not obtain the report because of system error , however as per ED note ( Computed tomography scan of the brain and CT angios of the head and neck shows no acute issues. Does not have any large vessel occlusion) Chest x-ray: : (Could not obtain the report because of system error ) EKG showing atrial fibrillation at the rate of 62 Emergency room patient received aspirin 324 mg 1, [facility] MAPS was checked he is on [place] 10 and 7.5 alternately every 6 hours, gabapentin and abdominal Review of Systems CONSTITUTIONAL: No fever, no malaise, no fatigue. HEENT: No recent visual problems or hearing problems. Denied any sore throat. CARDIOVASCULAR: No orthopnea, PND, no palpitations, no syncope. PULMONARY: No shortness of breath, no cough, no hemoptysis. GASTROINTESTINAL: No diarrhea, no nausea, no vomiting, no abdominal pain. Normoactive bowel sounds. NEUROLOGICAL: No headaches, no weakness, no numbness. HEMATOLOGICAL: Denies any bleeding or petechiae. GENITOURINARY: Denies any burning micturition, frequency, or urgency. MUSCULOSKELETAL/RHEUMATOLOGICAL: Denies any joint pain, swelling, or any muscle pain. ENDOCRINE: Denies any polyuria or polydipsia. Past Medical History Past Medical History: Atrial Flutter, GERD/Reflux, Hypertension, Respiratory Disorder Additional Past Medical History / Comment(s): PULMONARY HTN. ANEMIA History of Any Multi-Drug Resistant Organisms: None Reported Past Surgical History: Heart Catheterization, Tonsillectomy Additional Past Surgical History / Comment(s): COLONOSCOPY Past Anesthesia/Blood Transfusion Reactions: No Reported Reaction Additional Past Anesthesia/Blood Transfusion Reaction / Comment(s): WAS SLOW TO COME OUT OF ANESTHESIA ONCE Past Psychological History: ADD/ADHD Smoking Status: Never smoker Past Alcohol Use History: Occasional Past Drug Use History: None Reported - Past Family History Mother Family Medical History: No Reported History Medications and Allergies Home Medications Medication Instructions Recorded Confirmed Type ALPRAZolam [Xanax] 1 mg PO BID PRN 12/23/20 12/24/21 History Albuterol Sulfate [Ventolin HFA] 1 - 2 puff INHALATION RT-Q6H PRN 12/23/20 12/24/21 History Apixaban [Eliquis] 5 mg PO BID 12/23/20 12/24/21 History Dextroamphetamine/Amphetamine 30 mg PO DAILY 12/23/20 12/24/21 History [Adderall Xr] Diclofenac Sodium [Voltaren] 75 mg PO DAILY PRN 12/23/20 12/24/21 History Losartan [Cozaar] 50 mg PO HS 12/23/20 12/24/21 History Macitentan [Opsumit] 10 mg PO HS 12/23/20 12/24/21 History Multivit-Min/Folic/Vit K/Lycop 1 tab PO DAILY 12/23/20 12/24/21 History [Men's Multivitamin Tablet] Cyanocobalamin [Vitamin B-12 1,000 mcg SQ DAILY 06/20/21 12/24/21 History Injection] Ergocalciferol [Vitamin D2 (1250 1,250 mcg PO Q30D 06/20/21 12/24/21 History Mcg = 99793 Iu)] Folic Acid 1 mg PO DAILY 06/20/21 12/24/21 History Gabapentin 300 mg PO TID 06/20/21 12/24/21 History Sennosides [Senokot] 2 tab PO DAILY PRN #60 tablet 07/22/21 12/24/21 Rx HYDROcodone/APAP 10-325MG [[place] 1 tab PO TID PRN 11/05/21 12/24/21 History 10-325] Ondansetron Odt [Zofran ODT] 1 tab PO Q8HR PRN #10 tab 11/11/21 12/24/21 Rx Tamsulosin [Flomax] 0.4 mg PO DAILY #30 cap 11/17/21 12/24/21 Rx Furosemide [Lasix] 40 mg PO DAILY 12/04/21 12/24/21 History Omeprazole 20 mg PO DAILY 12/04/21 12/24/21 History Spironolactone-Hctz 25-25Mg 1 tab PO DAILY 12/04/21 12/24/21 History [Aldactazide 25-25 MG] Allergies Allergy/AdvReac Type Severity Reaction Status Date / Time No Known Allergies Allergy Verified 12/24/21 22:20 Physical Exam Vitals: Vital Signs Temp Pulse Resp BP Pulse Ox 12/25/21 04:10 45 L 18 115/70 96 12/24/21 23:30 56 L 16 107/79 95 12/24/21 22:04 68 16 115/86 95 12/24/21 21:58 16 12/24/21 21:36 97.5 F L 78 16 147/96 95 Intake and Output 12/24/21 12/25/21 12/25/21 22:59 06:59 14:59 Other: Weight 99.9 kg - GENERAL: The patient is alert and oriented x3, not in any acute distress. Well developed, well nourished. Generally weak HEENT: Pupils are round and equally reacting to light. EOMI. No scleral icterus. No conjunctival pallor. Normocephalic, atraumatic. No pharyngeal erythema. No thyromegaly. CARDIOVASCULAR: S1 and S2 present. No murmurs, rubs, or gallops. PULMONARY: Chest is clear to auscultation, no wheezing or crackles. ABDOMEN: Soft, nontender, nondistended, normoactive bowel sounds. No palpable organomegaly. MUSCULOSKELETAL: No joint swelling or deformity. EXTREMITIES: No cyanosis, clubbing, or pedal edema. NEUROLOGICAL: Gross neurological examination did not reveal any focal deficits. SKIN: No rashes. No petechiae Results CBC & Chem 7: 12/24/21 21:34 12/24/21 21:34 Labs: Abnormal Lab Results - Last 24 Hours (Table) 12/24/21 12/24/21 12/24/21 Range/Units 21:34 21:34 21:34 WBC 1.7 L (3.8-10.6) k/uL RBC 3.75 L (4.30-5.90) m/uL Hgb 9.3 L (13.0-17.5) gm/dL Hct 31.8 L (39.0-53.0) % MCH 24.9 L (25.0-35.0) pg MCHC 29.4 L (31.0-37.0) g/dL RDW 16.5 H (11.5-15.5) % Plt Count 135 L (150-450) k/uL Neutrophils # 1.1 L (1.3-7.7) k/uL Lymphocytes # 0.4 L (1.0-4.8) k/uL PT 13.0 H (9.0-12.0) sec INR 1.2 H (<1.2) APTT 34.4 H (22.0-30.0) sec Sodium 135 L (137-145) mmol/L BUN 8 L (9-20) mg/dL Total Protein 5.9 L (6.3-8.2) g/dL Albumin 3.2 L (3.5-5.0) g/dL Assessment and Plan Assessment: Period of altered mental status with aphasia and dysarthria, suspicious for acute stroke, Versus TIA. Other differential including also toxic encephalopathy secondary to medication including benzodiazepines and opioids. Pancytopenia, which looks more chronic problem chronic atrial fibrillation on Eliquis, with control rate Hypertension, blood pressure currently is borderline History of GERD History of BPH History of ADD/ADHD Plan: Physical pleasant 76 years old male who presents with transient AMS suspicious for CVA/TIA in view of his history of atrial fibrillation. Continue with Eliquis Neurology consult Neuro check We will lower the dose of his norco from 10 down to 7.5, hold xanax for now Hold blood pressure medication lisinopril 20 mg, spironolactone- hydrochlorothiazide 25-25 mg for permissive hypertension Labs and medication were reviewed.. Continue same treatment. Continue with sy mptomatic treatment. Resume home medication. Monitor lytes and vitals. DVT and GI prophylaxis. Further recommendations depends on the clinical course of the patient DVT prophylaxis: Eliqujamila GI Prophylaxis: Pepcid PT/OT: Pending Swallow evaluation with speech therapy consult Prognosis is guarded
--- NOTE | 2021-12-25 12:28 | P.CNNES ---
History of Present Illness Consult date: 12/25/21 Requesting physician: Giovanni Berg Reason for Consult: Code stroke History of Present Illness: Patient is a 76-year-old right-handed male came to the hospital by ambulance yesterday at 9:10 PM. EMS flow sheet not available in the chart. As per patient, his daughter and patient's girlfriend notices that he was talking "crazy" yesterday evening, therefore he was brought to the hospital. Patient does not know anything more details about it. Patient believes that he was woken up from the bed sleep therefore he was confused. Patient states that he asked his friend for "a plastic bag to put the Fish in". He is not sure if he was just dreaming. Vital signs on arrival blood pressure 147/96, pulse rate 78 temperature 97.5. Patient's blood test shows WBC 1.7 hemoglobin 9.3 and platelets are 135. Patient's neutrophils are low 1.1 with lymphocytes 0.4. PT is 13.0, INR 1.2. Sodium 135 potassium 3.6, normal renal functions. Hepatic panel normal and troponin normal. CT head showed no acute intracranial process. I personally reviewed CT head and agree with the findings. CTA of head and neck showed some atherosclerotic vascular disease. No evidence of hemodynamic stenosis. No significant intracranial angiographic abnormality. The soft tissue seen around the skull base and the neck that could relate to venous air bubbles. The small air bubbles in the right jugular vein. There is some mediastinal adenopathy. Adenopathy increased compared to old computed tomography scan of 09/11/2019. EKG shows atrial fibrillation, right bundle branch block. Chest x-ray showed cardiomegaly which appears increased compared to old exam. No pulmonary consolidation or heart failure. Patient's home medications include eliquis 5 mg twice a day, Adderall XR 30 mg daily, Opsumit, losartan, gabapentin 300 mg 3 times a day, folic acid 1 mg, B12 1000 mg subcu daily hydrocodone, Zofran when necessary Flomax, Aldactone/HCTZ, omeprazole, Lasix. Patient states that he had undergone left knee surgery on 11/11/2021. He did stop Eliquis for 4 days before his surgery and was resumed right after the surgery. He has been compliant, did not miss the dose of Eliquis. Patient has never smoked. He used to be a heavy drinker from his early 20s, until he quit drinking 20 years ago. He denies any drug use. Denies hypertension or diabetes. Patient says that he does have history of neuropathy in his legs and hands. He usually walks without any assistive device, but since his left knee surgery on 11/11/2021, he has been using the walker. 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 I spoke to patient's significant other Liv Steward, who mentioned that she sent him to the hospital because he would not answer to her. He was not able to talk and would just say "Ah-Ah". There were no other focal symptoms reported. She believes that the symptoms lasted for 10 minutes. She also mentions that he has not been getting out of bed except for just going to the bathroom for last 45 days. He is tired all the time, and appears "drained". He was also breathing hard. Review of Systems Left knee pain from recent surgery. History of right knee arthroplasty. Denies any headache problem with the vision, hoarseness, sore throat, dysphagia. No chest pain, abdominal pain, nausea vomiting diarrhea. Past Medical History Past Medical History: Atrial Flutter, GERD/Reflux, Hypertension, Respiratory Disorder Additional Past Medical History / Comment(s): PULMONARY HTN. ANEMIA History of Any Multi-Drug Resistant Organisms: None Reported Past Surgical History: Heart Catheterization, Tonsillectomy Additional Past Surgical History / Comment(s): COLONOSCOPY Past Anesthesia/Blood Transfusion Reactions: No Reported Reaction Additional Past Anesthesia/Blood Transfusion Reaction / Comment(s): WAS SLOW TO COME OUT OF ANESTHESIA ONCE Past Psychological History: ADD/ADHD Smoking Status: Never smoker Past Alcohol Use History: Occasional Past Drug Use History: None Reported - Past Family History Mother Family Medical History: No Reported History Father Family Medical History: No Reported History Additional Family Medical History / Comment(s): Father was healthy Medications and Allergies Home Medications Medication Instructions Recorded Confirmed Type ALPRAZolam [Xanax] 1 mg PO BID PRN 12/23/20 12/24/21 History Albuterol Sulfate [Ventolin HFA] 1 - 2 puff INHALATION RT-Q6H PRN 12/23/20 12/24/21 History Apixaban [Eliquis] 5 mg PO BID 12/23/20 12/24/21 History Dextroamphetamine/Amphetamine 30 mg PO DAILY 12/23/20 12/24/21 History [Adderall Xr] Diclofenac Sodium [Voltaren] 75 mg PO DAILY PRN 12/23/20 12/24/21 History Losartan [Cozaar] 50 mg PO HS 12/23/20 12/24/21 History Macitentan [Opsumit] 10 mg PO HS 12/23/20 12/24/21 History Multivit-Min/Folic/Vit K/Lycop 1 tab PO DAILY 12/23/20 12/24/21 History [Men's Multivitamin Tablet] Cyanocobalamin [Vitamin B-12 1,000 mcg SQ DAILY 06/20/21 12/24/21 History Injection] Ergocalciferol [Vitamin D2 (1250 1,250 mcg PO Q30D 06/20/21 12/24/21 History Mcg = 67744 Iu)] Folic Acid 1 mg PO DAILY 06/20/21 12/24/21 History Gabapentin 300 mg PO TID 06/20/21 12/24/21 History Sennosides [Senokot] 2 tab PO DAILY PRN #60 tablet 07/22/21 12/24/21 Rx HYDROcodone/APAP 10-325MG [[place] 1 tab PO TID PRN 11/05/21 12/24/21 History 10-325] Ondansetron Odt [Zofran ODT] 1 tab PO Q8HR PRN #10 tab 11/11/21 12/24/21 Rx Tamsulosin [Flomax] 0.4 mg PO DAILY #30 cap 11/17/21 12/24/21 Rx Furosemide [Lasix] 40 mg PO DAILY 12/04/21 12/24/21 History Omeprazole 20 mg PO DAILY 12/04/21 12/24/21 History Spironolactone-Hctz 25-25Mg 1 tab PO DAILY 12/04/21 12/24/21 History [Aldactazide 25-25 MG] Allergies Allergy/AdvReac Type Severity Reaction Status Date / Time No Known Allergies Allergy Verified 12/24/21 22:20 Physical Examination - Vital Signs Vital Signs: Vital Signs Temp Pulse Pulse Resp BP BP Pulse Ox 12/25/21 08:00 58 L 16 145/82 94 L 12/25/21 04:10 45 L 18 115/70 96 12/24/21 23:30 56 L 16 107/79 95 12/24/21 22:04 68 16 115/86 95 12/24/21 21:58 16 12/24/21 21:36 97.5 F L 78 16 147/96 95 Intake and Output 12/24/21 12/25/21 12/25/21 22:59 06:59 14:59 Intake Total 200 Output Total 800 Balance -600 Intake: Oral 200 Output: Urine 800 Other: Voiding Method Urinal Weight 99.9 kg Patient is an elderly male, in no acute distress. Patient is alert awake oriented to time place and person. Speech and language functions are normal. Patient's speech appears slightly dysarthric in the beginning but then cleared up completely. Patient can name and repeat very well. Attention, concentration and fund of knowledge is adequate. On cranial examination, pupils are equal, round and reacting to light, visual degroot are full on confrontation, with no neglect on double simultaneous stimulation. His extraocular muscles are intact with no nystagmus. Face is symmetric, tongue protrudes to the midline. Palatal elevation and sensation normal, hearing and shoulder shrug normal, facial sensation normal. Shoulder shrug normal. On muscle strength testing, there is no pronator drift and the strength is normal in arms and legs distally and proximally. Deep tendon reflexes are symmetric 2 in the upper limbs, 0 at the knees 1 ankles and plantars are flat bilaterally. Sensory to touch is equal with no neglect. Cerebellar function showed no ataxia for gqolpa-bj-[id number] testing. Tone and bulk of muscles normal. Gait not checked. On general examination, there is no carotid bruit or murmur, S1-S2 audible. Abdomen is soft nontender. No organomegaly, bowel sounds present. Chest is clear to auscultation. He has some skin discoloration of his lower legs. He has pitting peripheral edema in the left lower leg since his left knee surgery. Results - Laboratory Findings CBC and BMP: 12/27/21 07:33 12/27/21 07:33 Abnormal Lab Findings: Abnormal Labs 12/24/21 12/24/21 12/24/21 21:34 21:34 21:34 WBC 1.7 L RBC 3.75 L Hgb 9.3 L Hct 31.8 L MCH 24.9 L MCHC 29.4 L RDW 16.5 H Plt Count 135 L Neutrophils # 1.1 L Lymphocytes # 0.4 L PT 13.0 H INR 1.2 H APTT 34.4 H Sodium 135 L BUN 8 L Total Protein 5.9 L Albumin 3.2 L Assessment and Plan Assessment: * Transient speech abnormality, rule out TIA * Evidence of bubbles in the blood vessels in the head and neck region. Rule out air/fat embolism. * Recent history of left knee arthroplasty 11/11/2021. * Previous history of alcoholism. * Chronic leukopenia, slightly worse. Plan: * MRI of brain to evaluate for CVA. Rule out fat/air embolism. * 2-D echo with bubble study * Fasting lipid panel, hemoglobin A1c. * Consider hematology consultation for worsening leukopenia, worsening mediastinal lymphadenopathy rule out neoplastic process. * Telemetry monitoring. * Neurology will follow. Thank you for the consult.
--- NOTE | 2021-12-25 20:08 | CA ---
Transthoracic Echo Report Name: Vitaliy Pope Age: 76 Gender: M : 1945 Exam Date: 12/25/2021 13:02 Exam Location: [facility] Ht (in): 72 Wt (lb): 220 Ordering Physician: Edu Sol MD Attending/Referring Phys: Apartment Assistant Manager Larissa Jurado RDCS Procedure CPT: Indications: tia Cardiac Hx: Technical Quality: Fair Contrast 1: Total Dose (mL): Contrast 2: Total Dose (mL): MEASUREMENTS (Male / Female) Normal Values 2D ECHO LV Diastolic Diameter PLAX 5.1 cm 4.2 - 5.9 / 3.9 - 5.3 cm LV Systolic Diameter PLAX 3.6 cm IVS Diastolic Thickness 1.6 cm 0.6 - 1.0 / 0.6 - 0.9 cm LVPW Diastolic Thickness 1.6 cm 0.6 - 1.0 / 0.6 - 0.9 cm LV Relative Wall Thickness 0.6 RV Internal Dim ED PLAX 4.9 cm LA Volume 218.3 cm??? 18 - 58 / 22 - 52 cm??? M-MODE Aortic Root Diameter MM 4.1 cm LA Systolic Diameter MM 7.2 cm LA Ao Ratio MM 1.8 AV Cusp Separation MM 2.6 cm DOPPLER AV Peak Velocity 133.5 cm/s AV Peak Gradient 7.1 mmHg LVOT Peak Velocity 122.2 cm/s LVOT Peak Gradient 6.0 mmHg MV Peak Velocity 211.9 cm/s MV Peak Gradient 18.0 mmHg MV Mean Velocity 105.5 cm/s MV Mean Gradient 5.6 mmHg MV Velocity Time Integral 55.4 cm MV Area PHT 2.3 cm??? Mitral E Point Velocity 129.5 cm/s Mitral A Point Velocity 32.4 cm/s Mitral E to A Ratio 4.0 MV Deceleration Time 336.1 ms TR Peak Velocity 432.5 cm/s TR Peak Gradient 74.8 mmHg Right Ventricular Systolic Press 79.3 mmHg FINDINGS Left Ventricle Left ventricular cavity size normal. Moderately increased left ventricular wall thickness. Left ventricular ejection fraction is estimated at 50-55 %. Right Ventricle Severe right ventricular dilatation. Severe pulmonary hypertension. There is right ventricular enlargement consistent with right ventricular volume overload. Right Atrium Moderate right atrial dilatation. Left Atrium Severe left atrial dilatation. Qtgb-jd-[id number] shunt seen at the atrial level. Mitral Valve Moderate mitral regurgitation. S/P Mitral valve repair, Mild Mitral valve stenosis. Aortic Valve No aortic stenosis. No aortic regurgitation. Aortic valve sclerosis. Tricuspid Valve Mgqhxjvx-en-gsnduf tricuspid regurgitation. Pulmonic Valve Trace to mild pulmonic regurgitation. Pericardium Small pericardial effusion. Pleural effusion. Aorta Normal size aortic root and proximal ascending aorta. CONCLUSIONS Significant biatrial enlargement Small nftv-bp-khxgl shunt by Doppler Right ventricular hypertrophy with reduced RV systolic function LV systolic function is around 50-55% Thickened mitral leaflets status post repair mild stenosis Small pericardial effusion with thickened pericardium Elevated right ventricular systolic pressures Previewed by: Dr. Mannie Cruz MD (Electronically Signed) Final Date: 25 Dec 2021 20:07
[2021-12-26] MEDS: APIXABAN 5 MG TAB PO SCH ×2 (09:24→20:11)
[2021-12-26] MEDS: FAMOTIDINE 20 MG/2 ML VIAL IV SCH ×2 (09:24→20:12)
[2021-12-26] MEDS: TAMSULOSIN 0.4 MG CAP.ER.24H PO SCH (09:24)
[2021-12-26] MEDS: FUROSEMIDE 40 MG TAB PO SCH (09:24)
[2021-12-26] MEDS: ASPIRIN 81 MG PO SCH (09:24)
[2021-12-26] MEDS: GABAPENTIN 300 MG CAP PO SCH ×3 (09:24→20:11)
[2021-12-26] MEDS: FOLIC ACID 1 MG TAB PO SCH (09:24)
[2021-12-26] MEDS: CYANOCOBALAMIN 1,000 MCG/ML 1 ML VIAL SQ SCH (09:24)
[2021-12-26 09:32] LABS: Chol/HDL Ratio 2.48 Ratio; LDL Cholesterol,Calculated 41.9 mg/dL (0.0-131.0)
--- NOTE | 2021-12-26 10:13 | P.CRDCN ---
History of Present Illness History of present illness: HISTORY OF PRESENTING ILLNESS This is a pleasant 76-year-old male past medical history significant for valvular heart disease status post mitral valve repair in 2018, pulmonary hypertension, persistent atrial fibrillation on Eliquis, hypertension, right bundle-branch block with left anterior fascicular block, left knee surgery 11/11/21 (held Eliquis for 4 days prior and restarted after surgery). He follows in the office with Dr. Cruz. We have been asked to see in consultation for EKG changes. Patient seen and examined at bedside, presents the emergency department with slurred speech and concerns for stroke. Patient does not recall what happened yesterday, apparently patient's girlfriend noted the patient to have garbled and slurred speech. Unclear how long the episode lasted. EMS was called. Patient brought to ER. He does not remember being transported to the hospital. His symptoms have resolved. He denies chest pain, shortness of breath, lightheadedness, dizziness, facial droop, weakness, palpitations. He endorses that he is compliant with his medications. He denies any tobacco use. He denies any history of ID, previous stroke or diabetes. DIAGNOSTICS -EKG reveals atrial fibrillation, heart rate 62, right bundle-branch block, left anterior fascicular block. Prior EKG in May 2021 with similar findings. No changes from prior EKG -Telemetry tracings indicate atrial fibrillation with controlled ventricular rates 40s-50s -Echocardiogram revealed EF of 5055%, moderate increased left ventricular wall thickness, severe right ventricular dilatation, severe pulmonary hypertension moderate right atrial dilatation moderate mitral regurgitation, status post mitral valve repair, moderate to severe tricuspid regurgitation, small pericardial effusion -Chest xray cardiomegaly -CT brain with no acute intracranial process. -CT angiogram revealed some atherosclerotic vascular disease, no evidence of hemodynamic stenosis, no significant intracranial abnormality -Laboratory reviewed, WBC 1.7, hemoglobin 9.3, platelets 135, INR 1.2, sodium 135, potassium 3.6, BUN 8, serum creatinine 0.8, hemoglobin A1c 5, troponin negative -Current home medications include spironolactonehctz 2525mg daily, losartan 50 mg nightly, losartan 50 mg nightly, Lasix 20 mg daily, Eliquis 5 mg twice a day -Cardiac catheterization in 2013 revealed normal coronary arteries, severe mitral regurgitation REVIEW OF SYSTEMS At the time of my exam: CONSTITUTIONAL: Denies fever or chills. CARDIOVASCULAR: Denies chest pain, shortness of breath, orthopnea, PND or palpitations. RESPIRATORY: Denies cough. GASTROINTESTINAL: Denies abdominal pain, diarrhea, constipation, nausea or v omiting. MUSCULOSKELETAL: Denies myalgias. NEUROLOGIC: Denies numbness, tingling, headacbe or weakness. ENDOCRINE: Denies fatigue, weight change, polydipsia or polyurina. GENITOURINARY: Denies burning, hematuria or urgency with micturation. HEMATOLOGIC: Denies history of anemia or bleeding. PHYSICAL EXAMINATION Blood pressure 116/61, heart rate 47, afebrile, oxygen saturation 95% on room air CONSTITUTIONAL: No apparent distress. HEENT: Head is normocephalic. Pupils are equal, round. Sclerae anicteric. Mucous membranes of the mouth are moist. No JVD. No carotid bruit. CHEST EXAMINATION: Lungs are clear to auscultation. No chest wall tenderness is noted on palpation or with deep breathing. HEART EXAMINATION: Irregular rate and rhythm. S1, S2 heard. Systolic ejection murmur at apex. , gallops or rub. ABDOMEN: Soft, nontender. Positive bowel sounds. EXTREMITIES: 2+ peripheral pulses, no lower extremity edema and no calf tenderness. NEUROLOGIC EXAMINATION: Patient is awake, alert and oriented x3. ASSESSMENT Transient speech abnormality Persistent atrial fibrillation, History of right bundle branch block with left anterior fascicular block, on Eliquis Severe mitral regurgitation status post mitral valve repair in 2018 Pulmonary hypertension, persistent atrial fibrillation on Eliquis Hypertension Recent left knee surgery 11/11/21 (held Eliquis for 4 days prior and restarted a fter surgery) History of non-compliance with medications PLAN No EKG changes noted. Patient with history of persistent atrial fibrillation, right bundle branch block with left anterior fascicular block, on Eliquis Recommend adding aspirin due to history of MV repair Continue anticoagulation with Eliquis Patient is not on any AV lester blocking agents. Neurology following, Plan for MRI brain Echocardiogram reviewed Follow up outpatient with Dr. Cruz Nurse practitioner note has been reviewed by physician. Signing provider agrees with the documented findings, assessment, and plan of care. Past Medical History Past Medical History: Atrial Fibrillation, Atrial Flutter, Heart Failure, COPD, GERD/Reflux, Hypertension, Osteoarthritis (OA), Pneumonia, Prostate Disorder, Respiratory Disorder, Rheumatoid Arthritis (RA), Vascular Disorder Additional Past Medical History / Comment(s): Pulmonary HTN, anemia, chronic low back and bilateral leg pain, neurpathy bilateral hands and legs, gouty arthritis, PVD, chronic leukopenia, BPH, constipation. History of Any Multi-Drug Resistant Organisms: None Reported Past Surgical History: Heart Catheterization, Hernia Repair, Tonsillectomy Additional Past Surgical History / Comment(s): Mitral valve repair at [facility], L knee arthroscopy, bilateral knee arthroplasties, umbilical hernia repair, colonoscopy, vasectomy. Past Anesthesia/Blood Transfusion Reactions: No Reported Reaction Additional Past Anesthesia/Blood Transfusion Reaction / Comment(s): WAS SLOW TO COME OUT OF ANESTHESIA ONCE Smoking Status: Never smoker - Past Family History Mother Family Medical History: No Reported History Additional Family Medical History / Comment(s): Mother was healthy Father Family Medical History: No Reported History Additional Family Medical History / Comment(s): Father was healthy Medications and Allergies Home Medications Medication Instructions Recorded Confirmed Type ALPRAZolam [Xanax] 1 mg PO BID PRN 12/23/20 12/24/21 History Albuterol Sulfate [Ventolin HFA] 1 - 2 puff INHALATION RT-Q6H PRN 12/23/20 12/24/21 History Apixaban [Eliquis] 5 mg PO BID 12/23/20 12/24/21 History Dextroamphetamine/Amphetamine 30 mg PO DAILY 12/23/20 12/24/21 History [Adderall Xr] Diclofenac Sodium [Voltaren] 75 mg PO DAILY PRN 12/23/20 12/24/21 History Losartan [Cozaar] 50 mg PO HS 12/23/20 12/24/21 History Macitentan [Opsumit] 10 mg PO HS 12/23/20 12/24/21 History Multivit-Min/Folic/Vit K/Lycop 1 tab PO DAILY 12/23/20 12/24/21 History [Men's Multivitamin Tablet] Cyanocobalamin [Vitamin B-12 1,000 mcg SQ DAILY 06/20/21 12/24/21 History Injection] Ergocalciferol [Vitamin D2 (1250 1,250 mcg PO Q30D 06/20/21 12/24/21 History Mcg = 23344 Iu)] Folic Acid 1 mg PO DAILY 06/20/21 12/24/21 History Gabapentin 300 mg PO TID 06/20/21 12/24/21 History Sennosides [Senokot] 2 tab PO DAILY PRN #60 tablet 07/22/21 12/24/21 Rx HYDROcodone/APAP 10-325MG [[place] 1 tab PO TID PRN 11/05/21 12/24/21 History 10-325] Ondansetron Odt [Zofran ODT] 1 tab PO Q8HR PRN #10 tab 11/11/21 12/24/21 Rx Tamsulosin [Flomax] 0.4 mg PO DAILY #30 cap 11/17/21 12/24/21 Rx Furosemide [Lasix] 40 mg PO DAILY 12/04/21 12/24/21 History Omeprazole 20 mg PO DAILY 12/04/21 12/24/21 History Spironolactone-Hctz 25-25Mg 1 tab PO DAILY 12/04/21 12/24/21 History [Aldactazide 25-25 MG] Allergies Allergy/AdvReac Type Severity Reaction Status Date / Time No Known Allergies Allergy Verified 12/24/21 22:20 Physical Exam Vitals: Vital Signs Temp Pulse Resp BP Pulse Ox 12/26/21 04:00 47 L 18 116/61 91 L 12/26/21 00:00 54 L 18 127/73 95 12/25/21 20:00 97.7 F 48 L 16 119/64 97 12/25/21 15:30 51 L 18 12/25/21 15:20 97.9 F 51 L 18 153/74 97 12/25/21 14:00 49 L 18 12/25/21 12:00 98.2 F 49 L 18 132/71 93 L Intake and Output 12/25/21 12/26/21 12/26/21 22:59 06:59 14:59 Intake Total 400 485 Output Total 1500 Balance -1100 485 Intake: Oral 400 485 Output: Urine 1500 Other: Voiding Method Urinal Urinal # Voids 2 Results 12/24/21 21:34 12/24/21 21:34 Current Medications Generic Name Dose Route Start Last Admin Trade Name Freq PRN Reason Stop Dose Admin Hydrocodone Bitart/Acetaminophen 1 each 12/25/21 07:33 Hydrocodone/Apap 7.5-325mg 1 Each Tab PO Q8HR PRN Pain Apixaban 5 mg 12/25/21 09:00 12/25/21 20:37 Apixaban 5 Mg Tab PO 5 mg BID MARTHA Administration Protocol Cyanocobalamin 1,000 mcg 12/25/21 09:00 12/25/21 08:43 Cyanocobalamin 1,000 Mcg/Ml 1 Ml Vial SQ 1,000 mcg DAILY MARTHA Administration Famotidine 20 mg 12/25/21 09:00 12/25/21 20:37 Famotidine 20 Mg/2 Ml Vial IV 20 mg Q12HR MARTHA Administration Folic Acid 1 mg 12/25/21 09:00 12/25/21 08:49 Folic Acid 1 Mg Tab PO Not Given DAILY MARTHA Furosemide 40 mg 12/25/21 09:00 12/25/21 08:43 Furosemide 40 Mg Tab PO 40 mg DAILY MARTHA Administration Gabapentin 300 mg 12/25/21 09:00 12/25/21 20:37 Gabapentin 300 Mg Cap PO 300 mg TID MARTHA Administration Sodium Chloride 1,000 mls @ 20 mls/hr 12/24/21 22:30 12/25/21 21:39 Saline 0.9% IV Not Given .Q24H MARTHA Naloxone HCl 0.2 mg 12/24/21 22:30 Naloxone 0.4 Mg/Ml 1 Ml Vial IV Q2M PRN Opioid Reversal Senna 17.2 mg 12/25/21 07:29 Sennosides 8.6 Mg Tab PO DAILY PRN Constipation Tamsulosin HCl 0.4 mg 12/25/21 09:00 12/25/21 08:42 Tamsulosin 0.4 Mg Cap.Er.24h PO 0.4 mg DAILY MARTHA Administration Intake and Output 12/25/21 12/26/21 12/26/21 22:59 06:59 14:59 Intake Total 400 485 Output Total 1500 Balance -1100 485 Intake: Oral 400 485 Output: Urine 1500 Other: Voiding Method Urinal Urinal # Voids 2 12/24/21 21:34 12/24/21 21:34
--- NOTE | 2021-12-26 11:33 | CDI ---
Documentation Clarification Form Date: 12/26/2021 11:18:59 AM From: Liv Roque CCS, CCDS Admit Date: 12/24/2021 10:30:00 PM Patient Name: Vitaliy Pope Visit Number: [id number] Discharge Date: ATTENTION: The Clinical Documentation Specialists (CDI) and [facility] Coding Staff appreciate your assistance in clarifying documentation. Please respond to the clarification below the line at the bottom and electronically sign. The CDI & [facility] Coding staff will review the response and follow-up if needed. Please note: Queries are made part of the Legal Health Record. If you have any questions, please contact the author of this message via ITS. Dr. Mac Carias: Heart Failure is documented in the patient's History of Present Illness in the 12/24 ED Note and the 12/26 Cardiology Consult without further specificity. Per the 12/25 Neurology Consult: No pulmonary consolidation or heart failure as per the 12/24 CXR. Additional information regarding the Type of CHF is requested. History/Risk Factors per the 12/25 H/P: Atrial Flutter on Eliquis, GERD, Hypertension, Pulmonary Hypertension, Anemia and ADD/ADHD. Clinical Indicators: Presented to the ED on 12/24 via EMS with aphasia & dysarthria and elevated blood pressure. Admit with CVA 12/24 VS: T 97.5, P 78, 68, 56, 45; R 16, BP 147/96, 115/86; PO 95 RA 12/24 LAB: WBC 1.7, RBC 3.75, Hgb 9.3, Hct 31.8, Pl Ct 135; Neutrophils 1.1, Lymphocytes 0.4; PT 13.0, INR 1.2, APTT 34.4; Na 135, BUN 8, Total Protein 5.9, Albumin 3.2, HDL Cholesterol 36.20 12/24 CXR: Cardiomegaly which appears increased compared to old exam, no pulmonary consolidation or heart failure. 12/25 ECHO: Significant biatrial enlargement. Right ventricular hypertrophy with reduced RV systolic function. LV systolic function around 50-55%. Severe pulmonary hypertension. Thickened mitral leaflets status post repair mild stenosis. Small pericardial effusion with thickened pericardium. Elevated right ventricular systolic pressures. Treatment: 12/24: Telemetry, Measured weights, O2 2Lnc, IV Na Cl 500 mls @ 999 mls/hr q31M, IV Narcan 0.4 mg x1. 5/5: PO Lasix 40 mg Daily (home dose) In your professional opinion, can you please clarify the Type of CHF if known? [ ] Chronic Systolic Heart Failure [ ] Chronic Diastolic Heart Failure [ ] Chronic Systolic & Diastolic Heart Failure [ ] Heart Failure ruled out [ ] Other, please specify: [ ] Unable to determine (Template Last Revised: September 2020) MTDD
[2021-12-26 11:52] VITALS: BMI 29.8
--- NOTE | 2021-12-26 13:53 | P.CONS ---
History of Present Illness - Reason for Consult Consult date: 12/26/21 Pancytopenia, Mediastinal adenopathy Requesting physician: Makenzie Wrae - History of Present Illness Mr. Pope has a history of neuropathy which she's receiving IV gammaglobulins and she was referred to us a a few months ago for evaluation of anemia. He has a history of iron deficiency and it was recommended that he increase his intake to 2 to 3 supplements daily which he has done. Despite the above, the patient remained iron deficient. At the time of his last visit I recommended two doses of Ferraheme which the patient received. His ferritin level a few weeks ago was up to 155 and his iron saturation was 21%. He is still taking oral iron supplementaion . He denies any unusual bleeding or bruising. He still has problems with walking from his neuropathy. He is complaining of fatigue which has not changed substantially with improvement of his iron levels. He has some shortness of venkat ath on exertion. He has atrial fibrillation. He continues on B12 injections. 08/11/19: Vitaliy is being referred by Dr Espinosa for evaluation of persistent anemia, as well a, leukopenia and borderlinne mediastinal lymphadenopathy. He is known to have chronic iron deficiency, had negative GI work up at [facility] earlier 2019 as he & stated. He is on oral iron supplement for years, was given IV Feraheme by us 2011. C/O increasing fatigue, as well as, severe arthropathy in both knees, seen by Dr Martinez, arthroplasty advised but not scheduled due to Anemia. He was noted to have Leukopenia without neutropenia, started having history of heavy alcohol comsumption, quit drinking 8-10 years ago, denies smoking but stated he was extensively exposed to second hand smoking. 09/22/19: Feels Ok, C/O bilateral knee pain, tolerated iron infusion (Feraheme) well 10/09/20: C/O severe arthralgias (Knees) and fatigue, denied melene, hematochezia, gross hematuria or hematemesis. He is taking oral iron supplement. Denies anorexia or weight loss. 12/17/20: Feels Ok, tired, C/O abdominal distention, tolerated iron infusion well, C/O fatigue 01/28/21: Feels Ok, tired. Bone marrow: no primary hematologic process. 07/09/21: CBC Stable. Given clearance for orthopedic surgery last visit 08/08/21: Had R knee arthroplasty by Dr Martinez, C/O fatigue 10/29/21: B12 marked low, WBC and ANC decreased (chronic), was receiving B12 injections with improvement, recommended to continue on the, pernicious anemia work-up negative, YARA positive not significant or diagnostic. In August Mediastinal Adenopathy noted, per Dr. Elena repeat in 3 months, this was scheduled for November. This was not performed by patient. patient now presenting to hospital at [facility]. We have been asked to further evaluate. CTA reveals worsening and increased adenopathy and pancytopenia. 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 Bone Marrow biopsy in 12/2020 [facility] did not reveal eidence of monoclonal or MDS or primary bone marrow disorder Review of Systems All systems: negative Constitutional: Reports as per HPI Past Medical History Past Medical History: Atrial Fibrillation, Atrial Flutter, Heart Failure, COPD, GERD/Reflux, Hypertension, Osteoarthritis (OA), Pneumonia, Prostate Disorder, Respiratory Disorder, Rheumatoid Arthritis (RA), Vascular Disorder Additional Past Medical History / Comment(s): Pulmonary HTN, anemia, chronic low back and bilateral leg pain, neurpathy bilateral hands and legs, gouty arthritis, PVD, chronic leukopenia, BPH, constipation. History of Any Multi-Drug Resistant Organisms: None Reported Past Surgical History: Heart Catheterization, Hernia Repair, Tonsillectomy Additional Past Surgical History / Comment(s): Mitral valve repair at [facility], L knee arthroscopy, bilateral knee arthroplasties, umbilical hernia repair, colonoscopy, vasectomy. Past Anesthesia/Blood Transfusion Reactions: No Reported Reaction Additional Past Anesthesia/Blood Transfusion Reaction / Comm: WAS SLOW TO COME OUT OF ANESTHESIA ONCE Smoking Status: Never smoker - Past Family History Mother Family Medical History: No Reported History Additional Family Medical History / Comment(s): Mother was healthy Father Family Medical History: No Reported History Additional Family Medical History / Comment(s): Father was healthy Medications and Allergies Home Medications Medication Instructions Recorded Confirmed Type ALPRAZolam [Xanax] 1 mg PO BID PRN 12/23/20 12/24/21 History Albuterol Sulfate [Ventolin HFA] 1 - 2 puff INHALATION RT-Q6H PRN 12/23/20 12/24/21 History Apixaban [Eliquis] 5 mg PO BID 12/23/20 12/24/21 History Dextroamphetamine/Amphetamine 30 mg PO DAILY 12/23/20 12/24/21 History [Adderall Xr] Diclofenac Sodium [Voltaren] 75 mg PO DAILY PRN 12/23/20 12/24/21 History Losartan [Cozaar] 50 mg PO HS 12/23/20 12/24/21 History Macitentan [Opsumit] 10 mg PO HS 12/23/20 12/24/21 History Multivit-Min/Folic/Vit K/Lycop 1 tab PO DAILY 12/23/20 12/24/21 History [Men's Multivitamin Tablet] Cyanocobalamin [Vitamin B-12 1,000 mcg SQ DAILY 06/20/21 12/24/21 History Injection] Ergocalciferol [Vitamin D2 (1250 1,250 mcg PO Q30D 06/20/21 12/24/21 History Mcg = 99721 Iu)] Folic Acid 1 mg PO DAILY 06/20/21 12/24/21 History Gabapentin 300 mg PO TID 06/20/21 12/24/21 History Sennosides [Senokot] 2 tab PO DAILY PRN #60 tablet 07/22/21 12/24/21 Rx HYDROcodone/APAP 10-325MG [[place] 1 tab PO TID PRN 11/05/21 12/24/21 History 10-325] Ondansetron Odt [Zofran ODT] 1 tab PO Q8HR PRN #10 tab 11/11/21 12/24/21 Rx Tamsulosin [Flomax] 0.4 mg PO DAILY #30 cap 11/17/21 12/24/21 Rx Furosemide [Lasix] 40 mg PO DAILY 12/04/21 12/24/21 History Omeprazole 20 mg PO DAILY 12/04/21 12/24/21 History Spironolactone-Hctz 25-25Mg 1 tab PO DAILY 12/04/21 12/24/21 History [Aldactazide 25-25 MG] Allergies Allergy/AdvReac Type Severity Reaction Status Date / Time No Known Allergies Allergy Verified 12/24/21 22:20 Physical Exam Vitals: Vital Signs Temp Pulse Resp BP Pulse Ox 12/26/21 12:00 58 L 123/59 99 05/06/22 08:00 97.3 F L 47 L 18 130/56 93 L 12/26/21 04:00 47 L 18 116/61 91 L 12/26/21 00:00 54 L 18 127/73 95 12/25/21 20:00 97.7 F 48 L 16 119/64 97 12/25/21 15:30 51 L 18 12/25/21 15:20 97.9 F 51 L 18 153/74 97 12/25/21 14:00 49 L 18 Intake and Output 12/25/21 12/26/21 12/26/21 22:59 06:59 14:59 Intake Total 400 485 420 Output Total 1500 Balance -1100 485 420 Intake: Oral 400 485 420 Output: Urine 1500 Other: Voiding Method Urinal Urinal Urinal # Voids 2 1 Weight 99.9 kg - Constitutional General appearance: cooperative, no acute distress - EENT Eyes: PERRLA ENT: hard of hearing, NA/AT - Neck Neck: lymphadenopathy - Respiratory Respiratory: bilateral: diminished - Cardiovascular Rhythm: regularly irregular - Gastrointestinal General gastrointestinal: soft - Integumentary Integumentary: pale - Musculoskeletal Musculoskeletal: generalized weakness - Psychiatric Psychiatric: A&O x's 3 Results CBC & Chem 7: 12/26/21 14:55 12/26/21 14:55 Labs: Abnormal Lab Results - Last 24 Hours (Table) 12/24/21 Range/Units 21:34 HDL Cholesterol 36.20 L (40.00-60.00) mg/dL CT scan - chest: report reviewed Assessment and Plan (1) Pancytopenia Narrative/Plan: - Patient has had chronically low blood counts that have gradually worsened over the years, he has had full work-up in outpatient by Dr. Elena including bone marrow biopsy 2020 without evidence of bone marrow etiology. 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 - Evidence of B12 deficiency and Iron deficiency and replacement when needed. - repeat pancytopenia and lymphadenopathy work-up today Current Visit: Yes Status: Acute Code(s): D61.818 - OTHER PANCYTOPENIA SNOMED Code(s): 851470820 (2) Normocytic anemia Current Visit: Yes Status: Acute Code(s): D64.9 - ANEMIA, UNSPECIFIED SNOMED Code(s): 385188514 (3) B12 deficiency anemia Current Visit: Yes Status: Acute Code(s): D51.9 - VITAMIN B12 DEFICIENCY ANEMIA, UNSPECIFIED SNOMED Code(s): 19095952 (4) Iron deficiency anemia Current Visit: Yes Status: Acute Code(s): D50.9 - IRON DEFICIENCY ANEMIA, UNSPECIFIED SNOMED Code(s): 46263406 (5) Mediastinal lymphadenopathy Narrative/Plan: Mediastinal adenopathy present since 2019, this has been monitored without change until recent imaging this hospital stay which mentions increase in size of adenopathy Current Visit: Yes Status: Acute Code(s): R59.0 - LOCALIZED ENLARGED LYMPH NODES SNOMED Code(s): 95940436 Plan: 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 At this time await further work-up Continue supportive care and replacements where needed Dr. Salcido: I have completed the full history and physical and developed the above impression and plan, agree with dictation, dictated as a scribe.
--- NOTE | 2021-12-26 15:10 | MR ---
EXAMINATION TYPE: MR brain wo con DATE OF EXAM: 12/26/2021 COMPARISON: CT brain 12/24/2021 HISTORY: Rule out stroke vs fat/air embolism CONTRAST: Performed utilizing 0 mL intravenous Gadavist gadolinium contrast. TECHNIQUE: Multiplanar, multiecho imaging on a 3.0 [place] magnet is performed through the brain. Stud y is performed within 24 hours of arrival to the hospital. The craniovertebral junction is normal. The pituitary is normal. Diffusion-weighted imaging is performed. No abnormal hyperintensity is present to suggest an acute i ntracranial infarct or acute ischemic change. Tiny old lacunar infarct may be within the left thalamus. This measures 0.3 cm. There is some hyperintensity within the superior medial left cerebellum and T2-weighted sequences thi s area measures approximately 1.1 cm and is not hyperintense on diffusion and may be a chronic white matter change. Consider multiple sclerosis within the differential. No additional white matter change s are evident however. Ventricles and sulci are prominent for the patient age. IMPRESSIONS: 1. No suspicious acute changes. 2. Previous subcutaneous emphysema is not appreciated on the current MRI exam. 3. White matter changes which is nonspecific in the superior medial left cerebellum. Prior ischemic c hange, lacunar infarct, demyelination such as from multiple sclerosis could be considered. This is ac [place] with no effusion hyperintensity. 4. 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
[2021-12-26 15:48] LABS: Anisocytosis Slight; Basophils % (A) 1 %; Eosinophils # (A) 0.1 k/uL (0-0.7); Eosinophils % (A) 5 %; HCT 32.8 % (39.0-53.0); HGB 9.8 gm/dL (13.0-17.5); Hypochromasia Marked; Lymphocytes # (A) 0.4 k/uL (1.0-4.8); Lymphocytes % (A) 20 %; MCH 25.3 pg (25.0-35.0); MCHC 29.8 g/dL (31.0-37.0); MCV 84.9 fL (80.0-100.0); Mean Platelet Volume 7.4; Monocytes # (A) 0.2 k/uL (0-1.0); Monocytes % (A) 8 %; Neutrophils # (A) 1.2 k/uL (1.3-7.7); Neutrophils % (A) 64 %; Platelet Count 185 k/uL (150-450); RBC 3.86 m/uL (4.30-5.90); RDW 16.6 % (11.5-15.5)
[2021-12-26 15:58] LABS: Albumin 3.8 g/dL (3.5-5.0); Calcium 8.7 mg/dL (8.4-10.2); Magnesium 1.7 mg/dL (1.6-2.3); Potassium 3.9 mmol/L (3.5-5.1); Total Protein 6.7 g/dL (6.3-8.2); Uric Acid 7.1 mg/dL (3.5-8.5)
[2021-12-26] MEDS: SODIUM CHLORIDE 0.9% 1,000 ML IV SCH (20:12)
[2021-12-26 23:45] LABS: Protein, Total 6.5 g/dL (6.2-8.2)
[2021-12-27 03:31] LABS: % Iron Saturation 10.61 (15.00-50.00); Iron 25 ug/dL (65-175); Rheumatoid Factor, Qnt 11 IU/mL (0-15); Total Iron Binding Capacity 231 ug/dL (228-460); Vitamin B12 >2000.0 pg/mL (200.0-944.0)
[2021-12-27] MEDS: CYANOCOBALAMIN 1,000 MCG/ML 1 ML VIAL SQ SCH (07:22)
[2021-12-27 08:11] LABS: Albumin 3.3 g/dL (3.5-5.0); Calcium 8.4 mg/dL (8.4-10.2); Potassium 3.7 mmol/L (3.5-5.1); Total Bilirubin 0.9 mg/dL (0.2-1.3); Total Protein 6.2 g/dL (6.3-8.2)
--- NOTE | 2021-12-27 08:13 | P.PN ---
Subjective Progress Note Date: 12/26/21 Patient was seen for a follow-up. Patient is laying comfortably in the bed. Denies any headache or any new neurological concerns. Objective - Vital Signs Vital signs: Vital Signs Temp 97.3 F L 12/26/21 08:00 Pulse 58 L 12/26/21 14:00 Resp 18 12/26/21 14:00 BP 123/59 12/26/21 12:00 Pulse Ox 99 12/26/21 12:00 Intake & Output 12/25/21 12/26/21 12/26/21 18:59 06:59 18:59 Intake Total 600 485 420 Output Total 2300 Balance -1700 485 420 Weight 99.9 kg 99.9 kg Intake: Oral 600 485 420 Output: Urine 2300 Other: Voiding Method Urinal Urinal Urinal # Voids 2 1 - Exam Patient is alert and awake. Speech and language functions appears normal. Cranial nerves are normal. Muscle strength is normal. Sensations are equal. - Labs CBC & Chem 7: 12/26/21 14:55 12/26/21 14:55 Labs: Abnormal Lab Results - Last 24 Hours (Table) 12/24/21 12/26/21 12/26/21 Range/Units 21:34 14:55 14:55 WBC 2.0 L (3.8-10.6) k/uL RBC 3.86 L (4.30-5.90) m/uL Hgb 9.8 L (13.0-17.5) gm/dL Hct 32.8 L (39.0-53.0) % MCHC 29.8 L (31.0-37.0) g/dL RDW 16.6 H (11.5-15.5) % Neutrophils # 1.2 L (1.3-7.7) k/uL Lymphocytes # 0.4 L (1.0-4.8) k/uL BUN 7 L (9-20) mg/dL HDL Cholesterol 36.20 L (40.00-60.00) mg/dL Assessment and Plan Assessment: * Transient speech abnormality, rule out TIA * Evidence of bubbles in the blood vessels in the head and neck region. Rule out air/fat embolism. * Atrial fibrillation/flutter. * History of mitral valve repair. * Recent history of left knee arthroplasty 11/11/2021. * Previous history of alcoholism. * Chronic leukopenia and mediastinal lymphadenopathy, slightly worse. Plan: * MRI of brain was performed today. Revealed no suspicious acute changes. Previous subcutaneous emphysema is not appreciated on current MRI exam. White matter changes which is nonspecific in the superior medial left cerebellum. No acute ischemic infarction. I reviewed MRI agree with the findings. * 2-D echo with bubble study revealed significant biatrial enlargement. Small [id number] shunt by Doppler. Right ventricular hypertrophy with reduced RV systolic function. Left ventricular systolic function is 50-55%. Thickened mitral leaflet status post repair, mild stenosis. Small pericardial effusion with thickened pericardium. Cardiology on board. Recommended to add aspirin 81 mg along with Eliquis due to history of mitral valve repair. * Fasting lipid panel cholesterol 90, LDL 41, HDL 36 and triglycerides 58. No indication for statins, as LDL is already < 70. * Hemoglobin A1c 5.0. * Hematology input appreciated. Chronically low blood counts felt to be related to long-term suppression from alcohol and liver disease. Patient has previous history of B12 deficiency and iron deficiency. Myelodysplastic syndrome suspected. Workup has been initiated. * Neurologically clear.
--- NOTE | 2021-12-27 08:28 | P.PN ---
Subjective Progress Note Date: 12/27/21 Principal diagnosis: Abnormal EKG The patient is a 76-year-old gentleman with a past medical history significant for permanent atrial fibrillation on oral anticoagulation as well as valvular heart disease and known severe mitral regurgitation status post mitral valve repair as well as pulmonary hypertension was admitted to the hospital with possible TIA presented as a transient speech abnormalities. He was seen this morning. He is asymptomatic. He underwent an MRI of the brain and that showed no acute abnormalities. Hemodynamically he is a stable. He would like to go home. He reports no pain in the chest or shortness of breath. From the cardiac vascular standpoint of view, the patient can be discharged home and follow-up with his primary entry specialist as an outpatient. He underwent an echo which revealed normal LV function was moderate mitral regurgitation and evidence of prior mitral valve repair. Objective - Vital Signs Vital signs: Vital Signs Temp 97.8 F 12/26/21 20:00 Pulse 49 L 12/27/21 04:00 Resp 20 12/27/21 04:00 BP 128/73 12/27/21 04:00 Pulse Ox 93 L 12/27/21 07:45 Intake & Output 12/26/21 12/27/21 12/27/21 18:59 06:59 18:59 Intake Total 420 485 Balance 420 485 Weight 99.9 kg 99 kg Intake: Intake, IV Titration 0 Amount Sodium Chloride 0.9% 1, 0 000 ml @ 20 mls/hr IV . Q24H COUNT INCLUDES THE [facility] Rx#:[id number] Oral 420 485 Other: Voiding Method Urinal Toilet # Voids 1 2 - Constitutional General appearance: Present: no acute distress - Respiratory Respiratory: bilateral: diminished - Cardiovascular Rhythm: regular Heart sounds: normal: S1, S2 - Labs CBC & Chem 7: 12/26/21 14:55 12/27/21 07:33 Labs: Abnormal Lab Results - Last 24 Hours (Table) 12/24/21 12/26/21 12/26/21 Range/Units 21:34 14:55 14:55 WBC 2.0 L (3.8-10.6) k/uL RBC 3.86 L (4.30-5.90) m/uL Hgb 9.8 L (13.0-17.5) gm/dL Hct 32.8 L (39.0-53.0) % MCHC 29.8 L (31.0-37.0) g/dL RDW 16.6 H (11.5-15.5) % Neutrophils # 1.2 L (1.3-7.7) k/uL Lymphocytes # 0.4 L (1.0-4.8) k/uL BUN (9-20) mg/dL Iron 25 L (65-175) ug/dL % Saturation 10.61 L (15.00-50.00) Transferrin 165.0 L (204.0-354.0) mg/dL Total Protein (6.3-8.2) g/dL Albumin (3.5-5.0) g/dL HDL Cholesterol 36.20 L (40.00-60.00) mg/dL Vitamin B12 >2000.0 H (200.0-944.0) pg/mL 12/26/21 12/27/21 Range/Units 14:55 07:33 WBC (3.8-10.6) k/uL RBC (4.30-5.90) m/uL Hgb (13.0-17.5) gm/dL Hct (39.0-53.0) % MCHC (31.0-37.0) g/dL RDW (11.5-15.5) % Neutrophils # (1.3-7.7) k/uL Lymphocytes # (1.0-4.8) k/uL BUN 7 L 7 L (9-20) mg/dL Iron (65-175) ug/dL % Saturation (15.00-50.00) Transferrin (204.0-354.0) mg/dL Total Protein 6.2 L (6.3-8.2) g/dL Albumin 3.3 L (3.5-5.0) g/dL HDL Cholesterol (40.00-60.00) mg/dL Vitamin B12 (200.0-944.0) pg/mL Assessment and Plan Assessment: Assessment #1 an episode of TIA presented as transient speech abnormalities #2 permanent atrial fibrillation on oral anticoagulation #3 history of mitral valve repair #4 hypertension and Plan #1 the patient underwent an echo showed normal LV function with evidence of mitral valve repair was moderate MR #2 he remains asymptomatic and hemodynamically stable #3 from the cardiac standpoint he can be discharged home
[2021-12-27] MEDS: ASPIRIN 81 MG PO SCH (08:40)
[2021-12-27] MEDS: TAMSULOSIN 0.4 MG CAP.ER.24H PO SCH (08:40)
[2021-12-27] MEDS: FAMOTIDINE 20 MG/2 ML VIAL IV SCH (08:40)
[2021-12-27] MEDS: FOLIC ACID 1 MG TAB PO SCH (08:40)
[2021-12-27] MEDS: GABAPENTIN 300 MG CAP PO SCH (08:40)
[2021-12-27] MEDS: FUROSEMIDE 40 MG TAB PO SCH (08:40)
[2021-12-27] MEDS: APIXABAN 5 MG TAB PO SCH (08:40)
[2021-12-27 08:42] LABS: Anisocytosis Slight; Basophils % (A) 2 %; Eosinophils # (A) 0.1 k/uL (0-0.7); Eosinophils % (A) 6 %; HCT 31.1 % (39.0-53.0); HGB 8.9 gm/dL (13.0-17.5); Hypochromasia Moderate; Lymphocytes # (A) 0.4 k/uL (1.0-4.8); Lymphocytes % (A) 28 %; MCH 24.3 pg (25.0-35.0); MCHC 28.7 g/dL (31.0-37.0); MCV 84.7 fL (80.0-100.0); Monocytes # (A) 0.2 k/uL (0-1.0); Monocytes % (A) 12 %; Neutrophils # (A) 0.7 k/uL (1.3-7.7); Neutrophils % (A) 50 %; Platelet Count 148 k/uL (150-450); RBC 3.67 m/uL (4.30-5.90); RDW 16.6 % (11.5-15.5)
[2021-12-27 08:46] LABS: WBC 1.5 k/uL (3.8-10.6)
[2021-12-27 11:17] VITALS: BP 126/66; PULSE 54; RESP 16; TEMP 97.3
[2021-12-27 12:45] LABS: T4/T8 Ratio (CD4:CD8) 3.5 (1.0-3.7)
[2021-12-27] MEDS ORDERED: FAMOTIDINE 20 MG TAB PO SCH (21:00)
[2021-12-29 13:33] LABS: Gamma Globulin 1.07 g/dL (0.70-1.50)
[2021-12-30 11:10] LABS: Free Kappa Lt Chain Qnt, Serum 5.02 mg/dL (0.33-1.94); Free Lambda Lt Chain Qnt, Seru 2.42 mg/dL (0.57-2.63)
--- NOTE | 2022-01-01 07:33 | CDI ---
Documentation Clarification Form Date: 12/26/2021 11:18:00 AM From: Liv Roque CCS, CCDS Admit Date: 12/24/2021 10:30:00 PM Patient Name: Vitaliy Pope Visit Number: [id number] Discharge Date: 12/27/2021 03:21:00 PM ATTENTION: The Clinical Documentation Specialists (CDI) and [facility] Coding Staff appreciate your assistance in clarifying documentation. Please respond to the clarification below the line at the bottom and electronically sign. The CDI & [facility] Coding staff will review the response and follow-up if needed. Please note: Queries are made part of the Legal Health Record. If you have any questions, please contact the author of this message via ITS. Dr. Mac Carias: Please document your response to this query prior to signing. Heart Failure is documented in the patient's History of Present Illness in the 12/24 ED Note and the 12/26 Cardiology Consult without further specificity. Per the 12/25 Neurology Consult: No pulmonary consolidation or heart failure as per the 12/24 CXR. Additional information regarding the Type of CHF is requested. History/Risk Factors per the 12/25 H/P: Atrial Flutter on Eliquis, GERD, Hypertension, Pulmonary Hypertension, Anemia and ADD/ADHD. Clinical Indicators: Presented to the ED on 12/24 via EMS with aphasia & dysarthria and elevated blood pressure. Admit with CVA 12/24 VS: T 97.5, P 78, 68, 56, 45; R 16, BP 147/96, 115/86; PO 95 RA 12/24 LAB: WBC 1.7, RBC 3.75, Hgb 9.3, Hct 31.8, Pl Ct 135; Neutrophils 1.1, Lymphocytes 0.4; PT 13.0, INR 1.2, APTT 34.4; Na 135, BUN 8, Total Protein 5.9, Albumin 3.2, HDL Cholesterol 36.20 12/24 CXR: Cardiomegaly which appears increased compared to old exam, no pulmonary consolidation or heart failure. 12/25 ECHO: Significant biatrial enlargement. Right ventricular hypertrophy with reduced RV systolic function. LV systolic function around 50-55%. Severe pulmonary hypertension. Thickened mitral leaflets status post repair mild stenosis. Small pericardial effusion with thickened pericardium. Elevated right ventricular systolic pressures. Treatment: 12/24: Telemetry, Measured weights, O2 2Lnc, IV Na Cl 500 mls @ 999 mls/hr q31M, IV Narcan 0.4 mg x1. 12/25: PO Lasix 40 mg Daily (home dose) In your professional opinion, can you please clarify the Type of CHF if known? [ ] Chronic Systolic Heart Failure [ ] Chronic Diastolic Heart Failure [ ] Chronic Systolic & Diastolic Heart Failure [ ] Heart Failure ruled out [ ] Other, please specify: [ ] Unable to determine (Template Last Revised: September 2020) MTDD
[2022-01-02 16:28] LABS: ANA Pattern Speckled
--- NOTE | 2022-01-06 08:11 | CDI ---
Documentation Clarification Form Date: 12/26/2021 11:18:00 AM From: Liv Roque CCS, CCDS Admit Date: 12/24/2021 10:30:00 PM Patient Name: Vitaliy Pope Visit Number: [id number] Discharge Date: 12/27/2021 03:21:00 PM ATTENTION: The Clinical Documentation Specialists (CDI) and [facility] Coding Staff appreciate your assistance in clarifying documentation. Please respond to the clarification below the line at the bottom and electronically sign. The CDI & [facility] Coding staff will review the response and follow-up if needed. Please note: Queries are made part of the Legal Health Record. If you have any questions, please contact the author of this message via ITS. Dr. Mac Carias: Please document your response prior to signing this query. Heart Failure is documented in the patient's History of Present Illness in the 12/24 ED Note and the 12/26 Cardiology Consult without further specificity. Per the 12/25 Neurology Consult: No pulmonary consolidation or heart failure as per the 12/24 CXR. Additional information regarding the Type of CHF is requested. History/Risk Factors per the 12/25 H/P: Atrial Flutter on Eliquis, GERD, Hypertension, Pulmonary Hypertension, Anemia and ADD/ADHD. Clinical Indicators: Presented to the ED on 12/24 via EMS with aphasia & dysarthria and elevated blood pressure. Admit with CVA 12/24 VS: T 97.5, P 78, 68, 56, 45; R 16, BP 147/96, 115/86; PO 95 RA 12/24 LAB: WBC 1.7, RBC 3.75, Hgb 9.3, Hct 31.8, Pl Ct 135; Neutrophils 1.1, Lymphocytes 0.4; PT 13.0, INR 1.2, APTT 34.4; Na 135, BUN 8, Total Protein 5.9, Albumin 3.2, HDL Cholesterol 36.20 12/24 CXR: Cardiomegaly which appears increased compared to old exam, no pulmonary consolidation or heart failure. 12/25 ECHO: Significant biatrial enlargement. Right ventricular hypertrophy with reduced RV systolic function. LV systolic function around 50-55%. Severe pulmonary hypertension. Thickened mitral leaflets status post repair mild stenosis. Small pericardial effusion with thickened pericardium. Elevated right ventricular systolic pressures. Treatment: 12/24: Telemetry, Measured weights, O2 2Lnc, IV Na Cl 500 mls @ 999 mls/hr q31M, IV Narcan 0.4 mg x1. 12/25: PO Lasix 40 mg Daily (home dose) In your professional opinion, can you please clarify the Type of CHF if known? [ ] Chronic Systolic Heart Failure [ ] Chronic Diastolic Heart Failure [ ] Chronic Systolic & Diastolic Heart Failure [ ] Heart Failure ruled out [ ] Other, please specify: [ ] Unable to determine (Template Last Revised: September 2020) MTDD
== END 2021-12-27 15:21 | disposition home health service (06) | DRG 69 ==
LOC: EC 21:10 → 3SCARD 22:30
PROVIDERS: ADMIT Hospitalist; ATTEND Hospitalist
DX: G45.9 Transient cerebral ischemic attack, unspecified (principal); R47.01 Aphasia; D61.818 Other pancytopenia; I45.2 Bifascicular block; I48.21 Permanent atrial fibrillation; I48.92 Unspecified atrial flutter; I31.3 Pericardial effusion (noninflammatory); R29.710 NIHSS score 10; R47.02 Dysphasia; D50.9 Iron deficiency anemia, unspecified; M10.9 Gout, unspecified; D75.89 Other specified diseases of blood and blood-forming organs; E53.8 Deficiency of other specified B group vitamins; F90.9 Attention-deficit hyperactivity disorder, unspecified type; G62.9 Polyneuropathy, unspecified; R59.0 Localized enlarged lymph nodes; I08.1 Rheumatic disorders of both mitral and tricuspid valves; I11.0 Hypertensive heart disease with heart failure; I27.20 Pulmonary hypertension, unspecified; I50.9 Heart failure, unspecified; I73.9 Peripheral vascular disease, unspecified; J44.9 Chronic obstructive pulmonary disease, unspecified; K31.819 Angiodysplasia of stomach and duodenum without bleeding; M06.9 Rheumatoid arthritis, unspecified; N40.0 Benign prostatic hyperplasia without lower urinary tract symptoms; Z79.01 Long term (current) use of anticoagulants; Z79.899 Other long term (current) drug therapy; Z91.14 Patient's other noncompliance with medication regimen; Z95.2 Presence of prosthetic heart valve; Z96.653 Presence of artificial knee joint, bilateral; Z98.890 Other specified postprocedural states; Z90.89 Acquired absence of other organs; Z87.01 Personal history of pneumonia (recurrent); Z77.22 Contact with and (suspected) exposure to environmental tobacco smoke (acute) (chronic)
CPT/HCPCS: 36415; 70450; 70496; 70498; 70551; 71045; 80053; 80061; 82607; 82728; 82784; 83036; 83540; 83550; 83615; 83735; 83883; 84165; 84425; 84484; 84550; 85025; 85610; 85730; 86038; 86039; 86334; 86360; 86431; 88184; 88185; 93005; 93306; 94760; 96361; 96374; 99291

== ENCOUNTER → 2022-02-09 | Outpatient (CLI) | payer MEDICARE, BC ==
[2022-02-09 16:32] LABS: African American GFR (CKD) >90 (>60 ml/min/1.73 sqM); Blood Urea Nitrogen 17 mg/dL (9-20); Non-African American GFR(CKD) 83 (>60 ml/min/1.73 sqM)
--- NOTE | 2022-02-09 19:13 | CT ---
EXAMINATION TYPE: CT abdomen pelvis w con DATE OF EXAM: 02/09/2022 COMPARISON: No previous CT scan is available for comparison HISTORY: abd distention CT DLP: 1553 mGycm Automated exposure control for dose reduction was used. TECHNIQUE: Helical acquisition of images was performed from the lung bases through the pelvis. CONTRAST: Performed with Oral Contrast and with IV Contrast, patient injected with 100 mL of Isovue 300. FINDINGS: LUNG BASES: Severe cardiomegaly with large pericardial effusion and small bilateral pleural effusions . Suspected signs of pulmonary edema, possibly related to CHF, please correlate clinically. LIVER/GB: Nodular outline of the liver with suspected cirrhotic hepatic changes, please correlate wit h liver function tests and hepatic viral serology. No definite hepatic focal lesion identified. No ra diodense gallbladder calculi. PANCREAS: No significant abnormality is seen. SPLEEN: Enlarged spleen measuring 15.7 cm along its AP dimension. ADRENALS: No significant abnormality is seen. KIDNEYS: Bilateral renal hypodensities likely representing renal cysts. Grossly unremarkable kidneys otherwise. FREE AIR: No free air is visualized. RETROPERITONEAL ADENOPATHY: Scattered subcentimeter retroperitoneal lymph nodes, nonspecific. REPRODUCTIVE ORGANS: No significant abnormality is seen URINARY BLADDER: No significant abnormality is seen. PELVIC ADENOPATHY: Enlarged bilateral inguinal lymph nodes measuring up to 16mm of the right side an d 15 mm the left side, please correlate clinically. Subcentimeter mesenteric, bilateral inguinal and external iliac lymph nodes. OSSEOUS STRUCTURES: Bilateral lower rib chronic healed fractures. Osteopenia. 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 BOWEL: Unremarkable stomach and duodenum. No evidence of small bowel obstruction. Scattered uncompli cated colonic diverticulosis. Segments of colonic wall thickening, please correlate with colonoscopy results. OTHER: Severe abdominal and pelvic ascites. Associated mesenteric vascular congestion and fat strandi ng, peritoneal carcinomatosis can't be excluded. Arterial atherosclerotic calcifications. IMPRESSION: Severe abdominal and pelvic ascites with sizable pericardial effusion and small pleural effusions. Th is could be related to severe cardiomegaly and CHF versus chronic hepatic disease, please correlate c linically and with liver function tests/hepatic viral serology. Peritoneal carcinomatosis cannot be e xcluded in the background of extensive mesenteric congestion and marked ascites. Other findings as de scribed above.
== END | disposition home or self-care (01) ==
LOC: RADCTMAIN 14:58
PROVIDERS: ATTEND Internal Medicine Hematology & Oncology
DX: R18.8 Other ascites (principal); I31.3 Pericardial effusion (noninflammatory); J90 Pleural effusion, not elsewhere classified; R59.0 Localized enlarged lymph nodes
CPT/HCPCS: 82565; 84520; 74177; 36415; Q9967

== ENCOUNTER → 2022-03-17 | Outpatient (CLI) | payer MEDICARE, BC ==
--- NOTE | 2022-03-17 12:08 | CA ---
Transthoracic Echo Report Name: Vitaliy Pope Age: 76 Gender: M : 1945 Exam Date: 03/17/2022 10:09 Exam Location: [place] [facility] Ht (in): 72 Wt (lb): 214 Ordering Physician: Neil Elena MD Attending/Referring Phys: Instrument Lens Generator Lyn Dorantes RDCS Procedure CPT: Indications: Z01.818 PREPROCEDURAL EXAMINATION Cardiac Hx: Technical Quality: Good Contrast 1: Total Dose (mL): Contrast 2: Total Dose (mL): MEASUREMENTS (Male / Female) Normal Values 2D ECHO LV Diastolic Diameter PLAX 5.7 cm 4.2 - 5.9 / 3.9 - 5.3 cm LV Systolic Diameter PLAX 2.8 cm IVS Diastolic Thickness 1.4 cm 0.6 - 1.0 / 0.6 - 0.9 cm LVPW Diastolic Thickness 2.8 cm 0.6 - 1.0 / 0.6 - 0.9 cm LV Relative Wall Thickness 0.7 RV Internal Dim ED PLAX 4.4 cm LA Systolic Diameter LX 6.8 cm 3.0 - 4.0 / 2.7 - 3.8 cm LA Volume 194.0 cm??? 18 - 58 / 22 - 52 cm??? M-MODE Aortic Root Diameter MM 3.4 cm LA Systolic Diameter MM 6.9 cm LA Ao Ratio MM 2.0 MV E Point Septal Separation 0.8 cm AV Cusp Separation MM 2.3 cm DOPPLER MV Peak Velocity 201.8 cm/s MV Peak Gradient 16.3 mmHg MV Mean Velocity 91.5 cm/s MV Mean Gradient 4.4 mmHg MV Velocity Time Integral 46.7 cm MV Area PHT 3.4 cm??? Mitral E Point Velocity 118.0 cm/s Mitral A Point Velocity 82.2 cm/s Mitral E to A Ratio 1.4 MV Deceleration Time 264.3 ms TR Peak Velocity 423.9 cm/s TR Peak Gradient 71.9 mmHg Right Ventricular Systolic Press 75.7 mmHg FINDINGS Left Ventricle Normal left ventricular size, wall thickness, left ventricular ejection fraction is estimated at 50-55%. mild increased septal wall thickness. Right Ventricle Moderate right ventricular dilatation. Severe pulmonary hypertension. Right Atrium The right atrium is normal in size. Left Atrium Severely increased left atrial diameter. Severely increased left atrial volume. Severely increased left atrial area. Mitral Valve PT had MV Clip 2019 Mv valve peak gradient 16.3mmHg mean gradient 4.4mmHG mild- to-moderate mitral regurgitation. Aortic Valve Structurally normal aortic valve without significant sclerosis or stenosis. There is no aortic regurgitation. Tricuspid Valve Structurally normal tricuspid valve without significant stenosis. Pulmonary artery systolic pressure is severely elevated Pulmonic Valve Structurally normal pulmonic valve without significant stenosis. There is mild pulmonic regurgitation. Pericardium Mild pericardial effusion. Aorta Normal aortic root dimension. CONCLUSIONS LV size is normal there is mild concentric LVH ejection fraction is about 50% there is significant right ventricular enlargement noted. There is severe pulmonary hypertension with flattening of interventricular septum. There is a mitral valve click with mild to moderate mitral regurgitation. Severe left atrial enlargement. There is aortic valve sclerosis and moderate tricuspid insufficiency with moderate to severe pulmonary hypertension. Small pericardial effusion Previewed by: Dr. Chandrika Mcelroy MD (Electronically Signed) Final Date: 17 March 2022 12:07
== END | disposition home or self-care (01) ==
LOC: RADECHMAIN 09:45
PROVIDERS: ATTEND Internal Medicine Hematology & Oncology
DX: Z01.818 Encounter for other preprocedural examination (principal)
CPT/HCPCS: 93306

== ENCOUNTER 2022-03-19 08:27 | Day surgery (SDC) | payer MEDICARE, BC ==
[2022-03-19 09:28] VITALS: TEMP 97.9
[2022-03-19 09:38] LABS: Mean Platelet Volume 7.4; Platelet Count 172 k/uL (150-450)
[2022-03-19 09:43] LABS: INR 1.2 (<1.2); Prothrombin Time 12.4 sec (9.0-12.0)
[2022-03-19] MEDS: ALBUMIN HUMAN 25% 50 ML in EMPTY BAG 1 BAG IVPB SCH ×4 (10:55→11:35)
[2022-03-19 11:20] VITALS: RESP 18
[2022-03-19 11:34] VITALS: BP 153/76; PULSE 46
--- NOTE | 2022-03-19 13:23 | US ---
Ultrasound-guided paracentesis. DATE OF EXAM: 03/19/2022 CLINICAL HISTORY: Ascites The procedure was discussed with the patient. The risks, complications, benefits, and alternatives we re discussed and any questions were answered. Informed consent was obtained. The patient was placed s upine on the ultrasound table and prepped and draped in the usual sterile fashion. All elements of maximal barrier technique were utilized. Under ultrasound guidance, access into the right lower quadrant was obtained, via the paracentesis catheter system and direct ultrasound guidanc e. Approximately 9.1 liters of straw-colored fluid was removed. The patient was stable throughout the pr ocedure and remained stable upon discharge from Department of Radiology. IMPRESSION: Successful paracentesis under ultrasound guidance.
[2022-03-19 23:37] LABS: LDH, Body Fluid Source Ascites
[2022-03-19 23:38] LABS: T. Protein, Body Fluid Source Ascites; Total Protein, Body Fluid 3970 mg/dL
[2022-03-20 01:06] LABS: Appearance,BF Clear
== END 2022-03-19 11:45 | disposition home or self-care (01) ==
LOC: RADPROMAIN 08:27
PROVIDERS: ATTEND Internal Medicine Hematology & Oncology
DX: R18.8 Other ascites (principal); Z79.82 Long term (current) use of aspirin; Z79.899 Other long term (current) drug therapy
CPT/HCPCS: 88108; 88305; 89050; 82565; 85049; 85610; 83615; 84157; 36415; 49083; P9047

== ENCOUNTER 2022-08-24 12:16 | Day surgery (SDC) | payer MEDICARE, BC ==
[2022-08-24 12:47] VITALS: TEMP 97.5
[2022-08-24 12:53] LABS: Mean Platelet Volume 8.1; Platelet Count 271 k/uL (150-450)
[2022-08-24 12:59] LABS: INR 1.3 (<1.2); Prothrombin Time 12.8 sec (9.0-12.0)
[2022-08-24 14:51] VITALS: PULSE 65
[2022-08-24 15:30] VITALS: BP 100/64; RESP 18
--- NOTE | 2022-08-25 08:47 | US ---
Ultrasound-guided paracentesis. DATE OF EXAM: 08/24/2022 CLINICAL HISTORY: Ascites The procedure was discussed with the patient. The risks, complications, benefits, and alternatives we re discussed and any questions were answered. Informed consent was obtained. The patient was placed s upine on the ultrasound table and prepped and draped in the usual sterile fashion. All elements of maximal barrier technique were utilized. Under ultrasound guidance, access into the right lower quadrant was obtained, via the paracentesis catheter system and direct ultrasound guidanc e. Approximately 9.6 liters of straw-colored fluid was removed. The patient was stable throughout the pr ocedure and remained stable upon discharge from Department of Radiology. IMPRESSION: Successful paracentesis under ultrasound guidance.
== END 2022-08-24 15:20 | disposition home or self-care (01) ==
LOC: RADPROMAIN 12:16
PROVIDERS: ATTEND Internal Medicine Hematology & Oncology
DX: R18.8 Other ascites (principal)
CPT/HCPCS: 36415; 49083; 82565; 85049; 85610